=== PATIENT | female | born 1960 | race Caucasian/White ===

== ENCOUNTER 2016-07-22 15:16 | Emergency (ER) | payer OTHER ==
[~2016-07-22] VITALS: Ht 167.6 cm; Wt 92.1 kg
[~2016-07-22 15:16] MED LIST: ACETAMINOPHEN-H1 TA2 PO; ALBUTEROL SULF0.5 M1 NEB; AMOXICILLIN500 MG PO; ARIPIPRAZOLE10 MG PO; AUGMENTIN 875875 MG PO; AZITHROMYCIN250 MG PO; BACTRIM 400 MG-1 TAB PO; BACTRIM DS 8001 TA1 PO; BACTRIM DS 8001 TAB PO; CENTRUM1 TA1 PO; CEPHALEXIN500 M1 PO; CIPROFLOXACIN500 MG PO; CLEOCIN150 MG PO; CLINDAMYCIN HC300 MG PO; CLONAZEPAM2 M1; CLONAZEPAM2 M1 PO; CYCLOBENZAPRINE10 MG PO; CYMBALTA30 MG PO; CYMBALTA60 MG PO; DIAZEPAM2 MG PO; DOXEPIN HCL25 MG PO; DOXYCYCLINE HY100 M3 PO; DOXYCYCLINE100 M3 PO; DULOXETINE HCL60 MG PO; DUONEB 3 MG/3 ML3 M1 INH; FLEXERIL5 MG PO; FOLIC ACID0.4 MG PO; GABAPENTIN400 MG PO; HYDROCODONE BIT1 T11 PO; HYDROCODONE/ACE1 T14 PO; IBU-8800 MG PO; KEFLEX500 M1 PO; KLONOPIN2 MG PO; LAMICTAL150 MG PO; LAMICTAL200 MG PO; LAMICTAL25 MG PO; LASIX40 MG PO; LISINOPRIL20 MG PO; LISINOPRIL5 MG PO; LOPRESSOR25 MG PO; Lopressor25 MG PO; MACROBID100 M1 PO; MEDROL DOSEPAK4 MG PO; METFORMIN500 MG PO; MICRONASE5 MG; MIRALAX POWDER17 G1 PO; MONODOX100 MG PO; MUCINEX600 MG PO; Motrin,Rufen400 MG PO; Motrin,Rufen800 MG PO; NAPROSYN500 MG PO; NATURE'S BLEND F1 MG PO; NEURONTIN800 MG PO; NICODERM21 MG/24 H TD; NORCO 325 MG-101 TAB PO; NORCO 325 MG-51 TAB PO; NORCO 5-325 TA1 EACH PO; OXYGEN NAS; PARAFON FORTE500 MG PO; PENICILLIN VK500 MG PO; PERCOCET 325 MG1 TA2 PO; PERCOCET 325 MG1 TA7 PO; PHENAZOPYRIDIN200 MG PO; PREDNISONE10 MG PO; PREDNISONE20 MG PO; PROVENTIL0.09 MG/A1 INH; PYRIDIUM200 MG PO; Percocet 325 MG1 TAB PO; Peridex 473 ML473 ML PO; REMERON15 M2 PO; RISPERDAL2 MG PO; SEROQUEL100 MG PO; SEROQUEL400 MG PO; SPIRIVA -- 3018 MCG PO; TORADOL10 MG PO; TRAMADOL HCL50 MG PO; TRAZADONE HYDR100 MG; TRAZADONE HYDR100 MG PO; TRAZODONE100 MG PO; TRAZODONE50 MG PO; TRIMOX500 MG PO; TYLENOL EXTRA500 M2 PO; TYLENOL W/CODEI1 TA2 PO; ULTRAM50 MG PO; VALIUM5 MG PO; VANCOCIN1000 MG/25; VENLAFAXINE HY150 M2 PO; VENLAFAXINE150 MG PO; VENTOLIN0.09 MG/AC INH; VIBRAMYCIN100 MG PO; VICODIN 5/500 505 MG PO; VICODIN 500 MG-1 TAB PO; VISTARIL25 M1 PO; Ventolin 02.5 MG/3 M INH; XANAX0.25 MG PO; XANAX1 MG PO; XANAX2 MG PO; ZOFRAN ODT4 MG SL; ZOFRAN ODT8 MG PO
[2016-07-22] MEDS ORDERED: XANAX1 MG PO (15:36)
[2016-07-22 15:37] VITALS: BP 152/96
[2016-07-22] MEDS ORDERED: CYMBALTA30 MG PO (15:37)
[2016-07-22] MEDS ORDERED: ABILIFY30 MG PO (15:37)
[2016-07-22 16:15] LABS: BASO # 0.1 10*3/uL (0.0-0.1); BASO % 0.8 % (0.0-1.0); EOS # 0.3 10*3/uL (0.0-0.4); EOS % 3.2 % (1.0-4.0); HEMATOCRIT 41.7 % (37.0-47.0); HEMOGLOBIN 14.1 g/dl (12.0-16.0); LYMPH # 2.5 10*3/uL (1.3-4.4); LYMPH % 28.7 % (27.0-41.0); MEAN CELL VOLUME 94.3 fl (81.0-99.0); MEAN CORPUSCULAR HGB 31.9 pg (27.0-31.0); MEAN CORPUSCULAR HGB CONC 33.8 g/dl (33.0-37.0); MEAN PLATELET VOLUME 8.9 fl (9.6-12.3); MONO # 0.6 10*3/uL (0.1-1.0); MONO % 6.7 % (3.0-9.0); NEUT # 5.3 10*3/uL (2.3-7.9); NEUT % 60.3 % (47.0-73.0); PLATELET COUNT AUTOMATED 212 10*3/uL (130-400); RED BLOOD COUNT 4.42 10*6/uL (4.10-5.10); RED CELL DISTRI WIDTH 12.8 % (0-14.5); WHITE BLOOD COUNT 8.7 10*3/uL (4.8-10.8)
[2016-07-22 16:31] LABS: ALBUMIN 3.2 gm/dl (3.1-4.5); ALKALINE PHOSPHATASE 107 U/L (45-117); BILIRUBIN, TOTAL 0.3 mg/dl (0.2-1.0); BUN 11 mg/dl (7-24); CARBON DIOXIDE 30 mmol/L (21-32); CHLORIDE 100 mmol/L (98-107); EST GLOM FILT AFRICAN AMERICAN > 60 ml/min; GLUCOSE 132 mg/dL (65-99); POTASSIUM 4.1 mmol/L (3.5-5.1); SGOT/AST 75 IU/L (3-35); SGPT/ALT 121 U/L (12-78); SODIUM 138 mmol/L (136-145); TOTAL PROTEIN 7.1 gm/dL (6.4-8.2)
[2016-07-22 16:50] LABS: TROPONIN I < 0.015 ng/ml (<0.045)
[2016-07-22] MEDS ORDERED: NAPROSYN500 MG PO (17:49)
== END 2016-07-22 19:03 | disposition home or self-care (01) ==
LOC: ED 15:16
PROVIDERS: Student in an Organized Health Care Education/Training Program
DX: K43.9 Ventral hernia without obstruction or gangrene (principal); F17.200 Nicotine dependence, unspecified, uncomplicated; F31.9 Bipolar disorder, unspecified; J44.9 Chronic obstructive pulmonary disease, unspecified; E11.9 Type 2 diabetes mellitus without complications; I10 Essential (primary) hypertension; I50.9 Heart failure, unspecified; F12.10 Cannabis abuse, uncomplicated; G40.909 Epilepsy, unspecified, not intractable, without status epilepticus; E66.9 Obesity, unspecified; Z68.34 Body mass index [BMI] 34.0-34.9, adult; Z98.51 Tubal ligation status; Z98.890 Other specified postprocedural states; Z90.710 Acquired absence of both cervix and uterus; Z79.899 Other long term (current) drug therapy; Z88.5 Allergy status to narcotic agent; Z88.6 Allergy status to analgesic agent; Z88.1 Allergy status to other antibiotic agents

== ENCOUNTER 2016-11-19 20:50 | Inpatient (IN) | payer OTHER ==
[~2016-11-19] VITALS: Ht 165.1 cm; Wt 96.8 kg
[~2016-11-19 20:50] MED LIST changes: +ABILIFY30 MG PO
[2016-11-19 21:09] VITALS: BP 151/86
[2016-11-19 22:17] LABS: BASO # 0.1 10*3/uL (0.0-0.1); BASO % 0.9 % (0.0-1.0); EOS # 0.3 10*3/uL (0.0-0.4); EOS % 3.2 % (1.0-4.0); HEMATOCRIT 42.3 % (37.0-47.0); HEMOGLOBIN 14.1 g/dl (12.0-16.0); LYMPH % 24.2 % (27.0-41.0); MEAN CELL VOLUME 97.9 fl (81.0-99.0); MEAN CORPUSCULAR HGB 32.6 pg (27.0-31.0); MEAN CORPUSCULAR HGB CONC 33.3 g/dl (33.0-37.0); MEAN PLATELET VOLUME 9.1 fl (9.6-12.3); MONO # 0.7 10*3/uL (0.1-1.0); NEUT # 5.1 10*3/uL (2.3-7.9); NEUT % 63.1 % (47.0-73.0); PLATELET COUNT AUTOMATED 219 10*3/uL (130-400); RED BLOOD COUNT 4.32 10*6/uL (4.10-5.10); RED CELL DISTRI WIDTH 12.7 % (0-14.5); WHITE BLOOD COUNT 8.1 10*3/uL (4.8-10.8)
--- NOTE | 2016-11-19 22:24 | NUR ---
DR. WARD NOTIFIED OF CRITICAL LACTIC ACID.
[2016-11-19 22:39] LABS: ALBUMIN 2.9 gm/dl (3.1-4.5); ALKALINE PHOSPHATASE 138 U/L (45-117); BUN 8 mg/dl (7-24); CHLORIDE 104 mmol/L (98-107); CREATININE 0.91 mg/dL (0.55-1.02); POTASSIUM 3.7 mmol/L (3.5-5.1); SGOT/AST 184 IU/L (3-35); SGPT/ALT 113 U/L (12-78); SODIUM 140 mmol/L (136-145); TOTAL PROTEIN 7.2 gm/dL (6.4-8.2)
[2016-11-19 23:25] VITALS: BP 148/82
[2016-11-20] VITALS (7 sets, daily range): BP systolic 124–158; BP diastolic 72–90
--- NOTE | 2016-11-20 00:50 | NUR ---
REPORT FROM POLICE DETENTION ATTENDANT
--- NOTE | 2016-11-20 01:01 | NUR ---
DR. WARD NOTIFIED THAT LACTIC ACID IS NOW 2.7
--- NOTE | 2016-11-20 01:21 | NUR ---
A 56, admitted to , under the services of TIMOTEO Oquendo DO with a diagnosis of CELLULITIS OF THE ABD WALL. Chief complaint is CELLULITIS. Patient arrived via stretcher from ER. Monitor applied. Initial assessment completed. Vital signs taken and recorded. TIMOTEO OQUENDO DO notified of admission to the unit. Orders received. See assessment for past medical history, medications and allergies. Patient and/or family oriented to unit. [facility] visitation policy reviewed. Clothing/patient valuable form completed. PAUL FUENTES
[2016-11-20] MEDS ORDERED: NAPROXEN500 MG PO (01:28)
[2016-11-20] MEDS ORDERED: REXULTI2 MG PO (01:30)
[2016-11-20] MEDS ORDERED: GABAPENTIN800 MG PO (01:31)
--- NOTE | 2016-11-20 01:32 | NUR ---
MED REC COMPLETED WITH PATIENT ALERT AND ORIENTED TO PERSON PLACE AND TIME
[2016-11-20] MEDS ORDERED: GLUCOPHAGE1000 MG PO (01:37)
[2016-11-20] MEDS ORDERED: JANUVIA100 MG PO (01:38)
[2016-11-20] MEDS ORDERED: DOXEPIN25 MG PO (01:40)
[2016-11-20] MEDS ORDERED: SPIRIVA -- 3018 MCG INH (01:42)
[2016-11-20] MEDS ORDERED: COMBIVENT RESPIM4 GM INH (01:43)
[2016-11-20] MEDS ORDERED: CYCLOBENZAPRINE10 MG PO (01:45)
[2016-11-20] MEDS ORDERED: LAMOTRIGINE200 MG PO (01:46)
--- NOTE | 2016-11-20 02:43 | NUR ---
ATTEMPTED TO CALL DR CALLES FOR PATIENT REQUESTING XANAX. NO ANSWER
--- NOTE | 2016-11-20 02:54 | NUR ---
ORDER FROM DR CALLES FOR 1MG PO XANAX NOW
[2016-11-20 03:09] LABS: BASO # 0.1 10*3/uL (0.0-0.1); BASO % 0.7 % (0.0-1.0); EOS # 0.2 10*3/uL (0.0-0.4); EOS % 2.8 % (1.0-4.0); HEMATOCRIT 37.9 % (37.0-47.0); HEMOGLOBIN 12.6 g/dl (12.0-16.0); LYMPH # 1.8 10*3/uL (1.3-4.4); LYMPH % 27.6 % (27.0-41.0); MEAN CELL VOLUME 97.9 fl (81.0-99.0); MEAN CORPUSCULAR HGB 32.6 pg (27.0-31.0); MEAN CORPUSCULAR HGB CONC 33.2 g/dl (33.0-37.0); MEAN PLATELET VOLUME 8.5 fl (9.6-12.3); MONO # 0.6 10*3/uL (0.1-1.0); MONO % 8.7 % (3.0-9.0); NEUT % 59.8 % (47.0-73.0); PLATELET COUNT AUTOMATED 169 10*3/uL (130-400); RED BLOOD COUNT 3.87 10*6/uL (4.10-5.10); RED CELL DISTRI WIDTH 12.8 % (0-14.5); WHITE BLOOD COUNT 6.7 10*3/uL (4.8-10.8)
[2016-11-20 03:22] LABS: ACT PARTIAL THROMBO TIME 28.8 SECONDS (20.8-31.5); BUN 8 mg/dl (7-24); CHLORIDE 106 mmol/L (98-107); CREATININE 0.66 mg/dL (0.55-1.02); POTASSIUM 3.4 mmol/L (3.5-5.1); SODIUM 141 mmol/L (136-145)
[2016-11-20 03:27] LABS: CHOLESTEROL 148 mg/dL (<200); HDL CHOLESTEROL 36 mg/dl (40-60); LDL CHOLESTEROL 80 mg/dL (9-159); TRIGLYCERIDES 162 mg/dl (<150); VLDL CHOLESTEROL 32 mg/dL (6-40)
--- NOTE | 2016-11-20 05:33 | NUR ---
DR AMES AWARE OF CONSULT. STATES WILL SEE THE PATIENT IN A COUPLE OF HOURS. NO NEW ORDERS AT THIS TIME.
--- NOTE | 2016-11-20 07:40 | NUR ---
MEDICATED WITH NORCO FOR ABD PAIN SHE RATES A 6.
--- NOTE | 2016-11-20 07:45 | NUR ---
DR. SHIPLEY NOTIFIED THAT PATIENT WAS REQUESTING HER INHALERS TO BE ORDERED OR A BREATHING TREATMENT FOR SOB, COUGH AND WHEEZING.
--- NOTE | 2016-11-20 09:00 | NUR ---
NO FURTHER COMPLAINTS OF PAIN.
--- NOTE | 2016-11-20 10:00 | NUR ---
AM MEDS TAKEN.
--- NOTE | 2016-11-20 10:35 | NUR ---
CHELLE VELASQUEZ [id number] Please refer to the physician's history and physical for past medical history, comorbid conditions, and allergies. Diagnosis: CELLULITIS OF ABD WALL VENTRAL HERNIA COPD Saroj Score: 22,LOW OR NO RISK WOUND DESCRIPTIONS: Location of the wound: left lower abdoman Type of wound: stage 3 Thickness: Full Size: 1.3cm x 2cm x 0.1cm Tunneling: none Undermining: none Sinus Tract: none Presence of Exudate: none Amount: None Color: Yellow, brown Odor: None Periwound Skin Appearance: Erythema Wound edges: approximated Location of the wound: right lower abdoman Type of wound: stage 3 Thickness: Full Size: 0.5cm x 0.7cm x 0.1cm Tunneling: none Undermining: none Sinus Tract: none Presence of Exudate: Amount: None Color: Brown Odor: None Periwound Skin Appearance: Normal Wound edges: approximated Pain (associated with wound): patient denied pain at time of assessment How does patient state this happened? patient stated she has had these wounds "for awhile" and cannot get them to heal completely. Location of the wound: left knee Type of wound: trauma Thickness: Partial Size: 4.5cm x 2.5cm x <0.1cm Tunneling: none Undermining: none Sinus Tract: none Presence of Exudate: Amount: None Color: Red Odor: None Periwound Skin Appearance: Normal Wound edges: closed Pain (associated with wound): patient denied pain at time of assessment How does patient state this happened? Patient states she fell a couple weeks ago. Patient refused treatment except for sureprep to this area. Location of the wound: Left great toe Type of wound: stage 3 Thickness: Full Size: 0.7cm x 1.5cm x <0.1 cm Tunneling: none Undermining: none Sinus Tract: none Presence of Exudate: none Amount: None Color: Yellow Odor: None Periwound Skin Appearance: Normal Wound edges: approximated Pain (associated with wound): patient denied pain at time of assessment How does patient state this happened? Patient states she has been following podiatry in [facility] "for awhile". Patient states she had seen the office rental clerk 11/16/16 but no treatment at home. Patient refused podiatry consult and stated she would follow up with the office rental clerk in [place]. PAtient did agree for Dr. De La Rosa to look at the wound. If wound is on legs/feet or hands, capillary refill time, pulses, color temp, sensation: Capillary refill <3 seconds. Pulse palpable. Surface the patient is resting on: Position Pro SKIN PREVENTION RECOMMENDATION: 1. Pressure redistribution support surface as appropriate 2. Elevate heels 3. Remove boots/TEDS every shift and reapply 4. Head of bed 30 degrees as tolerated 5. Assess nutrition and hydration 6. Manage moisture 7. Avoid the use of containment devices while in bed 8. Use absorptive products on surfaces limit layers of linens on bed 9. Turn and reposition every 1-2 hours in bed and every 1 hour in chair as tolerated 10. Weight shifts every 15 minutes while up in chair 11. Offloading with pillows or device to keep heels elevated off bed 12. Monitor skin at least every shift 13. Inspect under medical devices twice a day WOUND TREATMENT RECOMMENDATIONS: Consult surgery for possible debridement of abdoman wounds and left great toe. Abdoman wounds: Cleanse wound NS. Apply sureprep, versatel, therahoney and cover with optifoam gentle. Left knee wound apply sureprep and leave open to air Left great toe: Cleanse wound NS. Apply sureprep, therahoney and cover with dry gauze.
--- NOTE | 2016-11-20 11:57 | NUR ---
MEDICATED WITH NORCO FOR ABD PAIN SHE RATES A 6 ON THE PAIN SCALE.
--- NOTE | 2016-11-20 13:00 | NUR ---
PATIENT RESTING WITH NO VOICED COMPLAINTS.
--- NOTE | 2016-11-20 16:44 | NUR ---
MEDICATED WITH NORCO FOR ABD PAIN HE RATES A 6 ON THE PAIN SCALE.
--- NOTE | 2016-11-20 17:40 | NUR ---
NO FURTHER COMPLAINTS OF PAIN.
--- NOTE | 2016-11-20 20:00 | NUR ---
PT SITTING IN BED, WATCHING TV. PT IS A&O X3. PT REPORTS NO DISTRESS AT THIS TIME. LUNGS DIMINISHED AND WHEEZING IN ALL VALDEZ WITH A HARSH COUGH. NO EDEMA NOTED. BOWEL SOUNDS PRESENT X4 QUADS.
--- NOTE | 2016-11-20 20:10 | NUR ---
PT REQUESTED PAIN MEDICATION FOR ABDOMINAL PAIN. PER PT, PAIN IS CONSTANT AND RATED AT 8 OUT OF 10 ON 0-10 SCALE. NORCO WAS GIVEN.
--- NOTE | 2016-11-20 21:03 | NUR ---
PT REQUESTED MEDICATION FOR HEARTBURN AND A NICOTINE PATCH. TELEPHONED DR. BAZZI PER PT REQUEST. ORDERS RECEIVED.
--- NOTE | 2016-11-20 21:05 | NUR ---
PAIN MEDICATION EFFECTIVE. PT RATES PAIN AT 3 OUT OF 10.
--- NOTE | 2016-11-20 22:37 | NUR ---
PT REQUESTED MEDICATION TO HELP HER SLEEP. RESTORIL WAS GIVEN.
--- NOTE | 2016-11-20 22:58 | NUR ---
PT REQUESTED MEDICATION FOR HER LEFT KNEE. HER KNEE WAS CLEASNED WITH NORMAL SALINE, WIPED DRY, AND SUREPREP WAS APPLIED. PT TOLERATED WELL. CURRENTLY UP, SITTING IN CHAIR.
--- NOTE | 2016-11-20 23:51 | NUR ---
PT REQUESTED PAIN MEDICATION. PT RATES PAIN AT 7 OUT OF 10 IN THE ABDOMINAL AREA AND CONSTANT. NORCO WAS GIVEN.
[2016-11-21] VITALS: BP 155/91
--- NOTE | 2016-11-21 00:50 | NUR ---
PAIN MEDICATION WAS EFFECTIVE. PT SLEEPING COMFORTABLY, NO DISTRESS NOTED.
--- NOTE | 2016-11-21 03:52 | NUR ---
NORCO GIVEN PER ORDER FOR LOWER ABD PAIN RATED "7". SEE MAR.
--- NOTE | 2016-11-21 04:45 | NUR ---
PARKER HELPING WITH PAIN PER PT. TAKES EDGE OFF PAIN RATED "4".
[2016-11-21 06:26] LABS: BASO % 0.8 % (0.0-1.0); EOS # 0.2 10*3/uL (0.0-0.4); EOS % 3.5 % (1.0-4.0); HEMATOCRIT 36.9 % (37.0-47.0); HEMOGLOBIN 12.1 g/dl (12.0-16.0); LYMPH # 1.8 10*3/uL (1.3-4.4); LYMPH % 34.7 % (27.0-41.0); MEAN CELL VOLUME 99.5 fl (81.0-99.0); MEAN CORPUSCULAR HGB 32.6 pg (27.0-31.0); MEAN CORPUSCULAR HGB CONC 32.8 g/dl (33.0-37.0); MONO # 0.5 10*3/uL (0.1-1.0); MONO % 9.6 % (3.0-9.0); NEUT # 2.6 10*3/uL (2.3-7.9); NEUT % 51.2 % (47.0-73.0); PLATELET COUNT AUTOMATED 151 10*3/uL (130-400); RED BLOOD COUNT 3.71 10*6/uL (4.10-5.10); RED CELL DISTRI WIDTH 12.8 % (0-14.5); WHITE BLOOD COUNT 5.1 10*3/uL (4.8-10.8)
[2016-11-21 07:17] LABS: BUN 9 mg/dl (7-24); CREATININE 0.61 mg/dL (0.55-1.02); MAGNESIUM 1.9 mg/dL (1.5-2.1)
[2016-11-21 07:20] LABS: CHLORIDE 106 mmol/L (98-107); SODIUM 140 mmol/L (136-145)
[2016-11-21 08:00] VITALS: BP 170/82
--- NOTE | 2016-11-21 08:59 | NUR ---
MEDICATED WITH NORCO FOR ABD PAIN SHE RATES A 5 ON THE PAIN SCALE.
[2016-11-21 09:03] VITALS: BP 150/80
--- NOTE | 2016-11-21 10:00 | NUR ---
NO FURTHER COMPLAINTS OF PAIN.
--- NOTE | 2016-11-21 10:30 | NUR ---
AM MEDS TAKEN.
[2016-11-21] MEDS ORDERED: CLEOCIN HCL300 MG PO (11:15)
--- NOTE | 2016-11-21 12:20 | NUR ---
Discharge instructions reviewed with patient/family. Patient receptive and verbalizes understanding. Follow-up care arranged. Written instructions given to patient/family. JN BHARDWAJ
== END 2016-11-21 12:20 | disposition home or self-care (01) | DRG 871 ==
LOC: ED 20:50 → EDHOLD 23:38 → 5E 23:52
PROVIDERS: Emergency Medicine Emergency Medical Services; Internal Medicine; Internal Medicine Nephrology; ADMIT Internal Medicine
DX: A41.9 Sepsis, unspecified organism (principal); R65.21 Severe sepsis with septic shock; E87.2 Acidosis; I11.0 Hypertensive heart disease with heart failure; I50.9 Heart failure, unspecified; L03.311 Cellulitis of abdominal wall; L02.211 Cutaneous abscess of abdominal wall; K43.9 Ventral hernia without obstruction or gangrene; E11.65 Type 2 diabetes mellitus with hyperglycemia; J44.9 Chronic obstructive pulmonary disease, unspecified; R74.0 Nonspecific elevation of levels of transaminase and lactic acid dehydrogenase [LDH]; E66.9 Obesity, unspecified; F31.9 Bipolar disorder, unspecified; G40.909 Epilepsy, unspecified, not intractable, without status epilepticus; G60.0 Hereditary motor and sensory neuropathy; D64.9 Anemia, unspecified; Z72.0 Tobacco use; Z68.35 Body mass index [BMI] 35.0-35.9, adult; Z88.6 Allergy status to analgesic agent; Z88.1 Allergy status to other antibiotic agents; Z88.5 Allergy status to narcotic agent; Z79.899 Other long term (current) drug therapy; Z99.81 Dependence on supplemental oxygen; Z98.51 Tubal ligation status; Z90.710 Acquired absence of both cervix and uterus; Z82.49 Family history of ischemic heart disease and other diseases of the circulatory system

== ENCOUNTER 2016-12-08 14:52 | Emergency (ER) | payer OTHER ==
[~2016-12-08] VITALS: Ht 167.6 cm; Wt 99.3 kg
[~2016-12-08 14:52] MED LIST changes: +CLEOCIN HCL300 MG PO; +COMBIVENT RESPIM4 GM INH; +DOXEPIN25 MG PO; +GABAPENTIN800 MG PO; +GLUCOPHAGE1000 MG PO; +JANUVIA100 MG PO; +LAMOTRIGINE200 MG PO; +NAPROXEN500 MG PO; +REXULTI2 MG PO; +SPIRIVA -- 3018 MCG INH
[2016-12-08 14:59] VITALS: BP 143/82
[2016-12-08 15:38] LABS: BASO # 0.1 10*3/uL (0.0-0.1); EOS # 0.4 10*3/uL (0.0-0.4); HEMATOCRIT 47.1 % (37.0-47.0); HEMOGLOBIN 16.1 g/dl (12.0-16.0); LYMPH # 2.4 10*3/uL (1.3-4.4); LYMPH % 26.4 % (27.0-41.0); MEAN CELL VOLUME 94.6 fl (81.0-99.0); MEAN CORPUSCULAR HGB 32.3 pg (27.0-31.0); MEAN CORPUSCULAR HGB CONC 34.2 g/dl (33.0-37.0); MEAN PLATELET VOLUME 9.5 fl (9.6-12.3); MONO # 0.7 10*3/uL (0.1-1.0); MONO % 7.9 % (3.0-9.0); NEUT # 5.4 10*3/uL (2.3-7.9); NEUT % 60.4 % (47.0-73.0); PLATELET COUNT AUTOMATED 249 10*3/uL (130-400); RED BLOOD COUNT 4.98 10*6/uL (4.10-5.10); RED CELL DISTRI WIDTH 12.3 % (0-14.5)
[2016-12-08 15:53] LABS: ALBUMIN 3.5 gm/dl (3.1-4.5); ALKALINE PHOSPHATASE 155 U/L (45-117); BUN 13 mg/dl (7-24); CHLORIDE 99 mmol/L (98-107); CREATININE 0.72 mg/dL (0.55-1.02); LIPASE 615 U/L (73-393); POTASSIUM 4.3 mmol/L (3.5-5.1); SGOT/AST 107 IU/L (3-35); SGPT/ALT 144 U/L (12-78); SODIUM 136 mmol/L (136-145); TOTAL PROTEIN 8.8 gm/dL (6.4-8.2)
[2016-12-08] MEDS ORDERED: NORCO 5-325 TA1 EACH PO (16:08)
[2016-12-08] MEDS ORDERED: CEFADROXIL500 M1 PO (16:08)
[2016-12-08] MEDS ORDERED: bactrim ds PO (16:08)
== END 2016-12-08 16:23 | disposition home or self-care (01) ==
LOC: ED 14:52
PROVIDERS: Physician Assistant
DX: L03.311 Cellulitis of abdominal wall (principal); Z88.6 Allergy status to analgesic agent; Z88.1 Allergy status to other antibiotic agents; Z88.5 Allergy status to narcotic agent; Z98.51 Tubal ligation status; Z90.710 Acquired absence of both cervix and uterus; F17.200 Nicotine dependence, unspecified, uncomplicated; F10.20 Alcohol dependence, uncomplicated; Z82.49 Family history of ischemic heart disease and other diseases of the circulatory system; L02.211 Cutaneous abscess of abdominal wall

== ENCOUNTER → 2016-12-16 | Outpatient (CLI) | payer OTHER ==
[~2016-12-16] MED LIST changes: +CEFADROXIL500 M1 PO; +bactrim ds PO
== END | disposition home or self-care (01) ==
LOC: WOUNDCARE 02:57
DX: E11.622 Type 2 diabetes mellitus with other skin ulcer (principal); L98.491 Non-pressure chronic ulcer of skin of other sites limited to breakdown of skin; E66.01 Morbid (severe) obesity due to excess calories; K43.2 Incisional hernia without obstruction or gangrene; F32.9 Major depressive disorder, single episode, unspecified; F41.9 Anxiety disorder, unspecified; I10 Essential (primary) hypertension; Z90.710 Acquired absence of both cervix and uterus; F17.210 Nicotine dependence, cigarettes, uncomplicated; Z72.89 Other problems related to lifestyle; Z68.33 Body mass index [BMI] 33.0-33.9, adult

== ENCOUNTER → 2016-12-23 | Outpatient (CLI) | payer OTHER ==
[~2016-12-23] MED LIST changes: +FLONASE ALLERG9.9 ML NAS; +LISINOPRIL10 M1 PO; +METFORMIN HCL1000 MG PO; +NAPROXEN500 M1 PO; +NTS1 EACH TD; +PROAIR HFA8.5 GM INH; +REMERON45 M1 PO; +SPIRIVA 5 CAPS18 MCG INH; +VENTOLIN 02.5 MG/3 M INH; +ZYRTEC10 MG PO
== END | disposition home or self-care (01) ==
LOC: WOUNDCARE 02:47
DX: E10.622 Type 1 diabetes mellitus with other skin ulcer (principal); L02.211 Cutaneous abscess of abdominal wall; L98.491 Non-pressure chronic ulcer of skin of other sites limited to breakdown of skin; E66.01 Morbid (severe) obesity due to excess calories; K43.9 Ventral hernia without obstruction or gangrene; F32.9 Major depressive disorder, single episode, unspecified; I10 Essential (primary) hypertension; F41.9 Anxiety disorder, unspecified; Z90.710 Acquired absence of both cervix and uterus; F17.210 Nicotine dependence, cigarettes, uncomplicated; Z72.89 Other problems related to lifestyle

== ENCOUNTER 2016-12-26 17:12 | Inpatient (IN) | payer OTHER ==
[~2016-12-26] VITALS: Ht 167.6 cm; Wt 98.1 kg
[~2016-12-26 17:12] MED LIST changes: -FLONASE ALLERG9.9 ML NAS; -LISINOPRIL10 M1 PO; -METFORMIN HCL1000 MG PO; -NAPROXEN500 M1 PO; -NTS1 EACH TD; -PROAIR HFA8.5 GM INH; -REMERON45 M1 PO; -SPIRIVA 5 CAPS18 MCG INH; -VENTOLIN 02.5 MG/3 M INH; -ZYRTEC10 MG PO
[2016-12-26 17:21] VITALS: BP 160/95
[2016-12-26 17:59] LABS: BASO # 0.1 10*3/uL (0.0-0.1); BASO % 0.9 % (0.0-1.0); EOS # 0.3 10*3/uL (0.0-0.4); EOS % 4.3 % (1.0-4.0); HEMATOCRIT 41.3 % (37.0-47.0); MEAN CELL VOLUME 95.6 fl (81.0-99.0); MEAN CORPUSCULAR HGB 32.4 pg (27.0-31.0); MEAN CORPUSCULAR HGB CONC 33.9 g/dl (33.0-37.0); MEAN PLATELET VOLUME 9.5 fl (9.6-12.3); MONO # 0.6 10*3/uL (0.1-1.0); MONO % 8.3 % (3.0-9.0); NEUT # 4.5 10*3/uL (2.3-7.9); NEUT % 60.1 % (47.0-73.0); PLATELET COUNT AUTOMATED 192 10*3/uL (130-400); RED BLOOD COUNT 4.32 10*6/uL (4.10-5.10); RED CELL DISTRI WIDTH 12.6 % (0-14.5); WHITE BLOOD COUNT 7.5 10*3/uL (4.8-10.8)
[2016-12-26 18:00] VITALS: BP 155/87
[2016-12-26 18:15] LABS: ALBUMIN 3.4 gm/dl (3.1-4.5); BUN 8 mg/dl (7-24); CHLORIDE 103 mmol/L (98-107); CREATININE 0.65 mg/dL (0.55-1.02); POTASSIUM 4.6 mmol/L (3.5-5.1); SGOT/AST 277 IU/L (3-35); SGPT/ALT 217 U/L (12-78); SODIUM 138 mmol/L (136-145)
[2016-12-26 18:18] LABS: ALKALINE PHOSPHATASE 139 U/L (45-117)
--- NOTE | 2016-12-26 19:10 | NUR ---
NOTIFIED PHYSCIAN OF PATIENTS PAIN RATED 10/10 TO LEFT ABDOMEN AT SITE OF ABCESS. PHYSCIAN INFORMED ME THAT SHE WOULD LIKE TO REVIEW PATIENTS CHARTS AND SEE PATIENT BEFORE MEDICATING. INFORMED PATIENT OF PHYSCIANS REPLY.
--- NOTE | 2016-12-26 20:00 | NUR ---
PATIENT STILL HAS NOT BEEN SEEN BY PHYSICIAN. PATIENT IS REQUESTING PAIN MEDICATION. PATIENT STATES SHE IS SIGNING OUT AMA IN 15 MINUTES IF PHYSCIAN HAS NOT SEEN HER BY THEN.
--- NOTE | 2016-12-26 20:15 | NUR ---
PATIENT SIGNED OUT AMA.
--- NOTE | 2016-12-26 20:26 | NUR ---
The patient, CHELLE VELASQUEZ, 56, 64, [id number], [id number], presented to the Emergency Department at 1712. The patient's Chief Complaint was LLQ ABDOMINAL . The patient subsequently left "Against Medical Advice" at 2014. Treatment completed included FLUIDS, LABS, IMAGING . Possible complications and consequences of not following medical advice were clearly explained to the patient by Dr. WARD , and JORGE REID. Assessment of the patient's competence, for making the decision to refuse completion of previously requested exam and treatment, includes alert and oriented. Attempts 1 made to get patient involved in persuading the patient to accept, JOSE DANIEL Miller DO, the physician's recommendations. Discussion included RISKS OF LEAVING . The patient's response was WANTS PAIN MEDICATION . Family/friends who witnessed the discussion includes . Signatures WERE requested. The patient DID sign the chart; this was witnessed by JORGE REID. The patient's reason for departing, prior to completion of treatment was "tired of waiting". The patient's disposition is dc against medical advice, to the care of patient. Arrangements have been made for the ED staff to "Call Back" the patient the following day, to inquire about the patient's medical status and encourage CHELLE VELASQUEZ, to seek medical attention, if this has not been completed. JORGE POST.
[2016-12-26 21:30] VITALS: BP 161/77
--- NOTE | 2016-12-26 21:32 | NUR ---
PATIENT TO 5TH FLOOR IMC.
--- NOTE | 2016-12-26 22:46 | NUR ---
Time: 2136 A 56 year old FEMALE admitted to 5E under services of DAVIDA DIAZ DO Pt. arrived via from ER. Chief complaint: ABDOMINAL PAIN, ABCESS ON LLQ OF ABDOMEN. LENO WISEMAN
[2016-12-27] VITALS: BP 133/70
[2016-12-27] MEDS ORDERED: CYMBALTA60 MG PO (00:03)
[2016-12-27] MEDS ORDERED: ZYRTEC10 MG PO (00:06)
--- NOTE | 2016-12-27 00:09 | NUR ---
MEDICATION LIST IS UP TO DATE VIA PATIENT MEDICATION LIST.
--- NOTE | 2016-12-27 00:18 | NUR ---
DR REED WAS NOTIFIED OF MEDICATION ORDERS PLACED IN FOR REVIEW AND WOUND ORDERS ARE NEEDED FOR AN ABDOMINAL ABCESS. NO ORDERS RECEIVED.
--- NOTE | 2016-12-27 01:42 | NUR ---
PATIENT COMPLAINS OF ABDOMINAL PAIN, 09/23. DR MARIE WAS NOTIFIED AND GAVE TO FOR DILAUDID 1MG IV Q3 HOURS PRN FOR ABDOMINAL PAIN.
--- NOTE | 2016-12-27 03:00 | NUR ---
PAIN MEDICATION EFFECTIVE, PAIN IN ABDOMEN SUBSIDED, NOW 5/10.
--- NOTE | 2016-12-27 05:12 | NUR ---
24 HR chart check completed.
--- NOTE | 2016-12-27 05:33 | NUR ---
PATIENT LYING IN BED ALL NIGHT EXCEPT TO TOILET. ATB'S GIVEN PER ORDER. IV INTACT. NO S/S OF DISTRESS. OCC. PAIN IN ABDOMEN. ABDOMINAL WOUND CLEANED AND DRESSED. KJ HOSE PLACED.
[2016-12-27 06:41] LABS: BASO # 0.1 10*3/uL (0.0-0.1); BASO % 0.8 % (0.0-1.0); EOS # 0.3 10*3/uL (0.0-0.4); EOS % 4.5 % (1.0-4.0); HEMATOCRIT 41.6 % (37.0-47.0); HEMOGLOBIN 13.9 g/dl (12.0-16.0); LYMPH # 1.9 10*3/uL (1.3-4.4); LYMPH % 31.2 % (27.0-41.0); MEAN CELL VOLUME 97.9 fl (81.0-99.0); MEAN CORPUSCULAR HGB 32.7 pg (27.0-31.0); MEAN CORPUSCULAR HGB CONC 33.4 g/dl (33.0-37.0); MEAN PLATELET VOLUME 9.2 fl (9.6-12.3); MONO # 0.5 10*3/uL (0.1-1.0); MONO % 8.2 % (3.0-9.0); NEUT # 3.4 10*3/uL (2.3-7.9); PLATELET COUNT AUTOMATED 167 10*3/uL (130-400); RED BLOOD COUNT 4.25 10*6/uL (4.10-5.10); RED CELL DISTRI WIDTH 12.9 % (0-14.5); WHITE BLOOD COUNT 6.2 10*3/uL (4.8-10.8)
[2016-12-27 06:44] VITALS: BP 133/70
[2016-12-27 07:02] LABS: ACT PARTIAL THROMBO TIME 29.5 SECONDS (20.8-31.5)
--- NOTE | 2016-12-27 07:05 | NUR ---
DR ARRIAZA NOTIFIED OF PATIENT IN HOSPITAL. DR ARRIAZA SAID WOULD BE IN.
[2016-12-27 07:24] LABS: BUN 10 mg/dl (7-24); CHLORIDE 103 mmol/L (98-107); CREATININE 0.67 mg/dL (0.55-1.02); SODIUM 139 mmol/L (136-145)
[2016-12-27 08:00] VITALS: BP 163/90
--- NOTE | 2016-12-27 08:04 | NUR ---
Shift chart check completed.
--- NOTE | 2016-12-27 09:00 | NUR ---
Program Services Assistant in to talk to patient. Patient states lives at home with daughter. There are few steps in the home. Physician: desirae huffman Pharmacy: [facility] Home health services: none Patient's level of ADLs: INDEPENDENT Patient has working utilities: all working DME: nebulizer Follow-up physician's appointment after d/c: will be made by hospitalist nurse director upon discharge Does patient want to access PORTAL?: no Discharge plan discussed with patient, patient lives at home with daughter, states she is independent in adls and ambulation, has a nebulizer at home, patient states she will be going back home when able and denies any home needs. XIOMARA FLORES
--- NOTE | 2016-12-27 09:12 | NUR ---
CALLED [facility] TO VERIFY HOME MEDS. THEY STATED THEY WOULD FAX A LIST. WILL AWAIT THE LIST FROM PHARMACY
--- NOTE | 2016-12-27 09:30 | NUR ---
PATIENT MEDICATED WITH IVP DILAUDID FOR PAIN 8/10 IN HER ABDOMEN
--- NOTE | 2016-12-27 10:00 | NUR ---
NOTIFIED DR VIEIRA THAT PATIENT'S HOME MEDS WERE VERIFIED AND THEY HAVE NOT BEEN ORDERED YET. ALSO ADVISED THAT PATIENT WANTED A NICOTINE PATCH. HE STATED HE WAS ALREADY ON THAT.
[2016-12-27] MEDS ORDERED: FLONASE ALLERG9.9 ML NAS (10:18)
[2016-12-27] MEDS ORDERED: PROAIR HFA8.5 GM INH (10:19)
[2016-12-27] MEDS ORDERED: VENTOLIN 02.5 MG/3 M INH (10:20)
[2016-12-27] MEDS ORDERED: REMERON45 M1 PO (10:21)
[2016-12-27] MEDS ORDERED: LAMICTAL200 MG PO (10:26)
[2016-12-27] MEDS ORDERED: GABAPENTIN800 MG PO (10:27)
[2016-12-27] MEDS ORDERED: SPIRIVA 5 CAPS18 MCG INH (10:28)
[2016-12-27] MEDS ORDERED: NAPROXEN500 M1 PO (10:29)
[2016-12-27] MEDS ORDERED: LISINOPRIL10 M1 PO (10:30)
--- NOTE | 2016-12-27 10:30 | NUR ---
PATIENT STATES MEDICATION EFFECTIVE
[2016-12-27] MEDS ORDERED: CYCLOBENZAPRINE10 MG PO (10:31)
[2016-12-27] MEDS ORDERED: METFORMIN HCL1000 MG PO (10:31)
[2016-12-27] MEDS ORDERED: NORCO 5-325 TA1 EACH PO (10:33)
--- NOTE | 2016-12-27 10:43 | NUR ---
HOME MEDS VERIFIED WITH [facility]. DR CALLES NOTIFIED
[2016-12-27 12:00] VITALS: BP 137/80
--- NOTE | 2016-12-27 12:53 | NUR ---
PT REQUESTED AND WAS MEDICATED WITH DILAUDID IV FOR C/O ABDOMINAL PAIN. CALL LIGHT IN REACH. WILL MONITOR
--- NOTE | 2016-12-27 13:23 | NUR ---
CHELLE VELASQUEZ [id number] Please refer to the physician's history and physical for past medical history, comorbid conditions, and allergies. Diagnosis: PARTIAL BOWEL OBSTRUCTION ACUTE ABDOMINAL PAIN Saroj Score: 18,AT RISK WOUND DESCRIPTIONS: Location of the wound: left lower quadrant Thickness: Full Size: 2.3cm x 2.5cm x 0.2cm Tunneling: none Undermining: none Sinus Tract: none Presence of Exudate: Purulent Amount: Light Color: Red, yellow, black Odor: None Periwound Skin Appearance: Erythema Wound edges: approximated Pain (associated with wound): none at time of assessment How does patient state this happened? pt stated it started about 2 months ago. Surface the patient is resting on: Position Pro SKIN PREVENTION RECOMMENDATION: 1. Pressure redistribution support surface as appropriate 2. Elevate heels 3. Remove boots/TEDS every shift and reapply 4. Head of bed 30 degrees as tolerated 5. Assess nutrition and hydration 6. Manage moisture 7. Avoid the use of containment devices while in bed 8. Use absorptive products on surfaces limit layers of linens on bed 9. Turn and reposition every 1-2 hours in bed and every 1 hour in chair as tolerated 10. Weight shifts every 15 minutes while up in chair 11. Offloading with pillows or device to keep heels elevated off bed 12. Monitor skin at least every shift 13. Inspect under medical devices twice a day WOUND TREATMENT RECOMMENDATIONS: Cleanse LLQ with nss and apply sureprep around wound cover wound bed with therahoney cover with optifoam gentle.
--- NOTE | 2016-12-27 13:45 | NUR ---
PATIENT STATES MEDICATION EFFECTIVE
--- NOTE | 2016-12-27 14:47 | NUR ---
NOTIFIED DR CALLES THAT PATIENT'S HOME MEDS ARE STILL NOT ORDERED.
--- NOTE | 2016-12-27 15:54 | NUR ---
PATIENT MEDICATED WITH IVP DILAUDID FOR PAIN RATED 8/10
[2016-12-27 16:00] VITALS: BP 163/93
--- NOTE | 2016-12-27 16:50 | NUR ---
PATIENT STATES MEDICATION WAS EFFECTIVE
--- NOTE | 2016-12-27 18:04 | NUR ---
PATIENT HAS NOT BEEN BEDICATED WITH XANAX ALL DAY. PATIENT MEDICATED WITH HER XANAX THAT IS ORDERED FOR 10PM. PATIENT IS AWARE THAT SHE WILL NOT BE GETTING IT AT 10PM TONIGHT AND SHE IS AWARE.
--- NOTE | 2016-12-27 20:10 | NUR ---
REQUESTING PAIN MEDICATION FOR C/O LEFT LOWER ABDOMINAL PAIN RATED A 9/10. MEDICATED WITH DILAUDID PER PT'S REQUEST & M.D. ORDERS.
[2016-12-27 22:00] VITALS: BP 118/76
--- NOTE | 2016-12-27 22:00 | NUR ---
STATES DILAUDID GIVEN EARLIER EFFECTIVE.
--- NOTE | 2016-12-27 23:27 | NUR ---
MEDICATED WITH DILAUDID FOR C/O LEFT SIDED ABDOMINAL PAIN RATED A 9/10.
[2016-12-28] VITALS: BP 125/78
--- NOTE | 2016-12-28 02:25 | NUR ---
MEDICATED WITH PRN DILAUDID FOR C/O LLQ ABDOMINAL PAIN. RATES 10/24.
--- NOTE | 2016-12-28 04:38 | NUR ---
States Diladid minimally effective to decrease abdomen pain, rates as a 7/10. Resting quietly in bed. Resp easy and regular.
[2016-12-28 07:09] LABS: BASO # 0.1 10*3/uL (0.0-0.1); BASO % 1.1 % (0.0-1.0); EOS # 0.3 10*3/uL (0.0-0.4); EOS % 4.2 % (1.0-4.0); HEMATOCRIT 41.5 % (37.0-47.0); HEMOGLOBIN 14.1 g/dl (12.0-16.0); LYMPH % 27.3 % (27.0-41.0); MEAN CELL VOLUME 96.7 fl (81.0-99.0); MEAN CORPUSCULAR HGB 32.9 pg (27.0-31.0); MEAN PLATELET VOLUME 9.2 fl (9.6-12.3); MONO # 0.8 10*3/uL (0.1-1.0); MONO % 10.5 % (3.0-9.0); NEUT # 4.1 10*3/uL (2.3-7.9); NEUT % 56.5 % (47.0-73.0); PLATELET COUNT AUTOMATED 163 10*3/uL (130-400); RED BLOOD COUNT 4.29 10*6/uL (4.10-5.10); RED CELL DISTRI WIDTH 12.8 % (0-14.5); WHITE BLOOD COUNT 7.3 10*3/uL (4.8-10.8)
[2016-12-28 07:36] LABS: BUN 10 mg/dl (7-24); CHLORIDE 99 mmol/L (98-107); CREATININE 0.68 mg/dL (0.55-1.02); POTASSIUM 4.1 mmol/L (3.5-5.1); SODIUM 137 mmol/L (136-145)
--- NOTE | 2016-12-28 07:39 | NUR ---
Requested and medicated with Diladid at 0532 for complaints of LLABDOMEN pain rated a 7/10. Will continue to monitor.
[2016-12-28 08:00] VITALS: BP 123/81
--- NOTE | 2016-12-28 08:30 | NUR ---
PATIENT IS RESTING IN A CHAIR. IS C/O PAIN IN HER ABDOMEN RATED 8-9/10. PATIENT HAS A ANIMAL SCIENCE INSTRUCTOR FROM [facility]. THEY ARE GOING TO MEDICATE HER FOR HER PAIN. SHE IS A&OX3. DENIES ANY SOB. IS WEARING 2L O2. LUNGS DIMINISHED. DENIES ANY CP, TRACE BLE EDEMA,TEDS ON, PPP. DEIES ANY N/V. DOES HAVE A WOUND TO HER LL ABDOMEN. SHE ALSO HAS A HERNIA TO HER LL ABDOMEN. SHE DOES HAVE NORMOACTIVE BOWEL SOUNDS. AMBULATORY.
--- NOTE | 2016-12-28 08:57 | NUR ---
PT C/O ABD PAIN 08/23. ADMIN 1ML DILOTTED. WILL CONTINUE TO ASSESS. [facility]
--- NOTE | 2016-12-28 09:00 | NUR ---
case management visits with patient, patient will be going home when able, denies any home needs
--- NOTE | 2016-12-28 09:30 | NUR ---
PT STATED "THE PAIN IS NOW A 2/10 THE MED HELPED". ADMINISTRATION SUCCESSFUL. [facility]
--- NOTE | 2016-12-28 09:46 | NUR ---
PT IN BED RESTING QUEITLY. BP 118/76. PULSE 83 BOUNDING AND REGUALR. DIGNA. LUNGS ARE SLIGHTLY DIMINISHED. NOTED DRY NON-PRODUCTIVE COUGH. BOWEL SOUNDS VERY HYPOACTIVE BUT PRESENT IN ALL QUADRANTS. SPO2 92% ON 2L O2 PER NC. TEMP 98.1 ORALLY. SKIN WARM AND DRY. C/O PAIN IN LLQ WHERE ABSESS IS LOCATED. PAIN RATED A 5/10. GAVE PAIN MEDICATIONS. [facility]
--- NOTE | 2016-12-28 11:42 | NUR ---
MILK OF MAG GIVEN PO AT 1058. D/T COMPLAINTS OF NO BM WITHIN THE PAST THREE DAYS. [facility]
--- NOTE | 2016-12-28 12:05 | NUR ---
PATIENT MEDICATED WT IVP DILAUDID FOR PAIN IN HER ABDOMEN RATED 8/10
--- NOTE | 2016-12-28 12:45 | NUR ---
ASSESS FOR HOME O2: SPO2 85% ON RA AT REST, HR 94, RR 24. SPO2 ON 2L NC 93%, HR 92, RR 20. RN NOTIFIED
[2016-12-28] MEDS ORDERED: NTS1 EACH TD (12:52)
--- NOTE | 2016-12-28 13:00 | NUR ---
PATIENT STATES MEDICATION EFFECTIVE
--- NOTE | 2016-12-28 13:06 | NUR ---
NOTIFIED DR CALLES THAT PATIENT QUALIFIES FOR HOME O2
[2016-12-28 14:22] VITALS: BP 118/76
--- NOTE | 2016-12-28 15:29 | NUR ---
PATIENT MEDICATED WITH IVP DILAUDID FOR PAIN IN HER ABDOMEN 09/23
[2016-12-28 16:00] VITALS: BP 114/75
--- NOTE | 2016-12-28 16:20 | NUR ---
PATIENT STATES MEDICATION EFFECTIVE
--- NOTE | 2016-12-28 17:13 | NUR ---
REMOVED IV WITH CATHETER INTACT AND BLEEDING CONTROLLED. PATIENT VERBALIZED UNDERSTANDING THAT SCRIPT WAS SENT TO PHARMACY. PATIENT IS AWAITING CAB THEN WILL BE TAKEN DOWN TO MAIN ENTRANCE FOR A TAXI RIDE HOME.
== END 2016-12-28 17:13 | disposition home or self-care (01) | DRG 394 ==
LOC: ED 17:12 → 5E 21:24
PROVIDERS: Hospitalist; Internal Medicine; Student in an Organized Health Care Education/Training Program; ADMIT Internal Medicine
DX: K43.6 Other and unspecified ventral hernia with obstruction, without gangrene (principal); E87.2 Acidosis; E11.65 Type 2 diabetes mellitus with hyperglycemia; I11.0 Hypertensive heart disease with heart failure; I50.9 Heart failure, unspecified; G60.0 Hereditary motor and sensory neuropathy; D72.810 Lymphocytopenia; S31.104A Unspecified open wound of abdominal wall, left lower quadrant without penetration into peritoneal cavity, initial encounter; Z99.81 Dependence on supplemental oxygen; E66.9 Obesity, unspecified; F17.210 Nicotine dependence, cigarettes, uncomplicated; R74.0 Nonspecific elevation of levels of transaminase and lactic acid dehydrogenase [LDH]; G40.909 Epilepsy, unspecified, not intractable, without status epilepticus; Z71.6 Tobacco abuse counseling; J42 Unspecified chronic bronchitis; Z98.51 Tubal ligation status; Z90.710 Acquired absence of both cervix and uterus; Z90.49 Acquired absence of other specified parts of digestive tract; Z82.49 Family history of ischemic heart disease and other diseases of the circulatory system; Z88.1 Allergy status to other antibiotic agents; Z88.6 Allergy status to analgesic agent; Z79.84 Long term (current) use of oral hypoglycemic drugs; Z79.899 Other long term (current) drug therapy; X58.XXXA Exposure to other specified factors, initial encounter; Y93.89 Activity, other specified; Y92.89 Other specified places as the place of occurrence of the external cause; Y99.8 Other external cause status; F32.9 Major depressive disorder, single episode, unspecified

== ENCOUNTER → 2016-12-30 | Outpatient (CLI) | payer OTHER ==
[~2016-12-30] MED LIST changes: +FLONASE ALLERG9.9 ML NAS; +LISINOPRIL10 M1 PO; +METFORMIN HCL1000 MG PO; +NAPROXEN500 M1 PO; +NTS1 EACH TD; +PROAIR HFA8.5 GM INH; +REMERON45 M1 PO; +SPIRIVA 5 CAPS18 MCG INH; +VENTOLIN 02.5 MG/3 M INH; +ZYRTEC10 MG PO
== END | disposition home or self-care (01) ==
LOC: WOUNDCARE 01:08
DX: S31.104D Unspecified open wound of abdominal wall, left lower quadrant without penetration into peritoneal cavity, subsequent encounter (principal); E66.01 Morbid (severe) obesity due to excess calories; K43.2 Incisional hernia without obstruction or gangrene; F32.9 Major depressive disorder, single episode, unspecified; I10 Essential (primary) hypertension; F41.9 Anxiety disorder, unspecified; E10.9 Type 1 diabetes mellitus without complications; F17.210 Nicotine dependence, cigarettes, uncomplicated; Z90.710 Acquired absence of both cervix and uterus; Z72.89 Other problems related to lifestyle; X58.XXXD Exposure to other specified factors, subsequent encounter

== ENCOUNTER 2017-01-10 22:08 | Inpatient (IN) | payer OTHER ==
[~2017-01-10] VITALS: Ht 167.6 cm; Wt 97.2 kg
--- NOTE | ~2017-01-10 | CON ---
[place], [place] REPORT OF CONSULTATION NAME: CHELLE VELASQUEZ UNIT #: [id number] ROOM: [place] [address] DOCTOR: BETTINA CURRIE BIRTHDATE: [birth year] DOS: 01/11/2017 CHIEF COMPLAINT: Accidental overdose. HISTORY OF PRESENT ILLNESS: The patient is a 57-year-old female who presented to the Emergency Room for evaluation. She was found unresponsive by her daughter. In history, her daughter reports finding her unresponsive on the couch at home around 2:30 p.m. with a bottle of newly filled Xanax pills only containing 2 pills, 160 were filled in the same day. PAST MEDICAL HISTORY: Anxiety, bipolar 1 disorder, COPD, oxygen dependence, diabetes type 2, diastolic CHF, hypertension, marijuana abuse, anemia, obesity, seizure disorder, tobacco abuse. ASSESSMENT: I met with the patient at length who stated that she is not suicidal and she did not overdose at any point during the day yesterday. She states that she was at home taking a nap on her couch and her oxygen came off. She stated she is always hard to arouse when she is sleeping. Nursing did confirm that she is hard to arouse when she is sleeping. She stated she only took 2 of her pills, some of the others may have spilled, but her daughter "overreacts all the time." She stated that she has a history of bipolar disorder as well as anxiety and depression, but she feels all symptoms are under control. She has been under the care of Dr. Malone for years now. She stated she has intermittently received counseling, but does not feel it is necessary at this time. She was alert and oriented in all three spheres. She appeared appropriate. She stated she would never kill herself "because she has 5 grandbabies to live for." She stated she had no intention of harming herself. She took her prescribed amount of medication and took a nap. She was slightly agitated with her daughter for "overreacting." The patient again appears alert and oriented and is denying suicidal ideation. DIAGNOSIS: 1. Bipolar disorder. 2. Anxiety. RECOMMENDATIONS: The patient resides with her youngest daughter and plans to return home with her. She states that she is happy. She feels all of her mental health symptoms are managed through her care from Dr. Malone. I did provide her with my card. She stated if she feels she needs outpatient counseling, she will follow up with me. Thank you for this consultation. [place], [place] REPORT OF CONSULTATION NAME: EVACHELLE A UNIT #: [id number] ROOM: [place] [address] DOCTOR: BETTINA CURRIE BIRTHDATE: [birth year] Bettina Hassan [facility] CM:CONSTR:REPORT OF CONSULTATION [id number] 01/11/17 1712 interface
--- NOTE | ~2017-01-10 | CON ---
[place], [place] REPORT OF CONSULTATION NAME: CHELLE VELASQUEZ UNIT #: [id number] ROOM: [place] [address] DOCTOR: YNES CAMERON MD,JAREK BIRTHDATE: [birth year] DOS: 01/12/2017 REASON FOR CONSULTATION: Consultation requested by the patient by the hospitalist service for assessment of the respiratory status with wheezing and others. This is a pulmonary consultation addendum note. The patient was independently seen today with myod-po-llsg encounter. History was confirmed. Physical exam was performed. All the available labs were reviewed. The assessment and management was personally completed for this patient as well. The note done by the certified medical aide, was approved. HISTORY OF PRESENT ILLNESS: This is a 57-year-old white female who has known past history of COPD. The patient has been admitted to the hospital. The patient was noted unresponsive on intentional drug overdose with Xanax. The patient was noted fully awake and alert several hours later and was seen in the Intensive Care Unit at this time. She has been noted symptoms of wheezing, which are described to be chronic with nonproductive cough, shortness breath with exertion. She denies symptoms of hemoptysis or any chest pain. The patient has not been seen in my office for a long period of time as well. She has been noted with abdominal abscess, which has been treated, anterior abdominal wall in the wound management clinic by the surgery staff. REVIEW OF SYSTEMS: The patient has been completed by the certified medical aide. Past history, family history, social history, surgical history all are already done by the certified medical aide for the patient, which was approved as well. CURRENT MEDICATIONS: Administered noted as use of vitamin D, Protonix, intravenous vancomycin, DuoNeb, Xanax 1 mg b.i.d., Lamictal, Lovenox for DVT prophylaxis 40 mg, IV Zosyn, and other p.r.n. medication administration. DRUG ALLERGIES: 1. NOTED ALLERGY TO THE CODEINE. 2. ASPIRIN. 3. CIPROFLOXACIN. PHYSICAL EXAMINATION: GENERAL: A 57-year-old female who has been noted currently sitting on the side of the bed completely awake, alert, oriented, without distress. Height of 5 feet 6 inches, weight of 214 pounds, BMI 34.6. VITAL SIGNS: Temperature of the patient recorded normal in the last 2 days since admission, respiratory rate 16-20, heart rate of 80-85, blood pressure 129/79--116/76. Pulse oxygen saturation of the patient recorded as 94% on 2 L nasal cannula; normal saturation was recorded for the patient on room air on admission. HEENT: Examination shows mkmq-zn-pcsiyvil obesity. Head was atraumatic. Eyes nonicterus. NECK: Supple. CARDIOVASCULAR: S1, S2 audible. LUNGS: Moderate decreased breath sounds, mild bilateral diffuse expiratory wheezing without any crackles. [place], [place] REPORT OF CONSULTATION NAME: CHELLE VELASQUEZ UNIT #: [id number] ROOM: [place] [address] DOCTOR: YNES CAMERON MD,JAREK BIRTHDATE: [birth year] ABDOMEN: Soft with incisional abdominal hernia for the patient was noted and infected area of the patient with area of cellulitis surrounding the current infection of anterior abdominal wall, midportion was also noted, covered with a Band-Aid. EXTREMITIES: Extremities do not show any edema. CENTRAL NERVOUS SYSTEM: Cranial nerves 2-12 intact. No focal deficit. MUSCULOSKELETAL: No deformities. SKIN: Otherwise showed no lesions or rash except in the anterior abdominal wall abnormality already described. LABORATORY DATA: CBC on 01/10/2017, WBC count 13.7, remaining CBC was normal. The urine drug screen noted positive for benzodiazepines, otherwise all tested illicit drugs were noted negative. CMP of the patient yesterday on admission, BUN 22, creatinine 1.10. Sodium 129. LFTs were noted abnormal. Hepatitis C. viral testing was noted positive for hep C today. CBC today for the patient noted mild anemia, otherwise normal remaining CBC. BMP was noted completely normal including normal sodium level. Wound culture for the patient was described as finding of heavy gram-negative and gram-positive cocci, isolation. The patient pending identification sensitivities. CT scan of the abdomen and pelvis, which were done without contrast yesterday for the patient; the findings were reported by the radiology services as a large bilobed abdominal ventral hernia containing large and small bowel loop for the patient with mesenteric fat. There was no evidence of obstruction noted radiologically. Superficial subcutaneous edema was described in the ventral hernia, suggesting continue subcutaneous defect as well as an infection and ulceration in that area secondary to infection. Chest x-ray, 1 view, which was done on 01/10/2017 of patient was reviewed and noted without any acute abnormalities. IMPRESSION: The patient with ongoing COPD with symptoms of wheezing. The patient had chronic bronchitis with chronic nicotine dependence. The patient has been smoking, currently half pack of cigarettes per day for this patient and was smoking up to 2 packs of cigarettes per day. She does take Spiriva inhaler at home as well as nebulized bronchodilator with albuterol sulfate with the MDI use as well p.r.n. administration. IMPRESSION: 1. The patient had been currently admitted to the hospital noted with unintentional drug overdose, secondary to the effect of Xanax, which seemed to be resolved with a normal mental status reported at this time. 2. Uncontrolled chronic obstructive pulmonary disease as well. 3. Abdominal wound infection. The patient had positive gram-negative infection for the patient currently pending further identification and sensitivity been treated with vancomycin and IV Zosyn. A localized area of cellulitis of the anterior abdominal wall will be considered as well. 4. Large ventral abdominal hernia, which require repair in future. 5. Chronic nicotine dependence. PLAN OF MANAGEMENT: The patient recommended about continuing use of Spiriva inhaler and short acting bronchodilators. Infection management by the surgery staff as well as medical management of the abdominal wound for surgery staff as [place], [place] REPORT OF CONSULTATION NAME: CHELLE VELASQUEZ UNIT #: [id number] ROOM: [place] [address] DOCTOR: YNES CAMERON MD,JAREK BIRTHDATE: [birth year] well and was deferred. She already has an appointment established in my office for further assessment. The patient has been considered possible surgical intervention to be done in future after the pulmonary clearance. At this time, the patient appears to have moderate risk, surgical complications with the current surgical intervention will be performed. In the meantime, continue the patient other supportive therapy, plan of management as in progress as well. Additional changes in the treatment will be recommended based on progression of her illness. JAREK QUICK MD CM:CONSTR:REPORT OF CONSULTATION 1247 01/12/17 [id number] interface
--- NOTE | ~2017-01-10 | CON ---
[place], [place] REPORT OF CONSULTATION NAME: CHELLE VELASQUEZ UNIT #: [id number] ROOM: [place] [address] DOCTOR: DUNG BAZZI DO BIRTHDATE: [birth year] DOS: 01/12/2017 This consult note is to be attached to the one dictated by Dr. Quick separately. REASON FOR CONSULTATION: Chronic lung disease and surgical risk assessment. CHIEF COMPLAINT: "____." HISTORY OF PRESENT ILLNESS: The patient is a 57-year-old female who was admitted to the ICU after being found unresponsive at home. Reports were that she took more of the Xanax than she normally does. She was monitored in ICU and became responsive shortly after admission. Today, she complains of no respiratory symptoms. She does have a history of COPD and she states that she uses 2 liters of oxygen at home continuously. She does continue to smoke and she states she has cut down in recent years, but she has smoked for a total of over 45 years of her life with many years been 2 pack a day smoking. She is denying any fevers, chills, cough, hemoptysis, vomiting, or diarrhea. She has a wound on her abdomen and she does follow with wound care. She sees Dr. De La Rosa and she states that the wound started a few weeks ago and has gotten worse and worse despite attempts to manage it. She does have insulin-dependent diabetes. She is not extremely compliant with her treatment regimens. PAST MEDICAL HISTORY: COPD (oxygen dependent), anxiety, bipolar disorder, Rlltjzs-Rpjfh-Wdypx disease, depression, insulin-dependent diabetes mellitus type 2, diastolic CHF, hypertension, marijuana abuse, normocytic anemia, obesity, seizure disorder, transaminitis, ventral hernia and continued tobacco abuse. PAST SURGICAL HISTORY: Positive for tubal ligation, hammertoe and partial bowel resection as well as hernia repair and hysterectomy. SOCIAL HISTORY: She is a long-term smoker, currently smoking less than a pack a day. Does not drink, does not report using drugs. FAMILY HISTORY: Mother is from an unknown cause after the age of 60. Father is from a cardiac complication after myocardial infarction after the age of 60. ALLERGIES: CODEINE, ASPIRIN and CIPROFLOXACIN. HOME MEDICATIONS: That are reported ProAir, Xanax, ____, Zyrtec, cyclobenzaprine, doxepin, Cymbalta, Flonase, gabapentin, [place], Lamictal, lisinopril, metformin, Remeron, naproxen, Januvia and Spiriva. REVIEW OF SYSTEMS: GENERAL: Denies fevers or chills. HEENT: Denies vision change, blurry vision, nose congestion. CARDIOVASCULAR: Denies chest pain, palpitations, dyspnea on exertion. RESPIRATORY: Denies any new onset cough or hemoptysis. Denies any sputum production. Does report chronic shortness of breath with occasional wheezing. [place], [place] REPORT OF CONSULTATION NAME: CHELLE VELASQUEZ UNIT #: [id number] ROOM: [place] [address] DOCTOR: DUNG BAZZI DO BIRTHDATE: [birth year] ABDOMINAL: She denies any vomiting, diarrhea, but she does have some abdominal pain in the region where the wound is. GENITOURINARY: Denies dysuria, hematuria. NEUROLOGIC: Denies lightheadedness, dizziness, confusion. PSYCHIATRIC: Reports depression and anxiety. ENDOCRINE: Denies polydipsia. Denies heat intolerance. SKIN: Reports lesions and ulcers. PHYSICAL EXAMINATION: VITAL SIGNS: Temperature 97.7, pulse 83, respirations 20, BP 116/74, pulse 94 and oxygen flow rate 94 at 2 liters nasal cannula. GENERAL APPEARANCE: Awake, alert, oriented, in no acute distress. HEAD: Normocephalic, atraumatic. EYES: PERRL. No lesions or ulcerations. ENT: No lesions, scars, masses. Nares patent. Oropharynx clear. Oral mucosa moist. NECK: Without lesions or masses or ulcerations. Trachea is midline. HEART: Regular rate and rhythm. No gallop. No murmur. Carotids are free of bruits. LUNGS: Diminished breath sounds, but no crackles or extensive wheezes. ABDOMEN: Soft, positive bowel sounds, nontender in areas excluding the erythema. There is an approximately 15 cm x 12 cm area of redness and protrusion in her lower abdomen where this wound was described earlier is present. EXTREMITIES: No clubbing, cyanosis or edema. NEUROLOGIC: No acute or focal neuro deficits. Sensation grossly intact. PSYCHOLOGICAL: Poor historian. SKIN: Warm and dry. Large area of erythema as described above in the lower abdomen. The center of the area is ulcerated and there is purulent discharge coming from it. LABORATORY DATA: Chemistries: Most recent sodium is 139, potassium 4.4, chloride 105, carbon dioxide 26, BUN 11, creatinine 0.66, glucose 112, calcium 8.4, vitamin D 22.1, vitamin B12 of 692, folate 12.3 and TSH 1.47. Microbiology: Blood culture is pending. IMAGING: Chest x-ray did not show any acute cardiopulmonary disease per radiologist's report. CT of the abdomen and pelvis was done and did show a large palpable abdominal hernia containing small and large bowel loops with mesenteric fat, also there was some subcutaneous edema overlying the ventral abdominal hernia, suggesting cutaneous and subcutaneous defect at the anterior inferior margin of the left ____ midline ventral hernia, suspicious for soft tissue ulceration, possible infection as detailed above. This was directly from CT report. See the physical exam and description above for more details and see Dr. De La Rosa's plan for management plans at this time in terms of ulcer. Ultrasound done of the liver and that showed hepatomegaly with diffuse hepatic steatosis, gallbladder sludge with a dilated common bile duct without cholelithiasis or wall thickening. MRCP was suggested. MRCP was done earlier [place], [place] REPORT OF CONSULTATION NAME: CHELLE VELASQUEZ UNIT #: [id number] ROOM: [place] [address] DOCTOR: DUNG BAZZI DO BIRTHDATE: [birth year] today and it showed a distended gallbladder and ductal dilatation without evidence of an obstructing mass. There was "a slight irregularity" of the distal common duct and a stone could not be excluded. The gallbladder, biliary ductal dilation and elevated LFTs suggest that functionally there is some degree of obstruction and the ERCP should be considered. ASSESSMENT: 1. Drug overdose. 2. Ventral hernia with overlying cellulitis of abdominal wall. 3. Skin ulceration. 4. Transaminitis with possible obstruction in the hepatobiliary system leading to the transaminitis. 5. Chronic obstructive pulmonary disease without exacerbation. 6. Tobacco abuse, chronic. PLAN: The patient was counseled on the importance of cessation of tobacco. She stated understanding. She currently is stable from a pulmonary perspective, but in terms of surgical management possible consideration for waiting on in improvement in the abdominal wall cellulitis prior to surgical intervention. However, further evaluation could be arranged on an outpatient basis. The patient is planned to be discharged today. She is to follow up with GI and with her PCP as well as Dr. Quick later on. She will very likely need an ERCP done as per the radiology report. She also will need a GI followup for hep C infection. Please see Dr. Quick's note for further details. DUNG BAZZI, DO JAREK QUICK MD CM:CONSTR:REPORT OF CONSULTATION 1901 01/13/17 0128 interface
--- NOTE | 2017-01-10 22:16 | NUR ---
WOUND ON RIGHT PANIS IS UNSTAGEABLE. REDNESS IS 25CMX 15CM WITH A 4CMX3 CM CENTER CIRCULAR WOUND WITH YELLOW ESCHAR TUNNELING FROM 11 O'CLOCK TO 3O'CLOCK RANGING FROM 0.5CM TO 1CM IN DEPTH IF WOUND WERE CLOCK. 3O'CLOCK BEING THE DEEPEST
--- NOTE | 2017-01-10 22:25 | NUR ---
FORREST FROM POISON CONTROL CALLED. DR WARD INFORMED OF RECOMMNEDATIONS.
[2017-01-10 22:31] LABS: BILIRUBIN NEGATIVE (NEGATIVE); BLOOD NEGATIVE (NEGATIVE); CLARITY SL CLOUDY (CLEAR); COLOR YELLOW (YELLOW); GLUCOSE NEGATIVE (NEGATIVE); KETONE NEGATIVE (NEGATIVE); LEUKO ESTERASE 3+ (NEGATIVE); NITRITE POSITIVE (NEGATIVE); PH 5.5 (5.0-9.0); SPECIFIC GRAVITY <= 1.005 (1.005-1.030); UROBILINOGEN 0.2 E.U./dl (0.2-1.0)
[2017-01-10 22:42] LABS: BACTERIA 4+; WBC TNTC wbc/hpf (0-5)
[2017-01-10 22:45] LABS: URINE AMPHETAMINES < 1000 (1000ng/ml); URINE CANNABINOIDS (THC) < 50 (50ng/ml); URINE COCAINE < 300 (300ng/ml); URINE METHADONE < 300 (300ng/ml); URINE OPIATES < 300 (300ng/ml)
[2017-01-10 22:46] VITALS: BP 131/86
[2017-01-10 22:50] LABS: BASO # 0.1 10*3/uL (0.0-0.1); BASO % 0.7 % (0.0-1.0); EOS # 0.3 10*3/uL (0.0-0.4); EOS % 2.1 % (1.0-4.0); HEMATOCRIT 40.9 % (37.0-47.0); HEMOGLOBIN 13.7 g/dl (12.0-16.0); LYMPH # 1.6 10*3/uL (1.3-4.4); LYMPH % 11.6 % (27.0-41.0); MEAN CELL VOLUME 94.5 fl (81.0-99.0); MEAN CORPUSCULAR HGB 31.6 pg (27.0-31.0); MEAN CORPUSCULAR HGB CONC 33.5 g/dl (33.0-37.0); MEAN PLATELET VOLUME 8.9 fl (9.6-12.3); MONO % 7.6 % (3.0-9.0); NEUT # 10.5 10*3/uL (2.3-7.9); NEUT % 77.3 % (47.0-73.0); PLATELET COUNT AUTOMATED 222 10*3/uL (130-400); RED BLOOD COUNT 4.33 10*6/uL (4.10-5.10); RED CELL DISTRI WIDTH 12.7 % (0-14.5); WHITE BLOOD COUNT 13.7 10*3/uL (4.8-10.8)
[2017-01-10 22:58] LABS: URINE BENZODIAZEPINES > 200 (200ng/ml)
[2017-01-10 23:07] LABS: ALBUMIN 3.2 gm/dl (3.1-4.5); BUN 22 mg/dl (7-24); CHLORIDE 94 mmol/L (98-107); POTASSIUM 4.3 mmol/L (3.5-5.1); SGPT/ALT 102 U/L (12-78); SODIUM 129 mmol/L (136-145)
[2017-01-10 23:09] VITALS: BP 116/76
[2017-01-10 23:11] LABS: ACETAMINOPHEN (TYLENOL) < 2.0 ug/ml (10-30); ALKALINE PHOSPHATASE 146 U/L (45-117); ETHYL ALCOHOL < 3.0 mg/dl (<3); SGOT/AST 123 IU/L (3-35); TOTAL PROTEIN 8.2 gm/dL (6.4-8.2)
[2017-01-10 23:13] LABS: URINE BARBITURATES < 200 (200ng/ml); URINE PHENCYCLIDINE < 25 (25ng/ml)
[2017-01-11] VITALS (7 sets, daily range): BP systolic 102–132; BP diastolic 53–82
--- NOTE | 2017-01-11 00:15 | NUR ---
PATIENT HAS A LARGE WOUND LEFT LOWER QUAD OF ABDOMEN. THE AREA IS 25CM X 15CM X 1CM AND IS RED IN COLOR. WITHIN THIS LARGE AREA IS NECROTIC WOUND. THIS WOUND IS 4CM X 3CM X 1CM. NECROTIC TISSUE IS YELLOW, BLACK AND BROWN. PURULENT DRAINAGE NOTED. THERE IS UNDERMINING OF 0.5 CM 11 O'CLOCK AND 12 O'CLOCK. 1CM UNDERMINING NOTED AT 2 O'CLOCK AND 3 O'CLOCK. WOUND CULTURE OBTAINED. WOUND WAS CLEANSED WITH NSS, THERAHONEY APPIED AND OPTIFOAM APPLIED. THE WOUND IS WITHIN A LARGE ABDOMINAL HERNIA SITE. PATIENT C/O 07/24 PAIN TO THE SITE. DR. SABINA NAVARRETE WAS NOTIFIED OF WOUND UPON ADMISSION TO ICU. PICTURES WERE TAKEN FOLLOWING CONSENT FROM PATIENT.
--- NOTE | 2017-01-11 00:15 | NUR ---
A 57 YEAR OLD FEMALE admitted to ICCU, under the services of DAWIT Koenig DO with a diagnosis of NONACCIDENTAL DRUG OVERDOSE. Chief complaint is FOUND UNRESPONSIVE AT HOME. Patient arrived via stretcher from ER. Monitor applied. Initial assessment completed. Vital signs taken and recorded. DAWIT KOENIG DO notified of admission to the unit. Orders received. See assessment for past medical history, medications and allergies. Patient and/or family oriented to unit. [facility] ICCU visitation policy reviewed. Clothing/patient valuable form completed. RENE BENITEZ
--- NOTE | 2017-01-11 00:38 | NUR ---
PATIENT STATES SHE DOES NOT KNOW HOME MEDICATIONS. THEY WILL HAVE TO BE VERIFIED BY [facility].
--- NOTE | 2017-01-11 03:06 | NUR ---
DR. NOE NOTIFIED THAT PATIENT WAS PINK SLIPPED FROM ER. PATIENTS SUICIDE RISK SCORE WAS 18 UPON ADMISSION.
--- NOTE | 2017-01-11 03:45 | NUR ---
C/O 7/10 PAIN TO HER LEFT LOWER QUAD OF ABDOMEN. DESCRIBES THE PAIN BURNING. MEDICATED WITH OXY IR ORDERED AND PER PATIENT REQUEST.
--- NOTE | 2017-01-11 04:45 | NUR ---
PATIENT ASLEEP. NO SIGNS OF PAIN. OXY IR EFFECTIVE.
[2017-01-11 04:50] LABS: BASO # 0.1 10*3/uL (0.0-0.1); BASO % 0.8 % (0.0-1.0); EOS # 0.3 10*3/uL (0.0-0.4); HEMATOCRIT 38.6 % (37.0-47.0); LYMPH # 2.1 10*3/uL (1.3-4.4); LYMPH % 21.3 % (27.0-41.0); MEAN CELL VOLUME 95.5 fl (81.0-99.0); MEAN CORPUSCULAR HGB 32.2 pg (27.0-31.0); MEAN CORPUSCULAR HGB CONC 33.7 g/dl (33.0-37.0); MEAN PLATELET VOLUME 8.8 fl (9.6-12.3); MONO # 0.8 10*3/uL (0.1-1.0); MONO % 8.2 % (3.0-9.0); NEUT # 6.4 10*3/uL (2.3-7.9); NEUT % 66.2 % (47.0-73.0); PLATELET COUNT AUTOMATED 193 10*3/uL (130-400); RED BLOOD COUNT 4.04 10*6/uL (4.10-5.10); RED CELL DISTRI WIDTH 12.6 % (0-14.5); WHITE BLOOD COUNT 9.6 10*3/uL (4.8-10.8)
[2017-01-11 05:06] LABS: ACT PARTIAL THROMBO TIME 29.3 SECONDS (20.8-31.5)
[2017-01-11 05:07] LABS: ALBUMIN 2.7 gm/dl (3.1-4.5); ALKALINE PHOSPHATASE 133 U/L (45-117); BUN 19 mg/dl (7-24); CHLORIDE 102 mmol/L (98-107); CPK 99 U/L (26-192); CREATININE 0.89 mg/dL (0.55-1.02); PHOSPHOROUS 3.9 mg/dL (2.5-4.9); POTASSIUM 4.3 mmol/L (3.5-5.1); SGOT/AST 123 IU/L (3-35); SODIUM 134 mmol/L (136-145); TOTAL PROTEIN 7.1 gm/dL (6.4-8.2)
[2017-01-11 05:11] LABS: SGPT/ALT 96 U/L (12-78)
--- NOTE | 2017-01-11 06:54 | NUR ---
MESSAGE LEFT FOR JN CHUN REGARDING CONSULT.
--- NOTE | 2017-01-11 06:56 | NUR ---
MESSAGE LEFT AT SAMANTHA HINOJOSA'S ANSWERING SERVICE REGARDING CONSULT. AWAITING RETURN CALL.
--- NOTE | 2017-01-11 07:10 | NUR ---
DR. AMES NOIFIED OF CONSULT.
[2017-01-11 07:52] LABS: VITAMIN D, 25-HYDROXY 22.1 ng/mL (30-100)
--- NOTE | 2017-01-11 08:00 | NUR ---
PT ALERT, AWAKE AND ORIENTED X3. PATIENT DENIES SUICIDAL IDEATION. SHERIF GILLILAND RN
--- NOTE | 2017-01-11 09:16 | NUR ---
met with client to assess for suicidal ideation, and risk, this client reports to me that she took only 2 xanax and then she went to sleep , she said that her kids came and thought she had taken her whole bottle as it was empty. she said her door was open and she thinks that someone stole them, she denies to me that she is or was suicidal, this client is well known to me for years and she has not been suicidal, she follows at [facility] and would continue there, she is not a risk and could be dc to follow up outpatient when she is medically stable.
--- NOTE | 2017-01-11 11:30 | NUR ---
PT STATES ROXICODONE EFFECTIVE FOR ABDOMINAL PAIN. WILL MONITOR. SHERIF GILLILAND RN
--- NOTE | 2017-01-11 15:00 | NUR ---
BG CURRIE IN TO SEE PATIENT FOR DR. HINOJOSA. STATES PATIENT HAS BEEN EVALUATED AND DENIES SUICIDAL IDEATION, STATES PATIENT MAY BE DISCHARGED HOME ONCE CLEARED MEDICALLY. SHERIF GILLILAND RN
--- NOTE | 2017-01-11 18:05 | NUR ---
DR. QUICK NOTIFIED OF CONSULT. WILL SEE IN AM.
--- NOTE | 2017-01-11 19:12 | NUR ---
24 HOUR CHART CHECK COMPLETED.
--- NOTE | 2017-01-11 19:36 | NUR ---
PT TALKING TO HER DAUGHTER ON CORDLESS PHONE. PT IS WITHOUT COMPLAINTS. DENIES SUICIDAL IDEATIONS. IV SITE ASYMPTOMATIC WITH NS INFUSING AT 100CC/HR ORDERED. VSS. MRI QUESTIONNAIRE WAS COMPLETED FOR MRCP IN AM. I THEN SPOKE TO HER DAUGHTER PER PT REQUEST.... INFORMED HER OF MRCP IN AM.
--- NOTE | 2017-01-11 21:13 | NUR ---
DR Ernestina NAVARRETE NOTIFIED OF PT WITH URINARY FREQUENCY.... SHE IS ORDERING PYRIDIUM.
--- NOTE | 2017-01-11 22:01 | NUR ---
ROXICODONE FOR CHRONIC PAIN "ALL OVER" AT 2144.
--- NOTE | 2017-01-11 22:35 | NUR ---
SPOKE WITH DR NOE RE: PT REQUEST FOR HER REMERON AND DOXEPINE SHE "CANNOT SLEEP".
[2017-01-12] VITALS: BP 120/74
--- NOTE | 2017-01-12 03:45 | NUR ---
MEDICATED WITH OXY IR PER PRN ORDER FOR C/O PAIN.
[2017-01-12 04:00] VITALS: BP 104/69
[2017-01-12 04:37] LABS: BASO # 0.1 10*3/uL (0.0-0.1); EOS # 0.3 10*3/uL (0.0-0.4); EOS % 3.3 % (1.0-4.0); HEMATOCRIT 35.5 % (37.0-47.0); HEMOGLOBIN 11.8 g/dl (12.0-16.0); LYMPH # 1.9 10*3/uL (1.3-4.4); LYMPH % 22.6 % (27.0-41.0); MEAN CELL VOLUME 97.3 fl (81.0-99.0); MEAN CORPUSCULAR HGB 32.3 pg (27.0-31.0); MEAN CORPUSCULAR HGB CONC 33.2 g/dl (33.0-37.0); MONO # 0.8 10*3/uL (0.1-1.0); MONO % 10.2 % (3.0-9.0); NEUT # 5.1 10*3/uL (2.3-7.9); NEUT % 62.4 % (47.0-73.0); PLATELET COUNT AUTOMATED 179 10*3/uL (130-400); RED BLOOD COUNT 3.65 10*6/uL (4.10-5.10); RED CELL DISTRI WIDTH 12.5 % (0-14.5); WHITE BLOOD COUNT 8.2 10*3/uL (4.8-10.8)
[2017-01-12 04:49] LABS: BUN 11 mg/dl (7-24); CHLORIDE 105 mmol/L (98-107); CREATININE 0.66 mg/dL (0.55-1.02); POTASSIUM 4.4 mmol/L (3.5-5.1); SODIUM 139 mmol/L (136-145)
--- NOTE | 2017-01-12 06:00 | NUR ---
OXY IR EFFECTIVE FOR PAIN.
--- NOTE | 2017-01-12 07:49 | NUR ---
PT TO MRI VIA . DR CALLES IN TO SEE PT EARLIER.
[2017-01-12 08:00] VITALS: BP 129/79
[2017-01-12 08:15] LABS: HEPATITIS B SURFACE AG Negative (Negative)
--- NOTE | 2017-01-12 09:00 | NUR ---
PT TO MRCP VIA WC.
--- NOTE | 2017-01-12 09:00 | NUR ---
[facility].
--- NOTE | 2017-01-12 09:15 | NUR ---
UPDATED DR AMES ON PT'S PLAN OF CARE. HE STATED PT COULD EAT.
--- NOTE | 2017-01-12 09:20 | NUR ---
DR QUICK IN TO SEE PT.
[2017-01-12 09:41] LABS: HEPATITIS C VIRUS ANTIBODY >11.0 s/co (0.0-0.9)
--- NOTE | 2017-01-12 09:50 | NUR ---
DR QUICK NOTIFIED OF + HEP C ANTIBODY.
--- NOTE | 2017-01-12 10:30 | NUR ---
PAIN 8/10 TO LLQ ABDOMINAL AREA.
--- NOTE | 2017-01-12 10:35 | NUR ---
DR CERDA IN TO SEE PT. UPDATED PT ON MRCP RESULTS AND PLAN OF CARE.
[2017-01-12] MEDS ORDERED: VITAMIN D31000 UNI1 PO (10:43)
[2017-01-12] MEDS ORDERED: OXYCODONE HCL5 MG PO (10:43)
--- NOTE | 2017-01-12 11:00 | NUR ---
DISCHARGE PICTURE TAKEN OF WOUND ON ABD. PT STATES RELIEF OF ABD. PAIN WITH EARLIER PRN MED.
[2017-01-12] MEDS ORDERED: NICODERM CQ1 EAC2 T (11:01)
--- NOTE | 2017-01-12 11:22 | NUR ---
Discharge instructions reviewed with patient. Patient receptive and verbalizes understanding. Follow-up care arranged. Written instructions given to patient. Pt refused to wait for Dr. De La Rosa. Pt states her daughter is on her way to pick her up and she has no other ride. I will notify Dr. De La Rosa. TELMA HERNÁNDEZ
[2017-01-12] MEDS ORDERED: CLINDAMYCIN HC300 MG PO (14:18)
== END 2017-01-12 11:22 | disposition home or self-care (01) | DRG 871 ==
LOC: ED 22:08 → EDHOLD 23:43 → ICCU 23:43
PROVIDERS: Emergency Medicine Emergency Medical Services; Internal Medicine; ADMIT Emergency Medicine
DX: A41.9 Sepsis, unspecified organism (principal); N17.0 Acute kidney failure with tubular necrosis; G93.41 Metabolic encephalopathy; E43 Unspecified severe protein-calorie malnutrition; K83.8 Other specified diseases of biliary tract; I50.32 Chronic diastolic (congestive) heart failure; L03.311 Cellulitis of abdominal wall; N39.0 Urinary tract infection, site not specified; E87.1 Hypo-osmolality and hyponatremia; F31.30 Bipolar disorder, current episode depressed, mild or moderate severity, unspecified; I11.0 Hypertensive heart disease with heart failure; R16.0 Hepatomegaly, not elsewhere classified; T42.4X4A Poisoning by benzodiazepines, undetermined, initial encounter; K43.9 Ventral hernia without obstruction or gangrene; L98.491 Non-pressure chronic ulcer of skin of other sites limited to breakdown of skin; J44.9 Chronic obstructive pulmonary disease, unspecified; G40.909 Epilepsy, unspecified, not intractable, without status epilepticus; E66.9 Obesity, unspecified; E11.65 Type 2 diabetes mellitus with hyperglycemia; F41.9 Anxiety disorder, unspecified; F12.10 Cannabis abuse, uncomplicated; R74.0 Nonspecific elevation of levels of transaminase and lactic acid dehydrogenase [LDH]; E87.8 Other disorders of electrolyte and fluid balance, not elsewhere classified; G60.0 Hereditary motor and sensory neuropathy; E55.9 Vitamin D deficiency, unspecified; K76.0 Fatty (change of) liver, not elsewhere classified; F17.210 Nicotine dependence, cigarettes, uncomplicated; B19.20 Unspecified viral hepatitis C without hepatic coma; Z71.6 Tobacco abuse counseling; Z98.51 Tubal ligation status; Z90.710 Acquired absence of both cervix and uterus; Z82.49 Family history of ischemic heart disease and other diseases of the circulatory system; Z88.1 Allergy status to other antibiotic agents; Z88.8 Allergy status to other drugs, medicaments and biological substances; Z99.81 Dependence on supplemental oxygen; Z68.34 Body mass index [BMI] 34.0-34.9, adult; Y92.098 Other place in other non-institutional residence as the place of occurrence of the external cause; Z79.4 Long term (current) use of insulin

== ENCOUNTER → 2017-01-13 | Outpatient (CLI) | payer OTHER ==
[~2017-01-13] MED LIST changes: +NICODERM CQ1 EAC2 T; +OXYCODONE HCL5 MG PO; +VITAMIN D31000 UNI1 PO
== END | disposition home or self-care (01) ==
LOC: WOUNDCARE 01:54
DX: S31.104D Unspecified open wound of abdominal wall, left lower quadrant without penetration into peritoneal cavity, subsequent encounter (principal); E66.01 Morbid (severe) obesity due to excess calories; E11.628 Type 2 diabetes mellitus with other skin complications; F32.9 Major depressive disorder, single episode, unspecified; F41.9 Anxiety disorder, unspecified; F17.210 Nicotine dependence, cigarettes, uncomplicated; Z90.710 Acquired absence of both cervix and uterus; Z68.33 Body mass index [BMI] 33.0-33.9, adult; Z72.89 Other problems related to lifestyle; X58.XXXD Exposure to other specified factors, subsequent encounter

== ENCOUNTER → 2017-01-20 | Outpatient (CLI) | payer OTHER ==
[~2017-01-20] MED LIST changes: +NEURONTIN300 MG PO
== END | disposition home or self-care (01) ==
LOC: WOUNDCARE 03:22
DX: E10.622 Type 1 diabetes mellitus with other skin ulcer (principal); L98.491 Non-pressure chronic ulcer of skin of other sites limited to breakdown of skin; E66.01 Morbid (severe) obesity due to excess calories; F32.9 Major depressive disorder, single episode, unspecified; I10 Essential (primary) hypertension; F41.8 Other specified anxiety disorders; F17.210 Nicotine dependence, cigarettes, uncomplicated; Z90.710 Acquired absence of both cervix and uterus; Z68.33 Body mass index [BMI] 33.0-33.9, adult; Z72.89 Other problems related to lifestyle

== ENCOUNTER → 2017-01-23 | Emergency (ER) | payer OTHER ==
[~2017-01-23] VITALS: Ht 167.6 cm; Wt 96.6 kg
[2017-01-23 14:44] VITALS: BP 140/70
== END ==
LOC: ED 14:39
DX: R10.32 Left lower quadrant pain (principal); G89.29 Other chronic pain; L98.492 Non-pressure chronic ulcer of skin of other sites with fat layer exposed; F41.9 Anxiety disorder, unspecified; J44.9 Chronic obstructive pulmonary disease, unspecified; E11.9 Type 2 diabetes mellitus without complications; F32.9 Major depressive disorder, single episode, unspecified; I11.0 Hypertensive heart disease with heart failure; I50.9 Heart failure, unspecified; E78.00 Pure hypercholesterolemia, unspecified; Z68.34 Body mass index [BMI] 34.0-34.9, adult; F12.10 Cannabis abuse, uncomplicated; G40.909 Epilepsy, unspecified, not intractable, without status epilepticus; F17.200 Nicotine dependence, unspecified, uncomplicated; E87.1 Hypo-osmolality and hyponatremia; Z88.6 Allergy status to analgesic agent; Z88.1 Allergy status to other antibiotic agents; Z79.84 Long term (current) use of oral hypoglycemic drugs; Z79.899 Other long term (current) drug therapy; Z98.51 Tubal ligation status; Z90.710 Acquired absence of both cervix and uterus

== ENCOUNTER → 2017-01-27 | Outpatient (CLI) | payer OTHER | END | disposition home or self-care (01) | LOC: WOUNDCARE 00:13 | DX: S31.104D Unspecified open wound of abdominal wall, left lower quadrant without penetration into peritoneal cavity, subsequent encounter (principal); E66.01 Morbid (severe) obesity due to excess calories; K43.2 Incisional hernia without obstruction or gangrene; E10.9 Type 1 diabetes mellitus without complications; F32.9 Major depressive disorder, single episode, unspecified; F41.8 Other specified anxiety disorders; I10 Essential (primary) hypertension; F17.210 Nicotine dependence, cigarettes, uncomplicated; Z68.33 Body mass index [BMI] 33.0-33.9, adult; Z90.710 Acquired absence of both cervix and uterus; Z72.89 Other problems related to lifestyle; X58.XXXD Exposure to other specified factors, subsequent encounter ==

== ENCOUNTER 2017-02-14 11:10 | Emergency (ER) | payer OTHER ==
[~2017-02-14] VITALS: Wt 95.7 kg
[2017-02-14 11:25] VITALS: BP 123/84
[2017-02-14 13:10] LABS: BASO # 0.1 10*3/uL (0.0-0.1); BASO % 1.1 % (0.0-1.0); EOS # 0.5 10*3/uL (0.0-0.4); EOS % 4.4 % (1.0-4.0); HEMATOCRIT 41.2 % (37.0-47.0); HEMOGLOBIN 13.9 g/dl (12.0-16.0); LYMPH # 2.6 10*3/uL (1.3-4.4); LYMPH % 23.5 % (27.0-41.0); MEAN CELL VOLUME 94.3 fl (81.0-99.0); MEAN CORPUSCULAR HGB 31.8 pg (27.0-31.0); MEAN CORPUSCULAR HGB CONC 33.7 g/dl (33.0-37.0); MEAN PLATELET VOLUME 10.6 fl (9.6-12.3); MONO # 0.9 10*3/uL (0.1-1.0); MONO % 8.5 % (3.0-9.0); NEUT # 6.8 10*3/uL (2.3-7.9); PLATELET COUNT AUTOMATED 208 10*3/uL (130-400); RED BLOOD COUNT 4.37 10*6/uL (4.10-5.10); RED CELL DISTRI WIDTH 12.6 % (0-14.5); WHITE BLOOD COUNT 10.9 10*3/uL (4.8-10.8)
[2017-02-14] MEDS ORDERED: CEPHALEXIN500 M1 PO (13:28)
[2017-02-14 13:36] LABS: ALBUMIN 3.3 gm/dl (3.1-4.5); BUN 13 mg/dl (7-24); CHLORIDE 102 mmol/L (98-107); CREATININE 0.88 mg/dL (0.55-1.02); POTASSIUM 5.3 mmol/L (3.5-5.1); SGOT/AST 217 IU/L (3-35); SGPT/ALT 135 U/L (12-78); SODIUM 135 mmol/L (136-145); TOTAL PROTEIN 8.2 gm/dL (6.4-8.2)
[2017-02-14 13:37] LABS: ALKALINE PHOSPHATASE 127 U/L (45-117)
== END 2017-02-14 13:46 | disposition home or self-care (01) ==
LOC: ED 11:10
PROVIDERS: Nurse Practitioner Family
DX: L02.211 Cutaneous abscess of abdominal wall (principal); G89.29 Other chronic pain; F17.200 Nicotine dependence, unspecified, uncomplicated; Z98.51 Tubal ligation status; Z90.710 Acquired absence of both cervix and uterus; Z98.890 Other specified postprocedural states; Z79.899 Other long term (current) drug therapy; Z88.6 Allergy status to analgesic agent; Z88.1 Allergy status to other antibiotic agents

== ENCOUNTER → 2017-02-22 | Outpatient (CLI) | payer OTHER | END | disposition home or self-care (01) | LOC: WOUNDCARE 01:08 | DX: S31.104D Unspecified open wound of abdominal wall, left lower quadrant without penetration into peritoneal cavity, subsequent encounter (principal); E66.01 Morbid (severe) obesity due to excess calories; K43.2 Incisional hernia without obstruction or gangrene; F32.9 Major depressive disorder, single episode, unspecified; I10 Essential (primary) hypertension; F41.9 Anxiety disorder, unspecified; F41.8 Other specified anxiety disorders; F17.210 Nicotine dependence, cigarettes, uncomplicated; Z68.33 Body mass index [BMI] 33.0-33.9, adult; Z90.710 Acquired absence of both cervix and uterus; Z72.89 Other problems related to lifestyle; X58.XXXD Exposure to other specified factors, subsequent encounter ==

== ENCOUNTER → 2017-03-08 | Outpatient (CLI) | payer OTHER | END | disposition home or self-care (01) | LOC: WOUNDCARE 03:59 | DX: E10.622 Type 1 diabetes mellitus with other skin ulcer (principal); L98.491 Non-pressure chronic ulcer of skin of other sites limited to breakdown of skin; L02.211 Cutaneous abscess of abdominal wall; K43.2 Incisional hernia without obstruction or gangrene; I10 Essential (primary) hypertension; E66.01 Morbid (severe) obesity due to excess calories; F32.9 Major depressive disorder, single episode, unspecified; F41.9 Anxiety disorder, unspecified; F17.200 Nicotine dependence, unspecified, uncomplicated; Z90.710 Acquired absence of both cervix and uterus; Z68.33 Body mass index [BMI] 33.0-33.9, adult ==

== ENCOUNTER → 2017-03-24 | Outpatient (CLI) | payer OTHER | END | disposition home or self-care (01) | LOC: WOUNDCARE 02:03 | DX: E10.622 Type 1 diabetes mellitus with other skin ulcer (principal); L98.491 Non-pressure chronic ulcer of skin of other sites limited to breakdown of skin; K43.2 Incisional hernia without obstruction or gangrene; E66.01 Morbid (severe) obesity due to excess calories; I10 Essential (primary) hypertension; F41.9 Anxiety disorder, unspecified; F32.9 Major depressive disorder, single episode, unspecified; F17.200 Nicotine dependence, unspecified, uncomplicated; Z90.710 Acquired absence of both cervix and uterus; Z72.89 Other problems related to lifestyle ==

== ENCOUNTER → 2017-04-19 | Outpatient (CLI) | payer OTHER | END | disposition home or self-care (01) | LOC: WOUNDCARE 01:37 | DX: E10.622 Type 1 diabetes mellitus with other skin ulcer (principal); L98.491 Non-pressure chronic ulcer of skin of other sites limited to breakdown of skin; K43.2 Incisional hernia without obstruction or gangrene; I10 Essential (primary) hypertension; E66.01 Morbid (severe) obesity due to excess calories; F32.9 Major depressive disorder, single episode, unspecified; F17.200 Nicotine dependence, unspecified, uncomplicated; Z68.33 Body mass index [BMI] 33.0-33.9, adult; Z90.710 Acquired absence of both cervix and uterus ==

== ENCOUNTER 2017-10-26 18:11 | Emergency (ER) | payer OTHER ==
[~2017-10-26] VITALS: Wt 88.5 kg
[2017-10-26 18:12] VITALS: BP 142/82
[2017-10-26] MEDS ORDERED: DELTASONE20 M1 PO (18:38)
[2017-10-26] MEDS ORDERED: ULTRAM50 MG PO (18:38)
== END 2017-10-26 19:12 | disposition home or self-care (01) ==
LOC: ED 18:11
DX: M54.32 Sciatica, left side (principal); J34.89 Other specified disorders of nose and nasal sinuses; Z88.6 Allergy status to analgesic agent; Z88.1 Allergy status to other antibiotic agents; Z79.84 Long term (current) use of oral hypoglycemic drugs; Z79.899 Other long term (current) drug therapy; Z90.710 Acquired absence of both cervix and uterus; Z98.51 Tubal ligation status

== ENCOUNTER 2018-01-11 13:59 | Inpatient (IN) | payer OTHER ==
[~2018-01-11] VITALS: Ht 167.6 cm; Wt 94.1 kg
[~2018-01-11 13:59] MED LIST changes: +DELTASONE20 M1 PO
[2018-01-11 14:04] VITALS: BP 124/84
[2018-01-11 15:14] LABS: BASO # 0.1 10*3/uL (0.0-0.1); BASO % 1.1 % (0.0-1.0); EOS # 0.4 10*3/uL (0.0-0.4); EOS % 4.3 % (1.0-4.0); HEMATOCRIT 41.1 % (37.0-47.0); HEMOGLOBIN 13.5 g/dl (12.0-16.0); LYMPH # 2.5 10*3/uL (1.3-4.4); LYMPH % 27.7 % (27.0-41.0); MEAN CELL VOLUME 94.3 fl (81.0-99.0); MEAN CORPUSCULAR HGB CONC 32.8 g/dl (33.0-37.0); MEAN PLATELET VOLUME 8.7 fl (9.6-12.3); MONO # 0.8 10*3/uL (0.1-1.0); MONO % 8.9 % (3.0-9.0); NEUT # 5.2 10*3/uL (2.3-7.9); NEUT % 57.7 % (47.0-73.0); PLATELET COUNT AUTOMATED 209 10*3/uL (130-400); RED BLOOD COUNT 4.36 10*6/uL (4.10-5.10); RED CELL DISTRI WIDTH 12.6 % (0-14.5)
[2018-01-11 15:20] LABS: BILIRUBIN NEGATIVE (NEGATIVE); BLOOD NEGATIVE (NEGATIVE); CLARITY SL CLOUDY (CLEAR); COLOR YELLOW (YELLOW); GLUCOSE NEGATIVE (NEGATIVE); KETONE NEGATIVE (NEGATIVE); LEUKO ESTERASE 2+ (NEGATIVE); NITRITE NEGATIVE (NEGATIVE); SPECIFIC GRAVITY <= 1.005 (1.005-1.030); UROBILINOGEN 0.2 E.U./dl (0.2-1.0)
[2018-01-11 15:24] LABS: ACT PARTIAL THROMBO TIME 26.7 SECONDS (20.8-31.5)
[2018-01-11 15:27] LABS: BACTERIA 1+; WBC TNTC wbc/hpf (0-5)
[2018-01-11 15:31] LABS: ALBUMIN 2.9 gm/dl (3.1-4.5); ALKALINE PHOSPHATASE 111 U/L (45-117); BUN 8 mg/dl (7-24); CHLORIDE 106 mmol/L (98-107); CREATININE 0.67 mg/dL (0.55-1.02); LIPASE 224 U/L (73-393); POTASSIUM 4.2 mmol/L (3.5-5.1); SGOT/AST 47 IU/L (3-35); SGPT/ALT 57 U/L (12-78); SODIUM 138 mmol/L (136-145); TOTAL PROTEIN 7.9 gm/dL (6.4-8.2)
[2018-01-11 15:35] VITALS: BP 128/70
[2018-01-11 17:10] VITALS: BP 130/80
[2018-01-11 19:46] VITALS: BP 126/80
[2018-01-11] MEDS ORDERED: GABAPENTIN400 MG PO (20:26)
[2018-01-11] MEDS ORDERED: VICTOZA 2-0.6 MG/0.1 SQ (20:29)
[2018-01-11] MEDS ORDERED: VRAYLAR1.5 MG PO (20:36)
[2018-01-12] VITALS: BP 134/75
[2018-01-12 07:36] LABS: ALBUMIN 2.7 gm/dl (3.1-4.5); ALKALINE PHOSPHATASE 106 U/L (45-117); BUN 8 mg/dl (7-24); CHLORIDE 101 mmol/L (98-107); CHOLESTEROL 146 mg/dL (<200); CREATININE 0.62 mg/dL (0.55-1.02); FREE T4 0.93 ng/dl (0.76-1.46); HDL CHOLESTEROL 38 mg/dl (40-60); LDL CHOLESTEROL 74 mg/dL (9-159); PHOSPHOROUS 3.4 mg/dL (2.5-4.9); POTASSIUM 4.3 mmol/L (3.5-5.1); SGOT/AST 86 IU/L (3-35); SGPT/ALT 68 U/L (12-78); SODIUM 137 mmol/L (136-145); TOTAL PROTEIN 7.5 gm/dL (6.4-8.2); TRIGLYCERIDES 172 mg/dl (<150); VLDL CHOLESTEROL 34 mg/dL (6-40)
[2018-01-12 08:00] VITALS: BP 128/73
[2018-01-12 08:13] LABS: VITAMIN D, 25-HYDROXY 23.8 ng/mL (30-100)
[2018-01-12 12:00] VITALS: BP 119/73
== END 2018-01-12 15:45 | disposition left against medical advice (07) | DRG 689 ==
LOC: ED 13:59 → 4E 18:53 → EDHOLD 18:53 → 4E 20:00
PROVIDERS: Family Medicine; Nurse Practitioner Family
DX: N39.0 Urinary tract infection, site not specified (principal); E43 Unspecified severe protein-calorie malnutrition; I50.32 Chronic diastolic (congestive) heart failure; R10.9 Unspecified abdominal pain; K43.9 Ventral hernia without obstruction or gangrene; L98.491 Non-pressure chronic ulcer of skin of other sites limited to breakdown of skin; R79.82 Elevated C-reactive protein (CRP); R74.0 Nonspecific elevation of levels of transaminase and lactic acid dehydrogenase [LDH]; I11.0 Hypertensive heart disease with heart failure; E55.9 Vitamin D deficiency, unspecified; J44.9 Chronic obstructive pulmonary disease, unspecified; M54.30 Sciatica, unspecified side; G40.909 Epilepsy, unspecified, not intractable, without status epilepticus; E66.9 Obesity, unspecified; E11.9 Type 2 diabetes mellitus without complications; F31.9 Bipolar disorder, unspecified; Z53.21 Procedure and treatment not carried out due to patient leaving prior to being seen by health care provider; F41.9 Anxiety disorder, unspecified; Z72.0 Tobacco use; Z71.6 Tobacco abuse counseling; Z99.81 Dependence on supplemental oxygen; Z86.14 Personal history of Methicillin resistant Staphylococcus aureus infection; Z98.51 Tubal ligation status; Z90.710 Acquired absence of both cervix and uterus; Z82.49 Family history of ischemic heart disease and other diseases of the circulatory system; Z88.6 Allergy status to analgesic agent; Z88.1 Allergy status to other antibiotic agents; Z79.899 Other long term (current) drug therapy; Z68.33 Body mass index [BMI] 33.0-33.9, adult; Z87.01 Personal history of pneumonia (recurrent); B96.20 Unspecified Escherichia coli [E. coli] as the cause of diseases classified elsewhere

== ENCOUNTER 2018-08-26 13:03 | Inpatient (IN) | payer MEDICAID ==
[~2018-08-26] VITALS: Ht 167.6 cm
[2018-08-26 13:03] VITALS: BP 134/72
[~2018-08-26 13:03] MED LIST changes: +AMINOPHYLLIN200 MG PO; +BACTRIM 400-801 EACH PO; +PRILOSEC20 M1 PO; +VICTOZA 2-0.6 MG/0.1 SQ; +VRAYLAR1.5 MG PO; +ZANTAC 150150 MG PO
--- NOTE | 2018-08-26 13:26 | NUR ---
THE PT VOIDED WHEN SHE ARRIVED AT THE ED
[2018-08-26 13:54] LABS: BASO % 0.5 % (0.0-1.0); EOS # 0.2 10*3/uL (0.0-0.4); EOS % 2.1 % (1.0-4.0); HEMATOCRIT 38.2 % (37.0-47.0); HEMOGLOBIN 12.4 g/dl (12.0-16.0); LYMPH # 1.8 10*3/uL (1.3-4.4); LYMPH % 21.8 % (27.0-41.0); MEAN CELL VOLUME 98.7 fl (81.0-99.0); MEAN CORPUSCULAR HGB CONC 32.5 g/dl (33.0-37.0); MEAN PLATELET VOLUME 9.7 fl (9.6-12.3); MONO # 0.5 10*3/uL (0.1-1.0); MONO % 6.7 % (3.0-9.0); NEUT # 5.5 10*3/uL (2.3-7.9); RED BLOOD COUNT 3.87 10*6/uL (4.10-5.10); RED CELL DISTRI WIDTH 13.2 % (0-14.5)
[2018-08-26 13:55] LABS: PLATELET COUNT AUTOMATED 143 10*3/uL (130-400)
[2018-08-26 14:27] LABS: BILIRUBIN NEGATIVE (NEGATIVE); BLOOD 2+ (NEGATIVE); CLARITY CLEAR (CLEAR); COLOR YELLOW (YELLOW); GLUCOSE NEGATIVE (NEGATIVE); KETONE NEGATIVE (NEGATIVE); LEUKO ESTERASE NEGATIVE (NEGATIVE); NITRITE NEGATIVE (NEGATIVE); SPECIFIC GRAVITY <= 1.005 (1.005-1.030); UROBILINOGEN 0.2 E.U./dl (0.2-1.0)
[2018-08-26 14:29] LABS: ALBUMIN 2.3 gm/dl (3.1-4.5); ALKALINE PHOSPHATASE 114 U/L (45-117); BUN 13 mg/dl (7-24); CHLORIDE 100 mmol/L (98-107); CREATININE 0.88 mg/dL (0.55-1.02); SGOT/AST 27 IU/L (3-35); SGPT/ALT 18 U/L (12-78); SODIUM 139 mmol/L (136-145)
[2018-08-26 14:30] LABS: POTASSIUM 3.2 mmol/L (3.5-5.1)
[2018-08-26 14:33] LABS: RBC 21-30 rbc/hpf (0-2)
--- NOTE | 2018-08-26 15:54 | NUR ---
Time: 1553 A 58 year old FEMALE admitted to [facility] under services of TIMOTEO OQUENDO DO. Chief complaint: WHEEZING. ROSALINE HINOJOSA
[2018-08-26 17:49] VITALS: BP 134/88
--- NOTE | 2018-08-26 19:05 | NUR ---
CALLED AND INFORMED THAT HOME MEDS ARE VERIFIED AND UPDATED. PATIENT IS REQUESTING BREATHING TREATMENT AT THIS TIME. PATIENT LUNF SOUNDS HAVE SCATTERED I&E WHEEZING. STATED OK, HE WILL PUT IN SOME ORDERS.
[2018-08-27 01:06] VITALS: BP 124/56
--- NOTE | 2018-08-27 03:00 | NUR ---
NURSE TO NURSE REPORT GIVEN TO THIS RN.
--- NOTE | 2018-08-27 03:22 | NUR ---
PT REQUESTING PAIN MEDICATION OF VICODIN.
[2018-08-27 03:24] VITALS: BP 145/83
--- NOTE | 2018-08-27 03:26 | NUR ---
PT MEDICATED WITH NORCO TABLET PER EMAR.VITALS REASSESSED.
[2018-08-27 06:14] LABS: HEMATOCRIT 35.6 % (37.0-47.0); HEMOGLOBIN 11.4 g/dl (12.0-16.0); MEAN CELL VOLUME 97.5 fl (81.0-99.0); MEAN CORPUSCULAR HGB 31.2 pg (27.0-31.0); MEAN PLATELET VOLUME 9.4 fl (9.6-12.3); PLATELET COUNT AUTOMATED 139 10*3/uL (130-400); RED BLOOD COUNT 3.65 10*6/uL (4.10-5.10); RED CELL DISTRI WIDTH 13.1 % (0-14.5); WHITE BLOOD COUNT 9.4 10*3/uL (4.8-10.8)
[2018-08-27 06:27] LABS: ALKALINE PHOSPHATASE 105 U/L (45-117); BUN 9 mg/dl (7-24); CHLORIDE 101 mmol/L (98-107); CREATININE 0.79 mg/dL (0.55-1.02); PHOSPHOROUS 3.8 mg/dL (2.5-4.9); POTASSIUM 3.6 mmol/L (3.5-5.1); SGOT/AST 24 IU/L (3-35); SGPT/ALT 15 U/L (12-78); SODIUM 140 mmol/L (136-145); TOTAL PROTEIN 6.8 gm/dL (6.4-8.2)
[2018-08-27 06:38] VITALS: BP 122/63
[2018-08-27 06:54] LABS: PLATELET SUFFICIENCY LOW (NORMAL); TOTAL CELLS COUNTED 100 #CELLS
[2018-08-27 09:00] VITALS: BP 128/67
--- NOTE | 2018-08-27 09:10 | NUR ---
PT ARRIVED TO FLOOR AT THIS TIME.
--- NOTE | 2018-08-27 09:20 | NUR ---
SHIFT DIRECTOR MADE AWARE OF ADMISSION WITH 6 WOUNDS UNSTAGED FROM ER.
--- NOTE | 2018-08-27 09:30 | NUR ---
MEDICATED WITH NORCO PER PRN ORDER FOR COMPLAINTS OF HEADACHE. WILL MONITOR FOR EFFECTIVENESS.
--- NOTE | 2018-08-27 10:20 | NUR ---
AIDA MADE AWARE OF PT'S WOUNDS.
--- NOTE | 2018-08-27 11:00 | NUR ---
PT RESTING COMFORTABLY. EARLIER NORCO EFFECTIVE.
[2018-08-27 12:00] VITALS: BP 146/76
--- NOTE | 2018-08-27 13:47 | NUR ---
Discharge instructions reviewed with patient/family. Patient receptive and verbalizes understanding. Follow-up care arranged. Written instructions given to patient/family. IV site removed. Pt denied transport to [facility]. TEJ PRICE
== END 2018-08-27 13:47 | disposition home or self-care (01) | DRG 871 ==
LOC: ED 13:03 → EDHOLD 14:38 → 4E 15:54 → EDHOLD 19:15 → 4E 08-27 08:27
PROVIDERS: Nurse Practitioner Family; Registered Nurse; ADMIT Internal Medicine
DX: A41.51 Sepsis due to Escherichia coli [E. coli] (principal); E43 Unspecified severe protein-calorie malnutrition; N39.0 Urinary tract infection, site not specified; I50.32 Chronic diastolic (congestive) heart failure; E87.2 Acidosis; R65.20 Severe sepsis without septic shock; F31.9 Bipolar disorder, unspecified; G60.0 Hereditary motor and sensory neuropathy; F41.9 Anxiety disorder, unspecified; G89.29 Other chronic pain; R10.9 Unspecified abdominal pain; I11.0 Hypertensive heart disease with heart failure; E66.9 Obesity, unspecified; G40.909 Epilepsy, unspecified, not intractable, without status epilepticus; M54.30 Sciatica, unspecified side; J44.9 Chronic obstructive pulmonary disease, unspecified; K43.9 Ventral hernia without obstruction or gangrene; F17.210 Nicotine dependence, cigarettes, uncomplicated; E78.1 Pure hyperglyceridemia; D53.9 Nutritional anemia, unspecified; X58.XXXS Exposure to other specified factors, sequela; E11.65 Type 2 diabetes mellitus with hyperglycemia; Z99.81 Dependence on supplemental oxygen; S31.109S Unspecified open wound of abdominal wall, unspecified quadrant without penetration into peritoneal cavity, sequela; Z88.6 Allergy status to analgesic agent; Z88.1 Allergy status to other antibiotic agents; Z87.01 Personal history of pneumonia (recurrent); Z90.710 Acquired absence of both cervix and uterus; Z98.51 Tubal ligation status; Z90.49 Acquired absence of other specified parts of digestive tract; Z82.49 Family history of ischemic heart disease and other diseases of the circulatory system; Z79.899 Other long term (current) drug therapy; Z68.32 Body mass index [BMI] 32.0-32.9, adult

== ENCOUNTER 2018-10-18 14:13 | Emergency (ER) | payer MEDICAID ==
[~2018-10-18] VITALS: Ht 167.6 cm; Wt 83.0 kg
[2018-10-18 14:14] VITALS: BP 160/78
[2018-10-18 15:01] LABS: BILIRUBIN NEGATIVE (NEGATIVE); BLOOD TRACE-INTACT (NEGATIVE); CLARITY CLOUDY (CLEAR); COLOR YELLOW (YELLOW); GLUCOSE NEGATIVE (NEGATIVE); KETONE NEGATIVE (NEGATIVE); LEUKO ESTERASE 2+ (NEGATIVE); NITRITE NEGATIVE (NEGATIVE); UROBILINOGEN 0.2 E.U./dl (0.2-1.0)
[2018-10-18 15:11] LABS: BACTERIA 3+; WBC TNTC wbc/hpf (0-5)
[2018-10-18] MEDS ORDERED: AMINOPHYLLIN200 MG PO (15:27)
== END 2018-10-18 15:33 | disposition home or self-care (01) ==
LOC: ED 14:13
PROVIDERS: Physician Assistant
DX: N39.0 Urinary tract infection, site not specified (principal); F17.200 Nicotine dependence, unspecified, uncomplicated; Z88.6 Allergy status to analgesic agent; Z88.1 Allergy status to other antibiotic agents; Z79.899 Other long term (current) drug therapy; Z90.710 Acquired absence of both cervix and uterus

== ENCOUNTER 2018-10-21 01:58 | Emergency (ER) | payer MEDICAID ==
[~2018-10-21] VITALS: Ht 167.6 cm; Wt 88.0 kg
[~2018-10-21 01:58] MED LIST changes: +REMERON30 M1 PO; -REMERON45 M1 PO
[2018-10-21 02:01] VITALS: BP 134/83
[2018-10-21 02:33] LABS: BILIRUBIN NEGATIVE (NEGATIVE); BLOOD 1+ (NEGATIVE); CLARITY CLEAR (CLEAR); COLOR YELLOW (YELLOW); GLUCOSE NEGATIVE (NEGATIVE); KETONE NEGATIVE (NEGATIVE); LEUKO ESTERASE TRACE (NEGATIVE); NITRITE NEGATIVE (NEGATIVE); PH 6.5 (5.0-9.0); SPECIFIC GRAVITY <= 1.005 (1.005-1.030)
[2018-10-21 02:44] LABS: RBC 21-30 rbc/hpf (0-2)
[2018-10-21] MEDS ORDERED: CYCLOBENZAPRINE5 M3 PO (04:47)
[2018-10-21] MEDS ORDERED: NON-ASPIRIN PA325 M2 PO (04:47)
== END 2018-10-21 05:09 | disposition home or self-care (01) ==
LOC: ED 01:58
PROVIDERS: Emergency Medicine Emergency Medical Services
DX: M51.36 Other intervertebral disc degeneration, lumbar region (principal); J44.9 Chronic obstructive pulmonary disease, unspecified; I11.0 Hypertensive heart disease with heart failure; I50.30 Unspecified diastolic (congestive) heart failure; E66.9 Obesity, unspecified; E11.621 Type 2 diabetes mellitus with foot ulcer; G40.909 Epilepsy, unspecified, not intractable, without status epilepticus; F17.210 Nicotine dependence, cigarettes, uncomplicated; E11.9 Type 2 diabetes mellitus without complications; Z79.899 Other long term (current) drug therapy; Z88.6 Allergy status to analgesic agent; Z88.1 Allergy status to other antibiotic agents

== ENCOUNTER 2018-12-14 18:20 | Inpatient (IN) | payer MEDICAID ==
[~2018-12-14] VITALS: Ht 167.6 cm; Wt 83.5 kg
--- NOTE | ~2018-12-14 | CON ---
[place], [place] REPORT OF CONSULTATION NAME: CHELLE VELASQUEZ UNIT #: [id number] ROOM: 402 DOCTOR: JAREK MARTINEZ MD BIRTHDATE: [birth year] DOS: 12/16/2018 PULMONARY CONSULTATION, EVALUATION AND MANAGEMENT CONSULTATION REQUESTED BY: Hospitalist Service. REASON FOR CONSULTATION: For assessment of acute exacerbation of COPD. HISTORY OF PRESENT ILLNESS: This is a 58-year-old white female patient known with history of chronic obstructive pulmonary disease, but not seen in my office on a regular basis, intermittently seen in the last few years, during the hospitalization, the patient admitted under care of the hospitalist service on date of 12/14/2018 with having progressive increased respiratory symptoms including shortness of breath, coughing, wheezing and chest tightness. The symptoms the patient has been noted progressive. The patient is blaming her symptoms occurring after she has been given flu shot last Tuesday. She has been admitted to the hospital and currently treated for acute exacerbation of COPD. She has reported reduction in respiratory symptoms, but resolution noted incomplete. There were no symptoms of chest pain or hemoptysis stated by the patient. Shortness of breath and wheezing other symptoms have been decreased. REVIEW OF SYSTEMS: CONSTITUTIONAL SYMPTOMS: Fatigue and tiredness noted without any symptoms of fever or chills. EYES: Denies burning, redness, or tenderness. EARS, NOSE, THROAT SYMPTOMS: Denies sore throat, hoarseness, otalgia, postnasal drainage or epistaxis. CARDIOVASCULAR: Denies angina pain, edema, pain of the lower extremities. GASTROINTESTINAL SYMPTOMS: Denies dysphagia, nausea, vomiting, diarrhea, abdominal pain, hematemesis, melena, or hematochezia. GENITOURINARY SYMPTOMS: No dysuria, suprapubic pain, or hematuria. MUSCULOSKELETAL SYMPTOMS: No acute joint pain, redness, or tenderness. CENTRAL NERVOUS SYSTEM: No dizziness, headache, diplopia, syncopal episodes. Remaining systems were reviewed. They were noted all negative. PAST MEDICAL HISTORY: 1. History of chronic obstructive pulmonary disease. 2. Ixjxoyl-Jjvfh-Ddtan disease. 3. History of major depression. 4. Drug overdose previously and admission in this hospital. 5. History of marijuana use. 6. Seizure disorder. 7. Nicotine dependence. 8. History of degenerative arthritis. 9. General anxiety disorder. 10. History of type 2 diabetes mellitus. PAST SURGICAL HISTORY: 1. Tubal ligation. [place], [place] REPORT OF CONSULTATION NAME: CHELLE VELASQUEZ UNIT #: [id number] ROOM: 402 DOCTOR: YNES CAMERON MD,JAREK BIRTHDATE: [birth year] 2. Hammertoe surgery. 3. Partial bowel resection, nonmalignant. 4. History of hiatal hernia repair. 5. Hysterectomy. SOCIAL HISTORY: The patient lives at home. Denies history of alcohol use or illicit drug use. Tobacco use noted variable use, currently stating smoking half a pack of cigarettes per day. Denies any history of alcohol use. History of marijuana use was stated. FAMILY HISTORY: The patient's father with complication of myocardial infarction. Mother , but illnesses are unknown. HOME MEDICATIONS: Listed as Xanax, Vraylar, cetirizine, vitamin D, diclofenac, doxepin, Cymbalta, Toviaz, Flovent HFA inhaler, gabapentin, [place], Victoza shots, lisinopril, metformin, methocarbamol, Remeron and omeprazole. CURRENT MEDICATIONS: Which were administered this hospitalization at the time of assessment this morning as the use of Remeron, azithromycin, Rocephin, Victoza shots, vitamin D, Zyrtec, Cymbalta, lisinopril, Vraylar, gabapentin, IV Solu-Medrol 40 mg b.i.d., Lovenox for DVT prophylaxis, albuterol sulfate 2.5 mg q. 4 hours, doxepin, methocarbamol, Protonix and some other oral meds. DRUG ALLERGIES: The patient was noted as allergies to: 1. ASPIRIN, upset of stomach. 2. MACROBID. 3. CIPROFLOXACIN. PHYSICAL EXAMINATION: GENERAL: A 58-year-old female patient who has been noted currently awake and alert without any distress this morning of assessment. The patient's height recorded by the nursing staff on this admission as 5 feet 6 inches, weight 184 pounds. VITAL SIGNS: Normal temperature, respiratory rate 18-20, heart rate of 84-99, blood pressure 129/78. The pulse oxygen saturation recorded 2 liters nasal cannula 92-95% saturation. HEENT: Examination shows head was atraumatic. Eyes nonicterus. NECK: Supple. CARDIOVASCULAR: S1, S2 audible. LUNGS: Moderate degree breath sounds bilaterally, diffuse expiratory wheezing, no crackles. ABDOMEN: Soft, nontender. Bowel sounds present. EXTREMITIES: No new change. MUSCULOSKELETAL: Without any deformities. LABORATORY DATA: Influenza A and B, nasal washing antigen negative. CBC done on 12/14/2018, WBC count 12.5, hemoglobin and hematocrit normal, platelet count normal. CMP, normal BUN and creatinine. Lactic acid 1.7 and 0.8. BMP done on ____ was noted as glucose 136, BUN and creatinine was normal. Blood culture from 12/14/2018 on admission remains negative. Chest x-ray, 2-view, which was [place], [place] REPORT OF CONSULTATION NAME: CHELLE VELASQUEZ UNIT #: [id number] ROOM: 402 DOCTOR: YNES CAMERON MD,JAREK BIRTHDATE: [birth year] done in the Emergency Room shows findings of hyperinflation, COPD without any acute abnormalities. IMPRESSION: The patient will be currently admitted to the hospital noted with acute exacerbation of chronic obstructive pulmonary disease, acute tracheobronchitis with persistent chronic nicotine dependence and history of marijuana use as well. Multiple other medical problem has been known previously unchanged including diabetes mellitus and others and significant psychiatric problem, which has been treated with various different medications. PLAN OF CARE: Continue Solu-Medrol, bronchodilators, oxygen supplementation. The patient was still noted significant wheezing. Other therapy, plan of management, additional treatment changes will be made and/or changed based on progression of the illness. JAREK QUICK MD CM:CONSTR:REPORT OF CONSULTATION 1410 12/16/18 1651 interface
[~2018-12-14 18:20] MED LIST changes: +CYCLOBENZAPRINE5 M3 PO; +NON-ASPIRIN PA325 M2 PO; -REMERON30 M1 PO; +REMERON45 M1 PO
[2018-12-14 19:06] LABS: BASO # 0.1 10*3/uL (0.0-0.1); BASO % 0.7 % (0.0-1.0); EOS # 0.4 10*3/uL (0.0-0.4); HEMATOCRIT 44.3 % (37.0-47.0); HEMOGLOBIN 14.4 g/dl (12.0-16.0); LYMPH # 3.3 10*3/uL (1.3-4.4); LYMPH % 26.5 % (27.0-41.0); MEAN CELL VOLUME 95.7 fl (81.0-99.0); MEAN CORPUSCULAR HGB 31.1 pg (27.0-31.0); MEAN CORPUSCULAR HGB CONC 32.5 g/dl (33.0-37.0); MEAN PLATELET VOLUME 8.7 fl (9.6-12.3); MONO # 0.8 10*3/uL (0.1-1.0); MONO % 6.6 % (3.0-9.0); NEUT # 7.9 10*3/uL (2.3-7.9); NEUT % 62.9 % (47.0-73.0); PLATELET COUNT AUTOMATED 264 10*3/uL (130-400); RED BLOOD COUNT 4.63 10*6/uL (4.10-5.10); RED CELL DISTRI WIDTH 12.7 % (0-14.5); WHITE BLOOD COUNT 12.5 10*3/uL (4.8-10.8)
[2018-12-14 19:11] VITALS: BP 156/66
[2018-12-14 19:21] LABS: ALBUMIN 3.1 gm/dl (3.1-4.5); ALKALINE PHOSPHATASE 120 U/L (45-117); BUN 10 mg/dl (7-24); CHLORIDE 100 mmol/L (98-107); CREATININE 0.75 mg/dL (0.55-1.02); POTASSIUM 3.9 mmol/L (3.5-5.1); SGOT/AST 22 IU/L (3-35); SGPT/ALT 23 U/L (12-78); SODIUM 136 mmol/L (136-145)
[2018-12-14 20:00] VITALS: BP 135/82
--- NOTE | 2018-12-14 21:10 | NUR ---
REPORT RECEIVED FROM ER NURSE ABBY.
[2018-12-14 21:25] VITALS: BP 135/82
--- NOTE | 2018-12-14 21:25 | NUR ---
Time: 2124 A 58 year old FEMALE admitted to under services of TOÑO CARLSON DO. Pt. arrived via stretcher from ER. Chief complaint: COUGH,SPUTUM. NISREEN GALAVIZ
[2018-12-14] MEDS ORDERED: CYMBALTA30 MG PO (22:33)
[2018-12-14] MEDS ORDERED: METHOCARBAMOL500 M1 PO (22:35)
[2018-12-14] MEDS ORDERED: CETIRIZINE10 MG PO (22:36)
[2018-12-14] MEDS ORDERED: FLOVENT HFA10.6 GM INH (22:36)
[2018-12-14] MEDS ORDERED: TOVIAZ8 MG PO (22:37)
[2018-12-14] MEDS ORDERED: NORCO 5-325 TA1 EACH PO (22:37)
[2018-12-14] MEDS ORDERED: VOLTAREN50 M1 PO (22:38)
[2018-12-14] MEDS ORDERED: VITAMIN D32000 UNI1 PO (22:39)
--- NOTE | 2018-12-14 22:40 | NUR ---
IV FELL OUT WHILE PATIENT WAS USING BATHROOM.
--- NOTE | 2018-12-14 23:30 | NUR ---
IV started right antecubital with #22 protective cath after 2 attempts. Site prepped with Chloroprep. Sterile dressing applied. Patient tolerated procedure well. NISREEN GALAVIZ
[2018-12-15] VITALS: BP 119/76
--- NOTE | 2018-12-15 00:47 | NUR ---
PATIENT REQUESTING MEDICATION TO HELP HER MUSCLES RELAX AND TO SLEEP. ROBAXIN AND XANAX ADMINISTERED PRESCRIBED.WILL MONITOR FOR EFFECTIVENESS.
--- NOTE | 2018-12-15 01:47 | NUR ---
PATIENT RESTING WITH EYES CLOSED. RESPIRATIONS EASY AND UNLABORED ON 2LNC. BED ALARM ON AND CALL LIGHT WITHIN REACH.
--- NOTE | 2018-12-15 03:59 | NUR ---
24 HR chart check completed.
--- NOTE | 2018-12-15 06:18 | NUR ---
PATIENT C/O HER MOUTH HURTING WHEN SHE EATS OR DRINKS ANYTHING.ABHINAVUW IS COVERED IN [place]. DR SANZ AWARE, WAITING FOR NEW ORDERS.
[2018-12-15 07:00] LABS: BASO % 0.2 % (0.0-1.0); HEMATOCRIT 39.2 % (37.0-47.0); HEMOGLOBIN 13.1 g/dl (12.0-16.0); LYMPH # 1.1 10*3/uL (1.3-4.4); LYMPH % 17.6 % (27.0-41.0); MEAN CELL VOLUME 94.7 fl (81.0-99.0); MEAN CORPUSCULAR HGB 31.6 pg (27.0-31.0); MEAN CORPUSCULAR HGB CONC 33.4 g/dl (33.0-37.0); MEAN PLATELET VOLUME 8.9 fl (9.6-12.3); MONO # 0.1 10*3/uL (0.1-1.0); MONO % 1.5 % (3.0-9.0); NEUT % 80.4 % (47.0-73.0); PLATELET COUNT AUTOMATED 207 10*3/uL (130-400); RED BLOOD COUNT 4.14 10*6/uL (4.10-5.10); RED CELL DISTRI WIDTH 12.3 % (0-14.5); WHITE BLOOD COUNT 6.2 10*3/uL (4.8-10.8)
[2018-12-15 07:14] LABS: BUN 16 mg/dl (7-24); CHLORIDE 105 mmol/L (98-107); PHOSPHOROUS 4.6 mg/dL (2.5-4.9); POTASSIUM 4.1 mmol/L (3.5-5.1); SODIUM 137 mmol/L (136-145)
[2018-12-15 08:00] VITALS: BP 132/68
--- NOTE | 2018-12-15 08:28 | NUR ---
CHELLE VELASQUEZ [id number] Please refer to the physician's history and physical for past medical history, comorbid conditions, and allergies. Diagnosis: SEPSIS, COPD EXACERBATION, PNEUMONITIS Saroj Score: 16,AT RISK WOUND DESCRIPTIONS: Wound Number: 1 Location of the wound: left lower abdomen Thickness: Full Size: 9.2cm x 6.8cm x 0.4cm Tunneling: none Undermining: none Sinus Tract: none Presence of Exudate: Purulent Amount: Moderate Color: Brown, yellow, red Odor: Foul Periwound Skin Appearance: Erythema Wound edges: approximated Pain (associated with wound): tender to touch How does patient state this happened? pt stated she has had this for over a year now and it started with an open area over the hernia and has never resolved she stated she followed in our wound care center with Dr. De La Rosa but had to switch to [place] due to her insurance coverage where she is still following. Wound Number: 2 Location of the wound: right elbow proximal Type of wound: scab Size: 7.2cm x 0.5cm x <0.1cm Tunneling: none Undermining: none Sinus Tract: none Presence of Exudate: none Amount: None Color: Red, brown Odor: None Periwound Skin Appearance: Erythema Wound edges: approximated Pain (associated with wound): none at time of assessment How does patient state this happened? pt stated she fell last tuesday and that is how she sustained these areas. Wound Number: 3 Location of the wound: right forearm Type of wound: scab Size: 1.5cm x 0.3cm x <0.1cm Tunneling: none Undermining: none Sinus Tract: none Presence of Exudate: none Amount: None Color: Red, brown Odor: None Periwound Skin Appearance: Erythema Wound edges: approximated Pain (associated with wound): none at time of assessment How does patient state this happened? pt stated she fell last tuesday and that is how she sustained these areas. Wound Number: 4 Location of the wound: left forearm Type of wound: scab Size: 2.5cm x 0.3cm x <0.1cm Tunneling: none Undermining: none Sinus Tract: none Presence of Exudate: none Amount: None Color: Red, brown Odor: None Periwound Skin Appearance: Erythema Wound edges: approximated Pain (associated with wound): none at time of assessment How does patient state this happened? pt stated she fell last tuesday and that is how she sustained these areas. Wound Number: 5 Location of the wound: left forearm medial Type of wound: scab Size: 2.9cm x 1.6cm x <0.1cm Tunneling: none Undermining: none Sinus Tract: none Presence of Exudate: none Amount: None Color: Red, brown Odor: None Periwound Skin Appearance: Erythema Wound edges: approximated Pain (associated with wound): none at time of assessment How does patient state this happened? pt stated she fell last tuesday and that is how she sustained these areas. Wound Number: 6 Location of the wound: left forearm lateral Type of wound: scab Size: 1.2cm x 0.6cm x <0.1cm Tunneling: none Undermining: none Sinus Tract: none Presence of Exudate: none Amount: None Color: Red, brown Odor: None Periwound Skin Appearance: Erythema Wound edges: approximated Pain (associated with wound): none at time of assessment How does patient state this happened? pt stated she fell last tuesday and that is how she sustained these areas. Wound Number: 7 Location of the wound: left forearm proximal Type of wound: scab Size: 7.5cm x 3.5cm x <0.1cm Tunneling: none Undermining: none Sinus Tract: none Presence of Exudate: none Amount: None Color: Red, brown Odor: None Periwound Skin Appearance: Erythema Wound edges: approximated Pain (associated with wound): none at time of assessment How does patient state this happened? pt stated she fell last tuesday and that is how she sustained these areas. Wound Number: 8 Location of the wound: right knee distal Type of wound: scab Size: 0.6cm x 0.6cm x <0.1cm Tunneling: none Undermining: none Sinus Tract: none Presence of Exudate: none Amount: None Color: Red, brown Odor: None Periwound Skin Appearance: Erythema Wound edges: approximated Pain (associated with wound): none at time of assessment How does patient state this happened? pt stated she fell last tuesday and that is how she sustained these areas. Wound Number: 9 Location of the wound: right knee Type of wound: scab Size: 0.6cm x 1.0cm x <0.1cm Tunneling: none Undermining: none Sinus Tract: none Presence of Exudate: none Amount: None Color: Red, brown Odor: None Periwound Skin Appearance: Erythema Wound edges: approximated Pain (associated with wound): none at time of assessment How does patient state this happened? pt stated she fell last tuesday and that is how she sustained these areas. Wound Number: 10 Location of the wound: right knee proximal Type of wound: scab Size: 0.9cm x 2.5cm x <0.1cm Tunneling: none Undermining: none Sinus Tract: none Presence of Exudate: none Amount: None Color: Red, brown Odor: None Periwound Skin Appearance: Erythema Wound edges: approximated Pain (associated with wound): none at time of assessment How does patient state this happened? pt stated she fell last tuesday and that is how she sustained these areas. Wound Number: 11 Location of the wound: lef knee Type of wound: scab Size: 1.5cm x 1.4cm x <0.1cm Tunneling: none Undermining: none Sinus Tract: none Presence of Exudate: none Amount: None Color: Red, brown Odor: None Periwound Skin Appearance: Erythema Wound edges: approximated Pain (associated with wound): none at time of assessment How does patient state this happened? pt stated she fell last tuesday and that is how she sustained these areas. Wound Number: 12 Location of the wound: left plantar aspect of foot Type of wound: unstageable Thickness: Full Size: 1.1cm x 0.6cm x <0.1cm Tunneling: none Undermining: none Sinus Tract: none Presence of Exudate: none Amount: None Color: Red, yellow Odor: None Periwound Skin Appearance: Erythema Wound edges: approximated Pain (associated with wound): tender to touch How does patient state this happened? pt stated this started 3-4 days ago Wound Number: 13 Location of the wound: right 4th toe Type of wound: unstageable Thickness: Full Size: 0.5cm x 0.6cm x <0.1cm Tunneling: none Undermining: none Sinus Tract: none Presence of Exudate: none Amount: None Color: brown, yellow Odor: None Periwound Skin Appearance: normal Wound edges: approximated Pain (associated with wound):none at time of assessment How does patient state this happened? pt stated this started 3-4 days ago Surface the patient is resting on: Position Pro SKIN PREVENTION RECOMMENDATION: 1. Pressure redistribution support surface as appropriate 2. Elevate heels 3. Remove boots/TEDS every shift and reapply 4. Head of bed 30 degrees as tolerated 5. Assess nutrition and hydration 6. Manage moisture 7. Avoid the use of containment devices while in bed 8. Use absorptive products on surfaces limit layers of linens on bed 9. Turn and reposition every 1-2 hours in bed and every 1 hour in chair as tolerated 10. Weight shifts every 15 minutes while up in chair 11. Offloading with pillows or device to keep heels elevated off bed 12. Monitor skin at least every shift 13. Inspect under medical devices twice a day WOUND TREATMENT RECOMMENDATIONS: d/c full thickness guideline to abdominal wound Heel raiser pro boots to bilateral feet while in bed. venous and arterial studies of bilateral feet due to wound Imaging studies of left foot due to wound and very tender to touch. Imaging studies to left lower abdomen due to wound very tender to touch. Patient is requesting Dr. De La Rosa be consult for debridement to abdomen since she is known to him. Consult podiatry for possible debridement of left plantar apsect of foot. Full thickness guidelines: Cleanse left lower abdomen with nss and apply sureprep around the wound therahoney sheet to wound bed and cover with abd pad and secure with tape. Cleanse bilateral upper extremities and bilateral lower extremities with soap and water and apply aquaphor ointment bid. Unstageable guidelines: Cleanse left plantar aspect of foot with nss and apply sureprep around the wound therahoney to wound bed and cover with optifoam gentle daily and prn for soiling. Unstageable guidelines: Apply sureprep to right 4th toe and cover with bandaid daily. Patient states she will continue to follow up with [facility] upon discharge.
--- NOTE | 2018-12-15 09:00 | NUR ---
MEDICATED WITH TYLENOL PER PRN ORDER FOR COMPLAINTS OF HEADACHE. WILL MONITOR FOR EFFECTIVENESS.
--- NOTE | 2018-12-15 09:00 | NUR ---
Attraction Worker in to talk to patient. Patient states lives at home with daughter and granddaughter. There are few steps in the home. Physician: elena aquino Pharmacy: [facility] Home health services: none Patient's level of ADLs: BEDFAST Patient has working utilities: all working, DME: home oxygen at , Follow-up physician's appointment after d/c: will be made by hospitalist nurse director upon discharge Does patient want to access PORTAL?: no Discharge plan discussed with patient, she lives at home with family, is independent, in adls and ambulation, patient states she will return home and denies any home needs. XIOMARA FLORES
--- NOTE | 2018-12-15 10:30 | NUR ---
PT STATES EARLIER TYLENOL HELPED WITH HEADACHE. RESTING COMFORTABLY.
--- NOTE | 2018-12-15 11:13 | NUR ---
DR QUICK'S OFFICE MADE AWARE OF NEW CONSULT. AWAITING CALL BACK FROM DR QUICK.
--- NOTE | 2018-12-15 11:31 | NUR ---
DR QUICK RETURNED CALL, NOTIFIED OF NEW CONSULT.
--- NOTE | 2018-12-15 11:53 | NUR ---
Dr. Kay notified of wound care recommendations.
[2018-12-15 12:00] VITALS: BP 121/73; BP 122/67
--- NOTE | 2018-12-15 12:38 | NUR ---
PT COMPLAINING OF SORE MOUTH, PT APPEARS TO HAVE BEGINNING STAGE OF THRUSH. SPOKE WITH DR GALAVIZ, ORDERS RECEIVED.
--- NOTE | 2018-12-15 13:48 | NUR ---
MEDICATED WITH XANAX FOR COMPLAINTS OF ANXIETY. WILL MONITOR FOR EFFECTIVENESS.
--- NOTE | 2018-12-15 15:00 | NUR ---
PT RESTING, EARLIER XANAX EFFECTIVE.
[2018-12-15 16:00] VITALS: BP 127/75
--- NOTE | 2018-12-15 18:00 | NUR ---
DR AMES MADE AWARE OF NEW CONSULT.
--- NOTE | 2018-12-15 18:03 | NUR ---
MESSAGE LEFT ON THE PODIATRY RESIDENT PHONE REGARDING NEW CONSULT. AWAITING CALL BACK.
--- NOTE | 2018-12-15 18:26 | NUR ---
MEDICATED WITH TYLENOL PER PRN ORDER FOR COMPLAINTS OF HEADACHE. WILL MONITOR FOR EFFECTIVENESS,
[2018-12-15 20:00] VITALS: BP 128/65
[2018-12-16] VITALS: BP 129/70
[2018-12-16 07:18] LABS: BASO % 0.2 % (0.0-1.0); HEMATOCRIT 39.5 % (37.0-47.0); HEMOGLOBIN 13.3 g/dl (12.0-16.0); LYMPH # 2.1 10*3/uL (1.3-4.4); LYMPH % 18.4 % (27.0-41.0); MEAN CELL VOLUME 93.6 fl (81.0-99.0); MEAN CORPUSCULAR HGB 31.5 pg (27.0-31.0); MEAN CORPUSCULAR HGB CONC 33.7 g/dl (33.0-37.0); MEAN PLATELET VOLUME 8.6 fl (9.6-12.3); MONO # 0.6 10*3/uL (0.1-1.0); MONO % 4.8 % (3.0-9.0); NEUT # 8.7 10*3/uL (2.3-7.9); PLATELET COUNT AUTOMATED 264 10*3/uL (130-400); RED BLOOD COUNT 4.22 10*6/uL (4.10-5.10); RED CELL DISTRI WIDTH 12.1 % (0-14.5); WHITE BLOOD COUNT 11.4 10*3/uL (4.8-10.8)
[2018-12-16 07:47] LABS: ALBUMIN 2.8 gm/dl (3.1-4.5); ALKALINE PHOSPHATASE 98 U/L (45-117); BUN 20 mg/dl (7-24); CHLORIDE 104 mmol/L (98-107); CREATININE 0.64 mg/dL (0.55-1.02); POTASSIUM 4.2 mmol/L (3.5-5.1); SGOT/AST 10 IU/L (3-35); SGPT/ALT 15 U/L (12-78); SODIUM 137 mmol/L (136-145); TOTAL PROTEIN 8.2 gm/dL (6.4-8.2)
[2018-12-16 07:59] VITALS: BP 130/66
--- NOTE | 2018-12-16 09:05 | NUR ---
DR MCLAUGHLIN MADE AWARE OF NEW CONSULT.
--- NOTE | 2018-12-16 09:29 | NUR ---
PT COMPLAINING OF CONTINUED HEADACHE, PT STATES TYLENOL HAS NOT HELPED. SPOKE WITH DR GALAVIZ. STATES THEY ARE ROUNDING AND WILL SEE PT.
--- NOTE | 2018-12-16 11:23 | NUR ---
ABDOMINAL DRESSING CHANGED PER ORDER.
[2018-12-16 12:00] VITALS: BP 149/96
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
== END 2018-12-16 12:45 | disposition left against medical advice (07) | DRG 871 ==
LOC: ED 18:20 → 4E 20:34 → EDHOLD 20:34 → 4E 20:59
PROVIDERS: Emergency Medicine; Nurse Practitioner Family; Student in an Organized Health Care Education/Training Program; ADMIT Family Medicine
DX: A41.9 Sepsis, unspecified organism (principal); J18.9 Pneumonia, unspecified organism; J44.1 Chronic obstructive pulmonary disease with (acute) exacerbation; J44.0 Chronic obstructive pulmonary disease with (acute) lower respiratory infection; E44.0 Moderate protein-calorie malnutrition; I50.32 Chronic diastolic (congestive) heart failure; R74.8 Abnormal levels of other serum enzymes; E88.09 Other disorders of plasma-protein metabolism, not elsewhere classified; E11.65 Type 2 diabetes mellitus with hyperglycemia; I11.0 Hypertensive heart disease with heart failure; E55.9 Vitamin D deficiency, unspecified; E66.9 Obesity, unspecified; F17.210 Nicotine dependence, cigarettes, uncomplicated; G40.909 Epilepsy, unspecified, not intractable, without status epilepticus; F12.10 Cannabis abuse, uncomplicated; K43.9 Ventral hernia without obstruction or gangrene; F31.9 Bipolar disorder, unspecified; G60.0 Hereditary motor and sensory neuropathy; F41.1 Generalized anxiety disorder; J20.9 Acute bronchitis, unspecified; Z53.29 Procedure and treatment not carried out because of patient's decision for other reasons; S91.309A Unspecified open wound, unspecified foot, initial encounter; S31.109A Unspecified open wound of abdominal wall, unspecified quadrant without penetration into peritoneal cavity, initial encounter; X58.XXXA Exposure to other specified factors, initial encounter; Y93.89 Activity, other specified; Y92.89 Other specified places as the place of occurrence of the external cause; Y99.8 Other external cause status; Z99.81 Dependence on supplemental oxygen; Z71.6 Tobacco abuse counseling; Z90.710 Acquired absence of both cervix and uterus; Z88.6 Allergy status to analgesic agent; Z88.8 Allergy status to other drugs, medicaments and biological substances; Z88.1 Allergy status to other antibiotic agents; Z87.01 Personal history of pneumonia (recurrent); Z98.51 Tubal ligation status; Z82.49 Family history of ischemic heart disease and other diseases of the circulatory system; Z79.899 Other long term (current) drug therapy; Z68.24 Body mass index [BMI] 24.0-24.9, adult

== ENCOUNTER 2019-01-08 16:29 | Inpatient (IN) | payer MEDICAID ==
[~2019-01-08] VITALS: Ht 167.6 cm; Wt 84.4 kg
[~2019-01-08 16:29] MED LIST changes: +CETIRIZINE10 MG PO; +FLOVENT HFA10.6 GM INH; +METHOCARBAMOL500 M1 PO; +REMERON30 M1 PO; -REMERON45 M1 PO; +TOVIAZ8 MG PO; +VITAMIN D32000 UNI1 PO; +VOLTAREN50 M1 PO
[2019-01-08 16:36] VITALS: BP 111/83
[2019-01-08 16:55] LABS: BASO # 0.1 10*3/uL (0.0-0.1); BASO % 0.8 % (0.0-1.0); EOS # 0.4 10*3/uL (0.0-0.4); EOS % 2.8 % (1.0-4.0); HEMATOCRIT 46.5 % (37.0-47.0); HEMOGLOBIN 15.2 g/dl (12.0-16.0); LYMPH # 3.7 10*3/uL (1.3-4.4); LYMPH % 23.3 % (27.0-41.0); MEAN CELL VOLUME 95.1 fl (81.0-99.0); MEAN CORPUSCULAR HGB 31.1 pg (27.0-31.0); MEAN CORPUSCULAR HGB CONC 32.7 g/dl (33.0-37.0); MEAN PLATELET VOLUME 8.7 fl (9.6-12.3); MONO # 1.1 10*3/uL (0.1-1.0); MONO % 6.6 % (3.0-9.0); NEUT # 10.5 10*3/uL (2.3-7.9); NEUT % 65.7 % (47.0-73.0); PLATELET COUNT AUTOMATED 415 10*3/uL (130-400); RED BLOOD COUNT 4.89 10*6/uL (4.10-5.10); RED CELL DISTRI WIDTH 13.1 % (0-14.5)
--- NOTE | 2019-01-08 16:57 | NUR ---
PT STATES "I WEAR 3 LITERS O2 AT HOME NEEDED AT NIGHT."
[2019-01-08 17:05] VITALS: BP 120/91
[2019-01-08 17:14] LABS: ALBUMIN 3.6 gm/dl (3.1-4.5); CREATININE 1.18 mg/dL (0.55-1.02); POTASSIUM 4.9 mmol/L (3.5-5.1); TOTAL PROTEIN 9.3 gm/dL (6.4-8.2)
[2019-01-08 17:49] VITALS: BP 106/76
--- NOTE | 2019-01-08 18:18 | NUR ---
PT VOMITING LARGE AMT GREEN BILE.
[2019-01-08 18:32] VITALS: BP 115/83
[2019-01-08 18:58] VITALS: BP 115/83
--- NOTE | 2019-01-08 20:00 | NUR ---
16FR NG TUBE PLACED INTO PT RIGHT NARE. TOLERATED WELL. PLACEMENT VERIFIED.
[2019-01-08 21:00] VITALS: BP 113/79
--- NOTE | 2019-01-08 21:00 | NUR ---
A 58, admitted to , under the services of TIMOTEO Oquendo DO with a diagnosis of WOUND CELLULITIS, LEUKOCYTOSIS, SEPSIS, SMALL BOWEL OBSTRUCTION. Chief complaint is OPEN WOUND LLQ W/ DRAINAGE, WEAKNESS, N/V. Patient arrived via stretcher from ER. Monitor applied. Initial assessment completed. Vital signs taken and recorded. TIMOTEO OQUENDO DO notified of admission to the unit. Orders received. See assessment for past medical history, medications and allergies. Patient and/or family oriented to unit. [facility] visitation policy reviewed. Clothing/patient valuable form completed. BELL HERNANDEZ
--- NOTE | 2019-01-08 21:27 | NUR ---
CALLED AT THIS TIME REGARDING CONSULT. STATES ER ALREADY CALLED HIM AND HE KNOWS ABOUT PATIENT-INCLUDING SMALL BOWEL OBSTRUCTION & NG TUBE PLACEMENT. NO OTHER ORDERS NEEDED AT THIS TIME PER .
[2019-01-08] MEDS ORDERED: TIZANIDINE HCL4 MG PO (21:48)
[2019-01-08] MEDS ORDERED: PROAIR HFA8.5 GM INH (21:48)
[2019-01-08] MEDS ORDERED: AMITRIPTYLINE25 MG PO (21:50)
--- NOTE | 2019-01-08 22:00 | NUR ---
MED REC UP TO DATE PER DAUGHTER. DAUGHTER/PT UNSURE ABOUT VOLTAREN AND TOVIAZ. MEDS LEFT UNVERIFIED FOR THIS REASON.
--- NOTE | 2019-01-08 22:45 | NUR ---
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 OKAY TO ORDER WOUND CX TO RULE OUT MRSA. PT PLACED IN ISOLATION UNTIL RESULTS COME BACK.
--- NOTE | 2019-01-08 23:38 | NUR ---
WOUND CX TO ABD COLLECTED AND SENT PER ORDER.
--- NOTE | 2019-01-08 23:40 | NUR ---
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 OKAY TO ORDER WOUND CX TO RULE OUT MRSA. PT PLACED IN ISOLATION UNTIL RESULTS COME BACK.
[2019-01-09] VITALS: BP 131/95
--- NOTE | 2019-01-09 01:46 | NUR ---
TEDs/SCDs APPLIED PER ORDER. WOUND DRESSING APPLIED PER ORDER. WILL MONITOR. BED ALARM INTACT. CALL LIGHT IN REACH.
--- NOTE | 2019-01-09 04:11 | NUR ---
PT HAS HAD 4,000 ML OF OUTPUT FROM NG TUBE SINCE IT WAS PLACED AT 8PM. MADE AWARE OF THIS. ALSO AWARE PT HAS NOT URINATED YET, SO RN UNABLE TO GET UA^UC THAT WAS ORDRED. DISCUSSED 2 BOLUSES GIVEN IN ER AND NS@125 ML/HR X1 BAG. NEW ORDER RECEIVED FOR NS@150 ML/HR X1 BAG.
--- NOTE | 2019-01-09 04:19 | NUR ---
IVF INCREASED TO 150 ML/HR AT THIS TIME.
--- NOTE | 2019-01-09 06:10 | NUR ---
CHELLE VELASQUEZ [id number] Please refer to the physician's history and physical for past medical history, comorbid conditions, and allergies. Diagnosis: WOUND CELLULITIS,LEUKOCYTOSIS,SEPSIS,SM BOWEL OBST Saroj Score: 18,AT RISK WOUND DESCRIPTIONS: Wound Number: 1 Location of the wound: left lower abdomen Thickness: Full Size: 9.4cm x 7.2cm x >0.1cm Tunneling: none Undermining: none Sinus Tract: none Presence of Exudate: Purulent Amount: Light Color: Brown, yellow, red, purple Odor: none Periwound Skin Appearance: Erythema Wound edges: approximated Pain (associated with wound): tender to touch How does patient state this happened? pt stated she has had this for over a year now and it started with an open area over the hernia and has never resolved she stated she followed in our wound care center with Dr. De La Rosa but had to switch to [place] due to her insurance coverage where she is still following. pt states that she uses lidocaine gel and hydrogel for her current treatments from the wound care center in [place]. Intact scab noted to right knee and left hernandez. No redness noted to surrounding areas at time of assessment. No drainage noted at time of assessment. Multiple areas noted to bilateral feet at time of assessment. No open areas noted at time of assessment to bilateral feet or drainage at time of assessment. Surface the patient is resting on: Position Pro SKIN PREVENTION RECOMMENDATION: 1. Pressure redistribution support surface as appropriate 2. Elevate heels 3. Remove boots/TEDS every shift and reapply 4. Head of bed 30 degrees as tolerated 5. Assess nutrition and hydration 6. Manage moisture 7. Avoid the use of containment devices while in bed 8. Use absorptive products on surfaces limit layers of linens on bed 9. Turn and reposition every 1-2 hours in bed and every 1 hour in chair as tolerated 10. Weight shifts every 15 minutes while up in chair 11. Offloading with pillows or device to keep heels elevated off bed 12. Monitor skin at least every shift 13. Inspect under medical devices twice a day WOUND TREATMENT RECOMMENDATIONS: Heel raiser pro boots to bilateral feet while in bed. Continue full thickness guidelines to left lower abdomen. Surgery is already on consult for small bowel obstruction patient used to follow with Dr. De La Rosa for wound care may need possible debridement of left lower abdomen Patient states she will continue follow up care with [place] [facility] due to her insurance she is unable to follow with Dr. De La Rosa in our wound care center.
--- NOTE | 2019-01-09 06:50 | NUR ---
NEW NG TUBE PLACED AT THIS TIME OLD ONE HAD TEAR/LEAK AND WOULD NOT PROPERLY SUCTION. PLACEMENT VERIFIED VIA AIR BOLUS. STAT CXR ORDERED TO VERIFY PLACEMENT FURTHER.
[2019-01-09 06:52] LABS: BASO # 0.1 10*3/uL (0.0-0.1); BASO % 0.6 % (0.0-1.0); EOS # 0.3 10*3/uL (0.0-0.4); EOS % 2.8 % (1.0-4.0); HEMATOCRIT 46.6 % (37.0-47.0); LYMPH # 1.3 10*3/uL (1.3-4.4); LYMPH % 13.2 % (27.0-41.0); MEAN CELL VOLUME 95.3 fl (81.0-99.0); MEAN CORPUSCULAR HGB 30.7 pg (27.0-31.0); MEAN CORPUSCULAR HGB CONC 32.2 g/dl (33.0-37.0); MEAN PLATELET VOLUME 8.9 fl (9.6-12.3); MONO # 0.8 10*3/uL (0.1-1.0); MONO % 7.6 % (3.0-9.0); NEUT # 7.6 10*3/uL (2.3-7.9); NEUT % 75.6 % (47.0-73.0); PLATELET COUNT AUTOMATED 383 10*3/uL (130-400); RED BLOOD COUNT 4.89 10*6/uL (4.10-5.10); WHITE BLOOD COUNT 10.1 10*3/uL (4.8-10.8)
[2019-01-09 07:06] LABS: ALKALINE PHOSPHATASE 131 U/L (45-117); BUN 23 mg/dl (7-24); CHLORIDE 97 mmol/L (98-107); CREATININE 1.12 mg/dL (0.55-1.02); POTASSIUM 4.1 mmol/L (3.5-5.1); SGOT/AST 28 IU/L (3-35); SGPT/ALT 27 U/L (12-78); SODIUM 134 mmol/L (136-145); TOTAL PROTEIN 8.2 gm/dL (6.4-8.2)
[2019-01-09 07:10] LABS: ACT PARTIAL THROMBO TIME 26.8 SECONDS (20.0-32.1)
[2019-01-09 08:00] VITALS: BP 104/65
--- NOTE | 2019-01-09 08:28 | NUR ---
CHEST XRAY CONFIRMS PLACEMENT. SUCTION RESTARTED AT LOW INTERMITTENT. WILL CONTINUE TO MONITOR.
--- NOTE | 2019-01-09 09:00 | NUR ---
Erp Project Manager in to talk to patient. Patient states lives at home with family. There are few steps in the home. Physician: elena aquino Pharmacy: [facility] Home health services: none Patient's level of ADLs: INDEPENDENT Patient has working utilities: all working DME: home oxygen she uses at Follow-up physician's appointment after d/c: will be made by hospitalist nurse director upon discharge Does patient want to access PORTAL?: no Discharge plan discussed with patient, she lives at home with her family, she is independent in adls and ambulation she states she will be returning home when medically stable and denies any home needs. XIOMARA FLORES
--- NOTE | 2019-01-09 09:56 | NUR ---
Dr. Ortiz notified of wound care recommendations.
--- NOTE | 2019-01-09 10:25 | NUR ---
DR. AVILES INTO SEE PATIENT. STATES TO NOT GIVE PATIENT MEDICATES THROUGH NG TUBE.
--- NOTE | 2019-01-09 11:30 | NUR ---
PATIENT AND DAUGHTERS OKAY WITH TRANSFER.
--- NOTE | 2019-01-09 11:39 | NUR ---
PATIENT MEDICATED WITH MORPHINE FOR COMPLAINTS OF SEVERE ABDOMINAL PAIN. RATES 11/23. WILL CHECK EFFECTIVENESS.
[2019-01-09 12:00] VITALS: BP 118/69
--- NOTE | 2019-01-09 15:04 | NUR ---
PATIENT MEDICATED WITH MORPHINE FOR COMPLAINTS OF SEVERE ABDOMINAL PAIN. RATES 11/23. WILL CHECK EFFECTIVNESS.
[2019-01-09 16:00] VITALS: BP 119/75
--- NOTE | 2019-01-09 16:03 | NUR ---
Nursing screen received and chart review completed. Patient to be transferred to another facility for SBO. Thank you. Norma Terrell OTR/L
[2019-01-09 16:49] LABS: BILIRUBIN NEGATIVE (NEGATIVE); BLOOD NEGATIVE (NEGATIVE); CLARITY SL CLOUDY (CLEAR); COLOR YELLOW (YELLOW); GLUCOSE NEGATIVE (NEGATIVE); KETONE NEGATIVE (NEGATIVE); LEUKO ESTERASE TRACE (NEGATIVE); NITRITE NEGATIVE (NEGATIVE)
[2019-01-09 16:57] LABS: BACTERIA TRACE; EPITHELIAL CELLS 25-30; WBC 31-40 wbc/hpf (0-5)
--- NOTE | 2019-01-09 17:28 | NUR ---
PATIENT MEDICATED WITH MORPHINE FOR COMPLAINTS OF ABDOMINAL PAIN. RATES 09/23.; WILL CHECK EFFECTIVENESS.
--- NOTE | 2019-01-09 17:35 | NUR ---
ATTEMPTED TO CALL PATIENTS DAUGHTERNISREEN REGARDING PATIENT BEING TRANSFERED. NO ANSWER. VOICEMAIL LEFT
--- NOTE | 2019-01-09 17:48 | NUR ---
REPORT GIVEN TO GAEL FROM [facility].
--- NOTE | 2019-01-09 17:49 | NUR ---
PATIENT OFF FLOOR WITH [facility] AT THIS TIME. HEART MONITOR REMOVED. Discharge instructions reviewed with patient/family. Patient receptive and verbalizes understanding. Follow-up care arranged. Written instructions given to patient/family. TEJ ORTA
--- NOTE | 2019-01-09 18:08 | NUR ---
NOTIFIED PATIENTS DAUGHTER,PAUL OF TRANSFER.
== END 2019-01-09 17:48 | disposition short-term general hospital (02) | DRG 871 ==
LOC: ED 16:29 → EDHOLD 19:48 → 4E 19:48
PROVIDERS: Nurse Practitioner; Student in an Organized Health Care Education/Training Program; ADMIT Internal Medicine
DX: A41.9 Sepsis, unspecified organism (principal); N17.0 Acute kidney failure with tubular necrosis; E44.0 Moderate protein-calorie malnutrition; E87.1 Hypo-osmolality and hyponatremia; I50.32 Chronic diastolic (congestive) heart failure; K56.600 Partial intestinal obstruction, unspecified as to cause; T81.49XA Infection following a procedure, other surgical site, initial encounter; L03.90 Cellulitis, unspecified; D47.3 Essential (hemorrhagic) thrombocythemia; E88.09 Other disorders of plasma-protein metabolism, not elsewhere classified; G40.909 Epilepsy, unspecified, not intractable, without status epilepticus; R65.20 Severe sepsis without septic shock; E11.65 Type 2 diabetes mellitus with hyperglycemia; J44.9 Chronic obstructive pulmonary disease, unspecified; I11.0 Hypertensive heart disease with heart failure; K43.9 Ventral hernia without obstruction or gangrene; F17.210 Nicotine dependence, cigarettes, uncomplicated; F41.9 Anxiety disorder, unspecified; K76.0 Fatty (change of) liver, not elsewhere classified; K46.9 Unspecified abdominal hernia without obstruction or gangrene; E55.9 Vitamin D deficiency, unspecified; M54.30 Sciatica, unspecified side; E87.8 Other disorders of electrolyte and fluid balance, not elsewhere classified; R74.0 Nonspecific elevation of levels of transaminase and lactic acid dehydrogenase [LDH]; F31.9 Bipolar disorder, unspecified; Y83.8 Other surgical procedures as the cause of abnormal reaction of the patient, or of later complication, without mention of misadventure at the time of the procedure; Z99.81 Dependence on supplemental oxygen; Z71.6 Tobacco abuse counseling; Z88.1 Allergy status to other antibiotic agents; Z88.8 Allergy status to other drugs, medicaments and biological substances; Z88.6 Allergy status to analgesic agent; Z87.01 Personal history of pneumonia (recurrent); Z98.51 Tubal ligation status; Z90.710 Acquired absence of both cervix and uterus; Z82.49 Family history of ischemic heart disease and other diseases of the circulatory system; Z79.899 Other long term (current) drug therapy; Y92.89 Other specified places as the place of occurrence of the external cause

== ENCOUNTER 2019-01-14 22:32 | Emergency (ER) | payer MEDICAID ==
[~2019-01-14] VITALS: Ht 167.6 cm; Wt 82.6 kg
[~2019-01-14 22:32] MED LIST changes: +AMITRIPTYLINE25 MG PO; +TIZANIDINE HCL4 MG PO
[2019-01-14] MEDS ORDERED: 'XANAX1 MG PO (22:36)
[2019-01-14] MEDS ORDERED: GABAPENTIN400 MG PO (22:37)
[2019-01-14] MEDS ORDERED: AMITRIPTYLINE25 MG PO (22:37)
[2019-01-14] MEDS ORDERED: PROAIR HFA8.5 GM INH (22:38)
[2019-01-14] MEDS ORDERED: VRAYLAR4.5 MG PO (22:38)
[2019-01-14] MEDS ORDERED: DULOXETINE HCL30 MG PO (22:38)
[2019-01-14] MEDS ORDERED: DULOXETINE HCL60 MG PO (22:38)
[2019-01-14] MEDS ORDERED: TIZANIDINE HCL4 MG PO (22:39)
[2019-01-14] MEDS ORDERED: TOVIAZ8 MG PO (22:39)
[2019-01-14] MEDS ORDERED: VICTOZA 2-0.6 MG/0.1 SC (22:40)
[2019-01-14] MEDS ORDERED: FLOVENT HFA10.6 GM INH (22:41)
[2019-01-14] MEDS ORDERED: LISINOPRIL20 MG PO (22:41)
[2019-01-14] MEDS ORDERED: OMEPRAZOLE40 MG PO (22:41)
[2019-01-14] MEDS ORDERED: METFORMIN HYD1000 MG PO (22:41)
[2019-01-14] MEDS ORDERED: VITAMIN D32000 UNI1 PO (22:42)
[2019-01-14 23:33] LABS: HEMATOCRIT 47.2 % (37.0-47.0); HEMOGLOBIN 15.4 g/dl (12.0-16.0); MEAN CELL VOLUME 95.4 fl (81.0-99.0); MEAN CORPUSCULAR HGB 31.1 pg (27.0-31.0); MEAN CORPUSCULAR HGB CONC 32.6 g/dl (33.0-37.0); MEAN PLATELET VOLUME 9.2 fl (9.6-12.3); PLATELET COUNT AUTOMATED 430 10*3/uL (130-400); RED BLOOD COUNT 4.95 10*6/uL (4.10-5.10); RED CELL DISTRI WIDTH 13.4 % (0-14.5); WHITE BLOOD COUNT 18.5 10*3/uL (4.8-10.8)
[2019-01-14 23:47] LABS: ALBUMIN 3.9 gm/dl (3.1-4.5); CREATININE 2.45 mg/dL (0.55-1.02); POTASSIUM 3.9 mmol/L (3.5-5.1); TOTAL PROTEIN 9.8 gm/dL (6.4-8.2)
[2019-01-15 00:02] LABS: PLATELET SUFFICIENCY HIGH (NORMAL); TOTAL CELLS COUNTED 100 #CELLS
[2019-01-15 01:05] VITALS: BP 102/60
== END 2019-01-15 02:10 | disposition short-term general hospital (02) ==
LOC: ED 22:32
PROVIDERS: Emergency Medicine
DX: K56.609 Unspecified intestinal obstruction, unspecified as to partial versus complete obstruction (principal); N17.9 Acute kidney failure, unspecified; J44.9 Chronic obstructive pulmonary disease, unspecified; E66.9 Obesity, unspecified; G40.909 Epilepsy, unspecified, not intractable, without status epilepticus; E11.9 Type 2 diabetes mellitus without complications; I11.0 Hypertensive heart disease with heart failure; I50.30 Unspecified diastolic (congestive) heart failure; K21.9 Gastro-esophageal reflux disease without esophagitis; F17.210 Nicotine dependence, cigarettes, uncomplicated; Z88.6 Allergy status to analgesic agent; Z88.1 Allergy status to other antibiotic agents; Z88.8 Allergy status to other drugs, medicaments and biological substances; Z79.899 Other long term (current) drug therapy

== ENCOUNTER 2019-04-02 18:18 | Emergency (ER) | payer MEDICAID ==
[~2019-04-02] VITALS: Wt 77.1 kg
[~2019-04-02 18:18] MED LIST changes: +'XANAX1 MG PO; +DULOXETINE HCL30 MG PO; +METFORMIN HYD1000 MG PO; +OMEPRAZOLE40 MG PO; +VICTOZA 2-0.6 MG/0.1 SC; +VRAYLAR4.5 MG PO
[2019-04-02 18:26] VITALS: BP 101/70
== END 2019-04-02 21:22 | disposition home or self-care (01) ==
LOC: ED 18:18
DX: K14.8 Other diseases of tongue (principal); J02.9 Acute pharyngitis, unspecified; F17.200 Nicotine dependence, unspecified, uncomplicated; Z88.6 Allergy status to analgesic agent; Z88.1 Allergy status to other antibiotic agents; Z79.899 Other long term (current) drug therapy; Z90.710 Acquired absence of both cervix and uterus

== ENCOUNTER 2019-04-07 13:22 | Emergency (ER) | payer MEDICAID ==
[~2019-04-07] VITALS: Ht 167.6 cm; Wt 77.1 kg
[2019-04-07 13:25] VITALS: BP 167/71
[2019-04-07 14:57] LABS: BASO % 0.8 % (0.0-1.0); EOS # 0.2 10*3/uL (0.0-0.4); EOS % 2.8 % (1.0-4.0); HEMATOCRIT 34.8 % (37.0-47.0); HEMOGLOBIN 11.3 g/dl (12.0-16.0); LYMPH # 1.4 10*3/uL (1.3-4.4); LYMPH % 27.1 % (27.0-41.0); MEAN CELL VOLUME 91.6 fl (81.0-99.0); MEAN CORPUSCULAR HGB 29.7 pg (27.0-31.0); MEAN CORPUSCULAR HGB CONC 32.5 g/dl (33.0-37.0); MEAN PLATELET VOLUME 8.5 fl (9.6-12.3); MONO # 0.3 10*3/uL (0.1-1.0); MONO % 6.1 % (3.0-9.0); NEUT # 3.3 10*3/uL (2.3-7.9); NEUT % 62.6 % (47.0-73.0); PLATELET COUNT AUTOMATED 218 10*3/uL (130-400); RED CELL DISTRI WIDTH 12.3 % (0-14.5); WHITE BLOOD COUNT 5.3 10*3/uL (4.8-10.8)
[2019-04-07 15:12] LABS: ALBUMIN 2.7 gm/dl (3.1-4.5); ALKALINE PHOSPHATASE 95 U/L (45-117); BUN 9 mg/dl (7-24); CHLORIDE 103 mmol/L (98-107); CREATININE 0.65 mg/dL (0.55-1.02); POTASSIUM 4.1 mmol/L (3.5-5.1); SGOT/AST 24 IU/L (3-35); SGPT/ALT 16 U/L (12-78); SODIUM 138 mmol/L (136-145); TOTAL PROTEIN 7.6 gm/dL (6.4-8.2)
== END 2019-04-07 18:31 | disposition home or self-care (01) ==
LOC: ED 13:22
PROVIDERS: Nurse Practitioner Family
DX: K14.8 Other diseases of tongue (principal); J02.9 Acute pharyngitis, unspecified; J44.9 Chronic obstructive pulmonary disease, unspecified; E11.9 Type 2 diabetes mellitus without complications; K21.9 Gastro-esophageal reflux disease without esophagitis; I50.9 Heart failure, unspecified; F17.200 Nicotine dependence, unspecified, uncomplicated; Z88.6 Allergy status to analgesic agent; Z88.1 Allergy status to other antibiotic agents; Z79.899 Other long term (current) drug therapy; Z90.710 Acquired absence of both cervix and uterus

== ENCOUNTER 2019-05-17 17:20 | Inpatient (IN) | payer MEDICAID ==
[~2019-05-17] VITALS: Ht 167.6 cm; Wt 76.7 kg
[2019-05-17 17:20] VITALS: BP 130/83
[2019-05-17 18:10] LABS: BASO # 0.1 10*3/uL (0.0-0.1); BASO % 0.4 % (0.0-1.0); EOS # 0.1 10*3/uL (0.0-0.4); EOS % 0.6 % (1.0-4.0); HEMATOCRIT 37.2 % (37.0-47.0); HEMOGLOBIN 12.1 g/dl (12.0-16.0); LYMPH # 1.9 10*3/uL (1.3-4.4); LYMPH % 13.6 % (27.0-41.0); MEAN CELL VOLUME 89.9 fl (81.0-99.0); MEAN CORPUSCULAR HGB 29.2 pg (27.0-31.0); MEAN CORPUSCULAR HGB CONC 32.5 g/dl (33.0-37.0); MEAN PLATELET VOLUME 8.9 fl (9.6-12.3); MONO # 1.2 10*3/uL (0.1-1.0); MONO % 8.4 % (3.0-9.0); NEUT # 10.8 10*3/uL (2.3-7.9); NEUT % 76.5 % (47.0-73.0); PLATELET COUNT AUTOMATED 278 10*3/uL (130-400); RED BLOOD COUNT 4.14 10*6/uL (4.10-5.10); RED CELL DISTRI WIDTH 13.9 % (0-14.5); WHITE BLOOD COUNT 14.1 10*3/uL (4.8-10.8)
[2019-05-17 18:14] VITALS: BP 124/73
[2019-05-17 18:22] LABS: ACT PARTIAL THROMBO TIME 26.8 SECONDS (20.0-32.1); INTERNATIONAL NORM RATIO 1.1 (2.0-3.5)
[2019-05-17 18:26] LABS: ALBUMIN 2.8 gm/dl (3.1-4.5); ALKALINE PHOSPHATASE 98 U/L (45-117); BUN 6 mg/dl (7-24); CHLORIDE 99 mmol/L (98-107); CREATININE 0.78 mg/dL (0.55-1.02); LIPASE 93 U/L (73-393); POTASSIUM 3.1 mmol/L (3.5-5.1); SGOT/AST 14 IU/L (3-35); SGPT/ALT 18 U/L (12-78); SODIUM 134 mmol/L (136-145); TOTAL PROTEIN 7.8 gm/dL (6.4-8.2)
[2019-05-17 18:27] LABS: TROPONIN I < 0.015 ng/ml (<0.045)
[2019-05-17 19:23] LABS: ABG BASE EXCESS 2.3 mmol/L (-2.0-2.0); ARTERIAL BLOOD GAS PH 7.415 (7.35-7.45)
[2019-05-17 19:27] LABS: BILIRUBIN NEGATIVE (NEGATIVE); CLARITY CLOUDY (CLEAR); COLOR YELLOW (YELLOW); GLUCOSE NEGATIVE (NEGATIVE); KETONE NEGATIVE (NEGATIVE); SPECIFIC GRAVITY 1.005 (1.005-1.030)
[2019-05-17 19:28] LABS: BLOOD 1+ (NEGATIVE); LEUKO ESTERASE 2+ (NEGATIVE); NITRITE POSITIVE (NEGATIVE); URINE AMPHETAMINES > 1000 (1000ng/ml); URINE BARBITURATES < 200 (200ng/ml); URINE BENZODIAZEPINES < 200 (200ng/ml); URINE CANNABINOIDS (THC) < 50 (50ng/ml); URINE COCAINE < 300 (300ng/ml); URINE METHADONE < 300 (300ng/ml); URINE OPIATES < 300 (300ng/ml)
[2019-05-17 19:30] LABS: URINE PHENCYCLIDINE < 25 (25ng/ml)
[2019-05-17 19:32] LABS: BACTERIA 4+; RBC 0-2 rbc/hpf (0-2); WBC TNTC wbc/hpf (0-5)
[2019-05-17 20:00] VITALS: BP 116/71
[2019-05-17 20:35] VITALS: BP 117/68
[2019-05-18] VITALS: BP 138/88
[2019-05-18 07:04] LABS: BASO # 0.1 10*3/uL (0.0-0.1); BASO % 0.5 % (0.0-1.0); EOS # 0.1 10*3/uL (0.0-0.4); EOS % 0.9 % (1.0-4.0); HEMATOCRIT 33.6 % (37.0-47.0); HEMOGLOBIN 10.9 g/dl (12.0-16.0); LYMPH # 2.4 10*3/uL (1.3-4.4); LYMPH % 19.7 % (27.0-41.0); MEAN CELL VOLUME 91.6 fl (81.0-99.0); MEAN CORPUSCULAR HGB 29.7 pg (27.0-31.0); MEAN CORPUSCULAR HGB CONC 32.4 g/dl (33.0-37.0); MEAN PLATELET VOLUME 8.8 fl (9.6-12.3); MONO # 1.2 10*3/uL (0.1-1.0); MONO % 10.1 % (3.0-9.0); NEUT # 8.3 10*3/uL (2.3-7.9); NEUT % 68.2 % (47.0-73.0); PLATELET COUNT AUTOMATED 230 10*3/uL (130-400); RED BLOOD COUNT 3.67 10*6/uL (4.10-5.10); RED CELL DISTRI WIDTH 14.2 % (0-14.5); WHITE BLOOD COUNT 12.1 10*3/uL (4.8-10.8)
[2019-05-18 07:37] LABS: ALBUMIN 2.2 gm/dl (3.1-4.5); ALKALINE PHOSPHATASE 81 U/L (45-117); BUN 5 mg/dl (7-24); CHLORIDE 107 mmol/L (98-107); CREATININE 0.49 mg/dL (0.55-1.02); PHOSPHOROUS 2.2 mg/dL (2.5-4.9); POTASSIUM 3.1 mmol/L (3.5-5.1); SGOT/AST 10 IU/L (3-35); SGPT/ALT 13 U/L (12-78); SODIUM 139 mmol/L (136-145); TOTAL PROTEIN 6.9 gm/dL (6.4-8.2)
[2019-05-18 08:00] VITALS: BP 153/90
[2019-05-18 16:00] VITALS: BP 153/90
[2019-05-19 06:12] LABS: BASO # 0.1 10*3/uL (0.0-0.1); BASO % 0.6 % (0.0-1.0); EOS # 0.1 10*3/uL (0.0-0.4); EOS % 1.5 % (1.0-4.0); HEMATOCRIT 34.1 % (37.0-47.0); HEMOGLOBIN 11.2 g/dl (12.0-16.0); LYMPH % 21.2 % (27.0-41.0); MEAN CELL VOLUME 91.2 fl (81.0-99.0); MEAN CORPUSCULAR HGB 29.9 pg (27.0-31.0); MEAN CORPUSCULAR HGB CONC 32.8 g/dl (33.0-37.0); MEAN PLATELET VOLUME 8.9 fl (9.6-12.3); MONO # 0.9 10*3/uL (0.1-1.0); MONO % 9.5 % (3.0-9.0); NEUT # 6.2 10*3/uL (2.3-7.9); NEUT % 66.7 % (47.0-73.0); PLATELET COUNT AUTOMATED 239 10*3/uL (130-400); RED BLOOD COUNT 3.74 10*6/uL (4.10-5.10); RED CELL DISTRI WIDTH 14.1 % (0-14.5); WHITE BLOOD COUNT 9.4 10*3/uL (4.8-10.8)
[2019-05-19 06:37] LABS: ALBUMIN 2.3 gm/dl (3.1-4.5); BUN 8 mg/dl (7-24); CHLORIDE 103 mmol/L (98-107); POTASSIUM 3.2 mmol/L (3.5-5.1); SODIUM 138 mmol/L (136-145)
[2019-05-19 06:41] LABS: ALKALINE PHOSPHATASE 84 U/L (45-117); CREATININE 0.53 mg/dL (0.55-1.02); SGOT/AST 16 IU/L (3-35); SGPT/ALT 14 U/L (12-78); TOTAL PROTEIN 7.3 gm/dL (6.4-8.2)
[2019-05-19 08:00] VITALS: BP 119/87
[2019-05-19] MEDS ORDERED: CEPHALEXIN500 M1 PO (11:35)
[2019-05-19 12:00] VITALS: BP 118/63
== END 2019-05-19 12:51 | disposition home or self-care (01) | DRG 872 ==
LOC: ED 17:20 → EDHOLD 19:23 → 5E 19:23
PROVIDERS: Internal Medicine; Nurse Practitioner Family; Student in an Organized Health Care Education/Training Program; ADMIT Internal Medicine
DX: A41.9 Sepsis, unspecified organism (principal); E44.0 Moderate protein-calorie malnutrition; E87.1 Hypo-osmolality and hyponatremia; N30.00 Acute cystitis without hematuria; E87.2 Acidosis; F33.9 Major depressive disorder, recurrent, unspecified; I50.32 Chronic diastolic (congestive) heart failure; K76.0 Fatty (change of) liver, not elsewhere classified; R65.20 Severe sepsis without septic shock; E87.6 Hypokalemia; R79.82 Elevated C-reactive protein (CRP); F15.10 Other stimulant abuse, uncomplicated; G60.0 Hereditary motor and sensory neuropathy; I11.0 Hypertensive heart disease with heart failure; E66.9 Obesity, unspecified; G40.909 Epilepsy, unspecified, not intractable, without status epilepticus; J41.1 Mucopurulent chronic bronchitis; F41.9 Anxiety disorder, unspecified; E55.9 Vitamin D deficiency, unspecified; R76.8 Other specified abnormal immunological findings in serum; F17.210 Nicotine dependence, cigarettes, uncomplicated; E78.1 Pure hyperglyceridemia; M54.30 Sciatica, unspecified side; E11.65 Type 2 diabetes mellitus with hyperglycemia; S31.109S Unspecified open wound of abdominal wall, unspecified quadrant without penetration into peritoneal cavity, sequela; Z99.81 Dependence on supplemental oxygen; Z68.27 Body mass index [BMI] 27.0-27.9, adult; Z90.49 Acquired absence of other specified parts of digestive tract; Z90.710 Acquired absence of both cervix and uterus; Z98.51 Tubal ligation status; Z82.49 Family history of ischemic heart disease and other diseases of the circulatory system; Z88.6 Allergy status to analgesic agent; Z88.1 Allergy status to other antibiotic agents; Z79.899 Other long term (current) drug therapy

== ENCOUNTER 2019-07-11 14:27 | Emergency (ER) | payer MEDICAID ==
[~2019-07-11] VITALS: Ht 167.6 cm; Wt 77.1 kg
[2019-07-11 14:33] VITALS: BP 162/78
[2019-07-11 17:31] LABS: BILIRUBIN NEGATIVE (NEGATIVE); BLOOD NEGATIVE (NEGATIVE); CLARITY CLEAR (CLEAR); COLOR YELLOW (YELLOW); EPITHELIAL CELLS 0-2; GLUCOSE NEGATIVE (NEGATIVE); KETONE NEGATIVE (NEGATIVE); LEUKO ESTERASE NEGATIVE (NEGATIVE); NITRITE NEGATIVE (NEGATIVE); SPECIFIC GRAVITY 1.005 (1.005-1.030); UROBILINOGEN 0.2 E.U./dl (0.2-1.0)
[2019-07-11] MEDS ORDERED: DOXYCYCLINE100 M3 PO (17:36)
== END 2019-07-11 17:46 | disposition home or self-care (01) ==
LOC: ED 14:27
PROVIDERS: Physician Assistant
DX: L08.89 Other specified local infections of the skin and subcutaneous tissue (principal); F17.200 Nicotine dependence, unspecified, uncomplicated; Z98.51 Tubal ligation status; Z98.890 Other specified postprocedural states; Z79.899 Other long term (current) drug therapy; Z88.6 Allergy status to analgesic agent; Z88.1 Allergy status to other antibiotic agents

== ENCOUNTER 2019-09-20 12:57 | Emergency (ER) | payer MEDICAID ==
[~2019-09-20] VITALS: Ht 167.6 cm; Wt 81.2 kg
[2019-09-20 12:59] VITALS: BP 169/78
== END 2019-09-20 16:38 | disposition home or self-care (01) ==
LOC: ED 12:57
DX: T82.524A Displacement of infusion catheter, initial encounter (principal); J44.9 Chronic obstructive pulmonary disease, unspecified; I50.9 Heart failure, unspecified; I11.0 Hypertensive heart disease with heart failure; G40.909 Epilepsy, unspecified, not intractable, without status epilepticus; E66.9 Obesity, unspecified; F17.210 Nicotine dependence, cigarettes, uncomplicated; Z68.34 Body mass index [BMI] 34.0-34.9, adult; Y92.89 Other specified places as the place of occurrence of the external cause

== ENCOUNTER 2019-12-05 10:53 | Emergency (ER) | payer MEDICAID ==
[~2019-12-05] VITALS: Ht 167.6 cm; Wt 82.6 kg
[2019-12-05 11:07] VITALS: BP 116/73
[2019-12-05] MEDS ORDERED: AUGMENTIN 875875 MG PO (13:20)
[2019-12-05] MEDS ORDERED: TYLENOL325 M1 PO (13:20)
== END 2019-12-05 13:30 | disposition home or self-care (01) ==
LOC: ED 10:53
DX: J02.9 Acute pharyngitis, unspecified (principal); Z88.5 Allergy status to narcotic agent; Z79.899 Other long term (current) drug therapy

== ENCOUNTER 2019-12-31 17:15 | Observation (INO) | payer MEDICAID ==
[~2019-12-31] VITALS: Ht 167.6 cm; Wt 78.2 kg
[~2019-12-31 17:15] MED LIST changes: +TYLENOL325 M1 PO
[2019-12-31 17:19] VITALS: BP 119/55
[2019-12-31 18:05] LABS: BASO # 0.1 10*3/uL (0.0-0.1); BASO % 0.8 % (0.0-1.0); EOS # 0.2 10*3/uL (0.0-0.4); EOS % 2.8 % (1.0-4.0); HEMATOCRIT 34.6 % (37.0-47.0); LYMPH # 1.8 10*3/uL (1.3-4.4); LYMPH % 24.3 % (27.0-41.0); MEAN CORPUSCULAR HGB 29.8 pg (27.0-31.0); MEAN CORPUSCULAR HGB CONC 32.4 g/dl (33.0-37.0); MEAN PLATELET VOLUME 8.8 fl (9.6-12.3); MONO # 1.1 10*3/uL (0.1-1.0); MONO % 14.6 % (3.0-9.0); NEUT # 4.1 10*3/uL (2.3-7.9); NEUT % 56.9 % (47.0-73.0); PLATELET COUNT AUTOMATED 219 10*3/uL (130-400); RED BLOOD COUNT 3.76 10*6/uL (4.10-5.10); RED CELL DISTRI WIDTH 14.4 % (0-14.5); WHITE BLOOD COUNT 7.3 10*3/uL (4.8-10.8)
[2019-12-31 18:12] LABS: ACT PARTIAL THROMBO TIME 23.9 SECONDS (20.0-32.1)
[2019-12-31 18:20] LABS: ALBUMIN 2.9 gm/dl (3.1-4.5); ALKALINE PHOSPHATASE 80 U/L (45-117); BUN 23 mg/dl (7-24); CHLORIDE 103 mmol/L (98-107); CREATININE 0.69 mg/dL (0.55-1.02); LIPASE 78 U/L (73-393); SGOT/AST 31 IU/L (3-35); SGPT/ALT 22 U/L (12-78); SODIUM 136 mmol/L (136-145); TOTAL PROTEIN 7.7 gm/dL (6.4-8.2)
[2019-12-31 18:34] LABS: TROPONIN I < 0.015 ng/ml (<0.045)
--- NOTE | 2019-12-31 19:10 | NUR ---
Transfer of care from Jordana wang.
--- NOTE | 2019-12-31 19:28 | NUR ---
In to see pt at this time.Pt is alert x3.Diminshed lung sounds in the bases at this time and abdomen is distended in left lower quadrant with dressing in place on open part of abdomen,Bs x4 and [address] on left arm.
[2019-12-31 19:29] VITALS: BP 110/65
[2020-01-01] VITALS (10 sets, daily range): BP systolic 99–176; BP diastolic 53–84
--- NOTE | 2020-01-01 00:53 | NUR ---
Picture taken of lower abdomen at this time.Large wound noted with serosangnious drainage at this time.Tape gauze dressing reapplied at this time. =
--- NOTE | 2020-01-01 02:12 | NUR ---
Pt currently sleeping at this time.
--- NOTE | 2020-01-01 03:01 | NUR ---
Pt ambulated and went to the bathroom without issue.Pt states pain is much better at this time.Pt states she does not need anything at this time.
[2020-01-01 05:22] LABS: BUN 20 mg/dl (7-24); CHLORIDE 104 mmol/L (98-107); CREATININE 0.66 mg/dL (0.55-1.02); POTASSIUM 4.1 mmol/L (3.5-5.1); SODIUM 138 mmol/L (136-145)
[2020-01-01 05:25] LABS: CHOLESTEROL 142 mg/dL (<200); HDL CHOLESTEROL 27 mg/dl (40-60); LDL CHOLESTEROL 81 mg/dL (9-159); TRIGLYCERIDES 171 mg/dl (<150); VLDL CHOLESTEROL 34 mg/dL (6-40)
[2020-01-01 05:59] LABS: BASO # 0.1 10*3/uL (0.0-0.1); EOS # 0.2 10*3/uL (0.0-0.4); EOS % 3.4 % (1.0-4.0); HEMATOCRIT 35.2 % (37.0-47.0); LYMPH % 28.6 % (27.0-41.0); MEAN CELL VOLUME 92.4 fl (81.0-99.0); MEAN CORPUSCULAR HGB 29.9 pg (27.0-31.0); MEAN CORPUSCULAR HGB CONC 32.4 g/dl (33.0-37.0); MEAN PLATELET VOLUME 8.9 fl (9.6-12.3); NEUT # 3.6 10*3/uL (2.3-7.9); NEUT % 51.7 % (47.0-73.0); PLATELET COUNT AUTOMATED 223 10*3/uL (130-400); RED BLOOD COUNT 3.81 10*6/uL (4.10-5.10); RED CELL DISTRI WIDTH 14.3 % (0-14.5); WHITE BLOOD COUNT 6.9 10*3/uL (4.8-10.8)
--- NOTE | 2020-01-01 06:20 | NUR ---
In to see pt at this time.Pt walked to the bathroom and states she is doing she just needs pain medication at this time.
--- NOTE | 2020-01-01 07:10 | NUR ---
Transfer of care to [facility] wang,
--- NOTE | 2020-01-01 09:22 | NUR ---
PATIENT RESTIN IN BED WATCHING TV. DENIES NEEDS AT THIS TIME. RESPIRATIONS EASY AND REGULAR.
[2020-01-01 10:09] LABS: VITAMIN D, 25-HYDROXY 32.8 ng/mL (30-100)
--- NOTE | 2020-01-01 11:40 | NUR ---
DR. KU AT BEDSIDE TO SEE PATIENT
--- NOTE | 2020-01-01 11:50 | NUR ---
ABDOMINAL DRESSING REPLACED WITH XEROFORM AND ABD PAD PER DR. KU.
--- NOTE | 2020-01-01 13:43 | NUR ---
PT RESTING IN BED WITH EYES CLOSED. RESPIRATIONS EASY AND REGULAR.
[2020-01-01] MEDS ORDERED: OXYBUTYNIN ER15 MG PO (13:50)
[2020-01-01] MEDS ORDERED: CLOPIDOGREL75 MG PO (13:52)
[2020-01-01] MEDS ORDERED: MIRTAZAPINE30 M2 PO (13:59)
[2020-01-01] MEDS ORDERED: GABAPENTIN400 MG PO (14:01)
[2020-01-01] MEDS ORDERED: VRAYLAR4.5 MG PO (14:01)
[2020-01-01] MEDS ORDERED: CETIRIZINE HYDR10 MG PO (14:02)
[2020-01-01] MEDS ORDERED: XANAX1 MG PO (14:03)
[2020-01-01] MEDS ORDERED: CYMBALTA60 MG PO (14:04)
[2020-01-01] MEDS ORDERED: LISINOPRIL20 MG PO (14:05)
--- NOTE | 2020-01-01 14:27 | NUR ---
PHYSICIAN NOTIFIED THAT PATIENT IS ASKING ABOUT HOME MEDICATIONS AND MEDICATION RECONCILIATION IS COMPLETED.
--- NOTE | 2020-01-01 16:30 | NUR ---
Time: 1629 A 59 year old FEMALE admitted to 5E under services of MARLENE TURPIN DO. Pt. arrived via [facility]ER from ER. Chief complaint: ABDOMINAL PAIN. JESSICA EVANS
--- NOTE | 2020-01-01 16:50 | NUR ---
PT STATES THAT SHE DID NOT RECEIVE THE FLU VACCINE AND SHE DOES NOT WANT IT. SHE STATED LAST TIME SHE HAD RECEIVED IT SHE HAD GOTTEN SICK.
--- NOTE | 2020-01-01 18:13 | NUR ---
PRN NORCO WAS GIVEN FOR A HEADACHE AND LLQ PAIN. PT STATES HER LLQ PAIN IS A 5/10. WILL REASSESS EFFECTIVENESS.
[2020-01-02] VITALS: BP 116/67
--- NOTE | 2020-01-02 05:34 | NUR ---
IV MORPHINE GIVEN FOR C/O LLQ ABD PAIN RATED 7/10. WILL MONITOR EFFECTIVENESS. CALL LIGHT LEFT IN REACH.
--- NOTE | 2020-01-02 06:06 | NUR ---
EARLIER MORPHINE APPEARS EFFECTIVE. PT ASLEEP IN BED. NO S/S OF DISTRESS NOTED.
--- NOTE | 2020-01-02 06:13 | NUR ---
PT C/O SORE MOUTH. TONGUE/MUCOUS MEMBRANES RED. PT STATES SHE HAS THRUSH. NOTIFIED, NEW ORDER FOR [facility] SWISH [facility] SWALLOW RECEIVED.
[2020-01-02 06:46] LABS: BASO # 0.1 10*3/uL (0.0-0.1); BASO % 0.8 % (0.0-1.0); EOS # 0.2 10*3/uL (0.0-0.4); EOS % 2.9 % (1.0-4.0); HEMATOCRIT 35.5 % (37.0-47.0); LYMPH # 2.4 10*3/uL (1.3-4.4); LYMPH % 38.3 % (27.0-41.0); MEAN CORPUSCULAR HGB CONC 31.5 g/dl (33.0-37.0); MEAN PLATELET VOLUME 8.7 fl (9.6-12.3); MONO # 0.7 10*3/uL (0.1-1.0); MONO % 11.1 % (3.0-9.0); NEUT # 2.9 10*3/uL (2.3-7.9); NEUT % 46.6 % (47.0-73.0); PLATELET COUNT AUTOMATED 241 10*3/uL (130-400); RED BLOOD COUNT 3.86 10*6/uL (4.10-5.10); WHITE BLOOD COUNT 6.2 10*3/uL (4.8-10.8)
[2020-01-02 08:00] VITALS: BP 128/70
--- NOTE | 2020-01-02 09:00 | NUR ---
Lead Level Designer in to talk to patient. Patient states lives at home with daughter. There are 10 steps in the home. Physician: elena aquino Pharmacy: [facility] Home health services: none at present Patient's level of ADLs: INDEPENDENT Patient has working utilities: all working DME: cane, home oxygen at hs Follow-up physician's appointment after d/c: will be made by hospitalist nurse director upon discharge Does patient want to access PORTAL?: no Discharge plan discussed with patient she states she hiram at home with family, she uses a cane for ambulation, she is independent in adls. she stated she would return home when discharged and denies any home needs, case management will follow. XIOMARA FLORES
--- NOTE | 2020-01-02 10:07 | NUR ---
REQUESTED AND WAS MEDICATED WITH MORPHINE IV FOR C/O ABDOMINAL PAIN. WILL MONITOR
--- NOTE | 2020-01-02 11:00 | NUR ---
MEDICATION EFFECTIVE PER PT
[2020-01-02] MEDS ORDERED: Nystatin 100,000 UNI PO (11:29)
--- NOTE | 2020-01-02 13:30 | NUR ---
PT REFUSED DISCHARGE WOUND PHOTO.
--- NOTE | 2020-01-02 13:55 | NUR ---
Discharge instructions reviewed with patient/family. Patient receptive and verbalizes understanding. Follow-up care arranged. Written instructions given to patient/family. TEJ JOEL
[2020-01-02] MEDS ORDERED: TYLENOL EXTRA500 MG PO (14:16)
== END 2020-01-02 13:55 | disposition home or self-care (01) ==
LOC: ED 17:15 → EDHOLD 22:37 → 5E 01-01 15:57
PROVIDERS: Emergency Medicine; Hospitalist; Internal Medicine; ADMIT Internal Medicine; ATTEND Internal Medicine
DX: K43.9 Ventral hernia without obstruction or gangrene (principal); I11.0 Hypertensive heart disease with heart failure; I50.30 Unspecified diastolic (congestive) heart failure; K56.609 Unspecified intestinal obstruction, unspecified as to partial versus complete obstruction; D64.9 Anemia, unspecified; E83.41 Hypermagnesemia; F31.9 Bipolar disorder, unspecified; E11.9 Type 2 diabetes mellitus without complications; J44.9 Chronic obstructive pulmonary disease, unspecified

== ENCOUNTER 2021-01-18 11:27 | Emergency (ER) | payer OTHER ==
[~2021-01-18] VITALS: Ht 165.1 cm; Wt 90.7 kg
[~2021-01-18 11:27] MED LIST changes: +CETIRIZINE HYDR10 MG PO; +CLOPIDOGREL75 MG PO; +MIRTAZAPINE30 M2 PO; +Nystatin 100,000 UNI PO; +OXYBUTYNIN ER15 MG PO; +TYLENOL EXTRA500 MG PO
[2021-01-18 11:47] LABS: BILIRUBIN 2+ (Negative); BLOOD Negative (Negative); CLARITY Turbid (Clear); COLOR Orange (Yellow); GLUCOSE Negative (Negative); KETONE Negative (Negative); LEUKO ESTERASE 3+ (Negative); NITRITE Positive (Negative); SPECIFIC GRAVITY >= 1.030 (1.001-1.030)
[2021-01-18 11:57] LABS: HEMATOCRIT 48.3 % (37.0-47.0); MEAN CELL VOLUME 92.9 fl (81.0-99.0); MEAN CORPUSCULAR HGB CONC 32.3 g/dl (33.0-37.0); MEAN PLATELET VOLUME 9.3 fl (9.6-12.3); PLATELET COUNT AUTOMATED 325 10*3/uL (130-400); RED CELL DISTRI WIDTH 13.5 % (0-14.5)
[2021-01-18 12:04] LABS: BACTERIA 4+; WBC TNTC wbc/hpf (0-5)
[2021-01-18 12:14] LABS: PLATELET SUFFICIENCY NORMAL (NORMAL); POLYCHROMASIA SLIGHT; TOTAL CELLS COUNTED 100 #CELLS
[2021-01-18 12:15] LABS: CREATININE 3.17 mg/dL (0.55-1.02); POTASSIUM 4.6 mmol/L (3.5-5.1); TOTAL PROTEIN 8.1 gm/dL (6.4-8.2)
[2021-01-18 16:40] VITALS: BP 98/62
[2021-01-30] MEDS ORDERED: METRONIDAZOLE500 M1 PO (09:08)
[2021-01-30] MEDS ORDERED: LEVOFLOXACIN750 M2 PO (09:08)
== END 2021-01-18 19:00 | disposition short-term general hospital (02) ==
LOC: ED 11:27
PROVIDERS: Student in an Organized Health Care Education/Training Program
DX: K55.8 Other vascular disorders of intestine (principal); Z20.822 Contact with and (suspected) exposure to COVID-19; Z88.1 Allergy status to other antibiotic agents; Z88.6 Allergy status to analgesic agent; Z79.899 Other long term (current) drug therapy; F17.200 Nicotine dependence, unspecified, uncomplicated

== ENCOUNTER 2021-01-27 13:32 | Inpatient (IN) | payer OTHER ==
[~2021-01-27] VITALS: Ht 160 cm; Wt 75.0 kg
[2021-01-27 13:32] VITALS: BP 114/67
[2021-01-27 15:00] LABS: HEMATOCRIT 27.8 % (37.0-47.0); MEAN CELL VOLUME 92.7 fl (81.0-99.0); MEAN CORPUSCULAR HGB 30.3 pg (27.0-31.0); MEAN CORPUSCULAR HGB CONC 32.7 g/dl (33.0-37.0); MEAN PLATELET VOLUME 9.2 fl (9.6-12.3); PLATELET COUNT AUTOMATED 409 10*3/uL (130-400); RED CELL DISTRI WIDTH 14.3 % (0-14.5); WHITE BLOOD COUNT 22.6 10*3/uL (4.8-10.8)
[2021-01-27 15:15] VITALS: BP 116/67
[2021-01-27 15:20] LABS: ALBUMIN 2.2 gm/dl (3.1-4.5); CREATININE 1.67 mg/dL (0.55-1.02); POTASSIUM 4.1 mmol/L (3.5-5.1)
[2021-01-27 15:45] LABS: PLATELET SUFFICIENCY HIGH (NORMAL); TOTAL CELLS COUNTED 100 #CELLS; TOXIC GRANULATION SLIGHT
[2021-01-27 16:52] LABS: BILIRUBIN Negative (Negative); BLOOD Negative (Negative); CLARITY Clear (Clear); COLOR Dark Yellow (Yellow); GLUCOSE Negative (Negative); KETONE Negative (Negative); LEUKO ESTERASE Trace (Negative); NITRITE Negative (Negative)
[2021-01-27 17:02] LABS: BACTERIA 2+; RBC 0-2 rbc/hpf (0-2)
[2021-01-27] MEDS ORDERED: XANAX1 MG PO (17:29)
[2021-01-27] MEDS ORDERED: ALBUTEROL2.5 MG/0.5 INH (17:29)
[2021-01-27] MEDS ORDERED: PLAVIX75 M1 PO (17:30)
[2021-01-27] MEDS ORDERED: ANORO ELLIPTA1 EACH INH (17:30)
[2021-01-27] MEDS ORDERED: WELLBUTRIN XL150 MG PO (17:30)
[2021-01-27] MEDS ORDERED: OXYCODONE HCL5 MG PO (17:31)
[2021-01-27] MEDS ORDERED: DOXEPIN HCL10 MG PO (17:31)
[2021-01-27] MEDS ORDERED: FLOVENT HFA10.6 GM INH (17:32)
[2021-01-27] MEDS ORDERED: NEURONTIN300 MG PO (17:33)
[2021-01-27] MEDS ORDERED: FLONASE ALLERG9.9 ML NAS (17:33)
[2021-01-27] MEDS ORDERED: ZESTRIL20 MG PO (17:34)
[2021-01-27] MEDS ORDERED: METFORMIN HYD1000 MG PO (17:34)
[2021-01-27] MEDS ORDERED: METHOCARBAMOL500 M1 PO (17:35)
[2021-01-27] MEDS ORDERED: LOPRESSOR25 MG PO (17:35)
[2021-01-27] MEDS ORDERED: OMEPRAZOLE40 MG PO (17:35)
[2021-01-27] MEDS ORDERED: REMERON30 M1 PO (17:36)
[2021-01-27] MEDS ORDERED: OXYBUTYNIN ER15 MG PO (17:36)
[2021-01-27] MEDS ORDERED: VITAMIN D325 MCG PO (17:36)
[2021-01-27] MEDS ORDERED: VRAYLAR4.5 MG PO (17:37)
[2021-01-27 18:40] VITALS: BP 104/67
[2021-01-27 19:51] VITALS: BP 100/58
[2021-01-28] VITALS (7 sets, daily range): BP systolic 91–107; BP diastolic 56–68
[2021-01-28] MEDS ORDERED: FIBERCON625 MG PO (00:58)
[2021-01-28] MEDS ORDERED: CALCIUM CARBON500 M3 PO (00:59)
[2021-01-28 06:06] LABS: ALBUMIN 1.8 gm/dl (3.1-4.5); ALKALINE PHOSPHATASE 55 U/L (45-117); BUN 27 mg/dl (7-24); CHLORIDE 99 mmol/L (98-107); CHOLESTEROL 86 mg/dL (<200); CREATININE 1.09 mg/dL (0.55-1.02); FREE T4 1.49 ng/dl (0.76-1.46); LDL CHOLESTEROL 35 mg/dL (9-159); POTASSIUM 3.9 mmol/L (3.5-5.1); SGOT/AST 16 IU/L (3-35); SGPT/ALT 13 U/L (12-78); SODIUM 135 mmol/L (136-145); TOTAL PROTEIN 6.8 gm/dL (6.4-8.2); TRIGLYCERIDES 140 mg/dl (<150)
[2021-01-28 06:26] LABS: BASO # 0.1 10*3/uL (0.0-0.1); BASO % 0.3 % (0.0-1.0); EOS # 0.2 10*3/uL (0.0-0.4); EOS % 1.3 % (1.0-4.0); HEMATOCRIT 24.8 % (37.0-47.0); LYMPH # 2.1 10*3/uL (1.3-4.4); LYMPH % 13.5 % (27.0-41.0); MEAN CORPUSCULAR HGB 29.9 pg (27.0-31.0); MEAN CORPUSCULAR HGB CONC 31.5 g/dl (33.0-37.0); MEAN PLATELET VOLUME 9.6 fl (9.6-12.3); MONO # 1.1 10*3/uL (0.1-1.0); NEUT # 11.9 10*3/uL (2.3-7.9); NEUT % 76.8 % (47.0-73.0); PLATELET COUNT AUTOMATED 379 10*3/uL (130-400); RED BLOOD COUNT 2.61 10*6/uL (4.10-5.10); RED CELL DISTRI WIDTH 14.3 % (0-14.5); WHITE BLOOD COUNT 15.5 10*3/uL (4.8-10.8)
[2021-01-28 10:03] LABS: VITAMIN D, 25-HYDROXY 32.2 ng/mL (30-100)
[2021-01-29 07:27] LABS: BASO # 0.1 10*3/uL (0.0-0.1); BASO % 0.4 % (0.0-1.0); EOS # 0.2 10*3/uL (0.0-0.4); EOS % 1.4 % (1.0-4.0); HEMATOCRIT 24.6 % (37.0-47.0); LYMPH # 1.4 10*3/uL (1.3-4.4); LYMPH % 12.6 % (27.0-41.0); MEAN CELL VOLUME 96.1 fl (81.0-99.0); MEAN CORPUSCULAR HGB 30.5 pg (27.0-31.0); MEAN CORPUSCULAR HGB CONC 31.7 g/dl (33.0-37.0); MEAN PLATELET VOLUME 9.2 fl (9.6-12.3); MONO # 0.9 10*3/uL (0.1-1.0); MONO % 7.9 % (3.0-9.0); NEUT # 8.6 10*3/uL (2.3-7.9); NEUT % 76.9 % (47.0-73.0); PLATELET COUNT AUTOMATED 412 10*3/uL (130-400); RED BLOOD COUNT 2.56 10*6/uL (4.10-5.10); RED CELL DISTRI WIDTH 14.4 % (0-14.5); WHITE BLOOD COUNT 11.2 10*3/uL (4.8-10.8)
[2021-01-29 07:38] LABS: BUN 23 mg/dl (7-24); CHLORIDE 102 mmol/L (98-107); CREATININE 0.98 mg/dL (0.55-1.02); POTASSIUM 3.9 mmol/L (3.5-5.1); SODIUM 136 mmol/L (136-145)
[2021-01-29 08:00] VITALS: BP 95/56
[2021-01-29 12:00] VITALS: BP 108/66
[2021-01-29 14:00] VITALS: BP 112/65
[2021-01-29 16:00] VITALS: BP 112/65
[2021-01-29 20:00] VITALS: BP 101/62
[2021-01-30] VITALS: BP 126/76
[2021-01-30 05:56] LABS: BUN 20 mg/dl (7-24); CHLORIDE 100 mmol/L (98-107); CREATININE 1.07 mg/dL (0.55-1.02); POTASSIUM 3.9 mmol/L (3.5-5.1); SODIUM 137 mmol/L (136-145)
[2021-01-30 06:08] LABS: BASO # 0.1 10*3/uL (0.0-0.1); BASO % 0.6 % (0.0-1.0); EOS # 0.2 10*3/uL (0.0-0.4); HEMATOCRIT 26.8 % (37.0-47.0); LYMPH # 1.9 10*3/uL (1.3-4.4); LYMPH % 18.9 % (27.0-41.0); MEAN CELL VOLUME 94.7 fl (81.0-99.0); MEAN CORPUSCULAR HGB CONC 31.7 g/dl (33.0-37.0); MEAN PLATELET VOLUME 8.9 fl (9.6-12.3); MONO # 0.8 10*3/uL (0.1-1.0); MONO % 8.1 % (3.0-9.0); NEUT # 6.9 10*3/uL (2.3-7.9); NEUT % 69.8 % (47.0-73.0); PLATELET COUNT AUTOMATED 479 10*3/uL (130-400); RED BLOOD COUNT 2.83 10*6/uL (4.10-5.10); RED CELL DISTRI WIDTH 14.2 % (0-14.5); WHITE BLOOD COUNT 9.9 10*3/uL (4.8-10.8)
[2021-01-30 08:00] VITALS: BP 117/66
[2021-01-30] MEDS ORDERED: LASIX40 MG PO (09:08)
[2021-01-30] MEDS ORDERED: METRONIDAZOLE500 M1 PO ×2 (09:08)
[2021-01-30] MEDS ORDERED: LEVOFLOXACIN750 M2 PO ×2 (09:08)
[2021-02-03] MEDS ORDERED: CETIRIZINE10 MG PO (18:51)
== END 2021-01-30 10:15 | disposition home or self-care (01) | DRG 871 ==
LOC: ED 13:32 → EDHOLD 18:37 → 5E 18:37 → EDHOLD 20:27 → 5E 01-28 22:17
PROVIDERS: Family Medicine; Internal Medicine; Physician Assistant; Student in an Organized Health Care Education/Training Program; ADMIT Internal Medicine; ATTEND Internal Medicine
DX: A41.9 Sepsis, unspecified organism (principal); N17.0 Acute kidney failure with tubular necrosis; E43 Unspecified severe protein-calorie malnutrition; E87.1 Hypo-osmolality and hyponatremia; L02.91 Cutaneous abscess, unspecified; J96.11 Chronic respiratory failure with hypoxia; I50.32 Chronic diastolic (congestive) heart failure; F41.9 Anxiety disorder, unspecified; R65.20 Severe sepsis without septic shock; M54.30 Sciatica, unspecified side; E78.1 Pure hyperglyceridemia; G60.0 Hereditary motor and sensory neuropathy; E55.9 Vitamin D deficiency, unspecified; M51.37 Other intervertebral disc degeneration, lumbosacral region; D75.839 Thrombocytosis, unspecified; F17.210 Nicotine dependence, cigarettes, uncomplicated; K76.0 Fatty (change of) liver, not elsewhere classified; E87.8 Other disorders of electrolyte and fluid balance, not elsewhere classified; D64.9 Anemia, unspecified; J44.9 Chronic obstructive pulmonary disease, unspecified; F31.9 Bipolar disorder, unspecified; E11.9 Type 2 diabetes mellitus without complications; I11.0 Hypertensive heart disease with heart failure; Z90.710 Acquired absence of both cervix and uterus; Z80.9 Family history of malignant neoplasm, unspecified; Z82.49 Family history of ischemic heart disease and other diseases of the circulatory system; Z79.899 Other long term (current) drug therapy; Z71.6 Tobacco abuse counseling; Z68.29 Body mass index [BMI] 29.0-29.9, adult